=== PATIENT | female | born 1965 ===

== ENCOUNTER 2016-12-21 14:47 | Inpatient (IN) | payer BC, OTHER ==
[2016-12-21] MEDS ORDERED: Morphine 4 mg/ml ISec IVP STA (15:29)
[2016-12-21] MEDS ORDERED: Sodium Chloride 0.9% 500 ML IV STA (15:29)
--- NOTE | 2016-12-21 15:43 | ED PDOC ---
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 Reports taking Percocet for pain, states that she gets the Rx for Percocet from her pain management doctor for chronic back pain, and it improves the abdominal pain. Otherwise: (-) urinary symptoms, (-) diarrhea, (-) constipation , (-) fever, (-) melena, (-) hematochezia. Has no history of prior abdominal conditions including GB disease & PUD, and denies any abdominal surgery. Patient also states she has not taken her blood pressure medication for over a week, states that she takes Hyzaar however was not able to obtain a refill from her pmd. Also is c/o gradual onset of mild headache to her forehead which she attributes to her elevated blood pressure, reports not taking any medication for her headache. Denies any dizziness, chest pain palpitations and shortness of breath. PMD: in [place] Past Medical History - Provider Review Nursing Documentation Reviewed: Yes - Infectious Disease Hx of Infectious Diseases: None - Tetanus Immunization Tetanus Immunization: Unknown - Cardiac Hx Hypertension: Yes - Pulmonary Hx Asthma: Yes - Neurological Hx Neurological Disorder: No - HEENT Hx HEENT Disorder: No - Renal Hx Renal Disorder: No - Endocrine/Metabolic Hx Endocrine Disorders: No - Hematological/Oncological Hx Blood Disorders: No Hx Blood Transfusions: No Hx Blood Transfusion Reaction: No - Integumentary Hx Dermatological Disorder: No - Musculoskeletal/Rheumatological Hx Back Pain: Yes - Gastrointestinal Hx Gastrointestinal Disorders: No - Genitourinary/Gynecological Hx Genitourinary Disorders: No - Psychiatric Hx Psychophysiologic Disorder: No Hx Substance Use: No - Past Surgical History Past Surgical History: No Previous - Surgical History Other/Comment: tonsillectomy - Anesthesia Hx Anesthesia: Yes - Suicidal Assessment Feels Threatened In Home Enviroment: No Family/Social History - Physician Review Nursing Documentation Reviewed: Yes Family/Social History: No Known Family HX Smoking Status: Former Smoker Hx Alcohol Use: No Hx Substance Use: No Hx Substance Use Treatment: No Allergies/Home Meds Allergies/Adverse Reactions: Allergies No Known Allergies Allergy (Verified 12/21/16 15:08) Home Medications: Home Meds Medication Instructions Recorded Confirmed HCTZ/Losartan Potassium [Hyzaar 1 tab PO DAILY 12/21/16 12/21/16 12.5 MG-50 MG] oxyCODONE/Acetaminophen [Percocet 1 tab PO Q6 PRN 12/21/16 12/21/16 5/325 mg Tab] Review of Systems - Review of Systems Constitutional: Normal. absent: Fatigue, Weight Change, Fevers Respiratory: Normal. absent: SOB, Cough, Sputum Cardiovascular: Normal. absent: Chest Pain, Palpitations, Edema Gastrointestinal: Normal, Abdominal Pain (epigastric pain x 1 week), Nausea, Vomiting. absent: Stool Changes, Appetite Changes Genitourinary Female: Normal. absent: Dysuria, Frequency, Hematuria, Vaginal Discharge Musculoskeletal: Normal. absent: Arthralgias, Back Pain, Neck Pain Skin: Normal. absent: Rash, Pruritis, Skin Lesions Neurological: Normal, Headache (started this AM). absent: Dizziness, Focal Weakness Physical Exam - Physical Exam Narrative Physical Exam (Text): 12/21/16 15:37 GENERAL APPEARANCE: Patient is awake, alert, oriented x 3, in moderate distress. SKIN: Warm, dry; (-) cyanosis. EYES: (-) conjunctival pallor, (-) scleral icterus. ENMT: Mucous membranes aguila. NECK: (-) tenderness, (-) stiffness, (-) lymphadenopathy. CHEST AND RESPIRATORY: (-) rales, (-) rhonchi, (-) wheezes; breath sounds equal bilaterally. HEART AND CARDIOVASCULAR: (-) irregularity; (-) murmur, (-) gallop. ABDOMEN AND GI: (-) distention. Bowel sounds active; (+) moderate RUQ and epigastric tenderness, (+) Tobar's, (-) guarding, (-) rebound, (-) palpable masses, (-) CVA tenderness. EXTREMITIES: (-) deformity, (-) edema, (+) distal pulses. NEURO AND PSYCH: Mental status as above; (-) focal findings. Vital Signs Temp Pulse Resp BP Pulse Ox 12/21/16 20:00 68 20 144/94 H 99 12/21/16 16:48 86 18 144/77 99 12/21/16 16:06 89 156/83 H 12/21/16 15:09 98.1 F 95 H 18 94 L Medical Decision Making ED Course and Treatment: 12/21/16 15:36 51 yo F c/o intermittent epigastric pain with N/V, r/o cholecystitis vs dyspepsia. Pt is also c/o elevated BP due to not taking her hyzaar and headache. Plan: -- Labs -- IV fluids -- Urinalysis -- EKG -- CXR -- Morphine / Zofran / Pepcid - all ordered, but pt refused -- Reassess and disposition -- US ABD EKG: SR at 86 bpm, with occasional PVCs, (-) acute ST changes, as read by GAVIN. CXR : NAD, as read by GAVIN 12/21/16 19:00 On re-evaluation, patient returns from US without any incident and reports of improvement of pain. She refused all IV medications ordered. On exam, patient is laying in bed comfortably in no acute distress. Abdomen is soft with no tenderness at this time. Labs reviewed, WBC is wnl, LFTs are noted to be elevated including T bili. US abd results shows evidence of acute cholecystitis. IV zosyn ordered. Case d/w Dr. Welsh, agrees with plan for inpatient care, consults ordered as requested by Dr. Welsh. Bridge orders placed. Patient notified of diagnostic results and diagnosis. She agrees with further plan for inpatient care. - Lab Interpretations Lab Results: 12/21/16 16:00 12/21/16 16:00 Lab Results 12/21/16 18:56: Urine Color Yellow, Urine Appearance Clear, Urine pH 6.0, Ur Specific [place] >= 1.030, Urine Protein 30 H, Urine Glucose (UA) Negative, Urine Ketones Trace H, Urine Blood Negative, Urine Nitrate Negative, Urine Bilirubin Moderate H, Urine Urobilinogen 4.0 H, Ur Leukocyte Esterase Negative, Urine RBC 0 - 2, Urine WBC 0 - 2, Ur Epithelial Cells Many, Amorphous Sediment Few, Urine Bacteria Many, Urine Other Uyeast 12/21/16 16:00: Sodium 138, Potassium 4.3, Chloride 106, Carbon Dioxide 22, Anion Gap 14, BUN 14, Creatinine 0.9, Est GFR ( Amer) > 60, Est GFR (Non- Af Amer) > 60, Random Glucose 144 H, Calcium 9.1, Total Bilirubin 2.3 H, AST 391 H, ALT 363 H, Alkaline Phosphatase 225 H, Troponin I < 0.01, Total Protein 7.9, Albumin 4.1, Globulin 3.8, Albumin/Globulin Ratio 1.1, Lipase 196 12/21/16 16:00: PT 10.7, INR 0.99, APTT 24.2 12/21/16 16:00: WBC 6.5, RBC 4.49, Hgb 12.5, Hct 37.8, MCV 84.2, MCH 27.8, MCHC 33.1, RDW 15.5 H, Plt Count 321, MPV 10.8, Gran % 71.8 H, Lymph % (Auto) 20.7 L , [place] % (Auto) 5.3, Eos % (Auto) 2.0, Baso % (Auto) 0.2, Gran # 4.65, Lymph # 1.3, [place] # 0.3, Eos # 0.1, Baso # 0.01 I have reviewed the lab results: Yes (LFTs are elevated) - RAD Interpretation Narrative RAD Interpretations (Text): 12/21/16 18:35 US abd: FINDINGS: LIVER: Measures approximately 15.2 x 13.3 x 17.1 cm. Echogenic liver may be seen in setting of hepatic parenchymal disease or fatty infiltration. No focal hepatic mass identified. The main portal vein appears patent with normal directional flow. No intrahepatic bile duct dilatation. GALLBLADDER: Gallstones. Gallbladder sludge. Suspect 6 mm gallbladder polyp. Question trace pericholecystic edema. Gallbladder wall thickening measuring approximately 5 mm. Negative sonographic Tobar's sign as assessed by the director voice. COMMON BILE DUCT: Measures 6 mm. PANCREAS: Not well visualized. RIGHT KIDNEY: Measures 10.7 x 6.1 x 5.4 cm. No obstructing calculus or hydronephrosis identified. LEFT KIDNEY: Measures 11.6 x 6.4 x 5.9 cm. No obstructing calculus or hydronephrosis identified. SPLEEN: Measures approximately 10.7 cm. AORTA: Limited views appear unremarkable. IVC: Limited views appear unremarkable. OTHER FINDINGS: None. IMPRESSION: Echogenic liver may be seen in setting of hepatic parenchymal disease or fatty infiltration. Cholelithiasis. Gallbladder sludge. Gallbladder wall thickening. Question trace pericholecystic edema. Negative sonographic Tobar's sign as assessed by the director voice. Correlate clinically for possibility of cholecystitis. 6 mm suspected gallbladder polyp. No consensus exist regarding management of polyps in the size range. Current recommendations indicate continued surveillance with serial follow-up imaging at 3, 6, and 12 months. Radiology Orders: 12/21/16 15:29 ABDOMEN COMPLETE [US] Stat 12/21/16 18:37 CHEST TWO VIEWS (PA/LAT) [RAD] Stat - Medication Orders Current Medication Orders: Clonidine HCl (Catapres) 0.1 mg PO Q6 PRN PRN Reason: Systolic Blood Pressure Sodium Chloride (Sodium Chloride 0.9%) 1,000 mls @ 100 mls/hr IV .Q10H STA Stop: 12/22/16 05:05 Last Admin: 12/21/16 20:53 Dose: 100 mls/hr Piperacillin Sod/Tazobactam Sod (Zosyn 3.375 In Ns 100ml) 100 mls @ 200 mls/hr IVPB Q6 CHLESEA PRN Reason: Protocol Stop: 12/31/16 00:01 Losartan Potassium (Cozaar) 50 mg PO DAILY [facility] Last Admin: 12/21/16 22:16 Dose: 50 mg Morphine Sulfate (Morphine) 4 mg IVP Q4H PRN PRN Reason: Pain, moderate (4-7) Ondansetron HCl (Zofran Inj) 4 mg IVP Q6H PRN PRN Reason: Nausea/Vomiting Discontinued Medications Barium Sulfate (Readi-Cat 2) Confirm Administered Dose 450 ml PO .STK-MED ONE Stop: 12/21/16 20:57 Famotidine (Pepcid) 20 mg IVP STAT STA Stop: 12/21/16 15:30 Last Admin: 12/21/16 16:05 Dose: 20 mg Hydrochlorothiazide (Microzide) 12.5 mg PO STAT STA Stop: 12/21/16 15:33 Last Admin: 12/21/16 16:06 Dose: Not Given Non-Admin Reason: BP Parameters Not Met Sodium Chloride (Sodium Chloride 0.9%) 500 mls @ 1,000 mls/hr IV .Q30M STA Stop: 12/21/16 15:58 Last Admin: 12/21/16 16:06 Dose: 1,000 mls/hr Piperacillin Sod/Tazobactam Sod (Zosyn 3.375 In Ns 100ml) 100 mls @ 200 mls/hr IVPB STAT STA PRN Reason: Protocol Stop: 12/21/16 19:35 Last Admin: 12/21/16 20:41 Dose: 200 mls/hr Losartan Potassium (Cozaar) 50 mg PO STAT STA Stop: 12/21/16 15:35 Last Admin: 12/21/16 16:06 Dose: Not Given Non-Admin Reason: BP Parameters Not Met Morphine Sulfate (Morphine) 4 mg IVP STAT STA Stop: 12/21/16 15:30 Last Admin: 12/21/16 16:52 Dose: Not Given Non-Admin Reason: Patient Refused Morphine Sulfate (Morphine) 2 mg IVP Q4H PRN PRN Reason: Pain, moderate (4-7) Ondansetron HCl (Zofran Inj) 4 mg IVP STAT STA Stop: 12/21/16 15:30 Last Admin: 12/21/16 16:05 Dose: 4 mg - PA / REFUGE WORKER / Resident Statement / has reviewed & agrees with the documentation as recorded. Disposition/Present on Arrival - Present on Arrival Any Indicators Present on Arrival: No History of DVT/PE: No History of Uncontrolled Diabetes: No Urinary Catheter: No History of Decub. Ulcer: No History Surgical Site Infection Following: None - Disposition Have Diagnosis and Disposition been Completed?: Yes Diagnosis: Acute cholecystitis Disposition: HOSPITALIZED Disposition Time: 19:00 Patient Plan: Observation (inpatient obs ) Patient Problems: Current Active Problems Problem Status Onset Acute cholecystitis Acute Condition: STABLE
[2016-12-21 16:07] LABS: ADD MANUAL DIFF? NO
[2016-12-21 16:19] LABS: ALB/GLOB RATIO 1.1 (1.1-1.8); ALKALINE PHOSPHATASE 225 U/L (38-133); ALT/SGPT 363 U/L (7-56); AST/SGOT 391 U/L (15-39); BILIRUBIN,TOTAL 2.3 mg/dL (0.2-1.3); BLOOD UREA NITROGEN 14 mg/dL (7-21); CALCIUM 9.1 mg/dL (8.4-10.5); CARBON DIOXIDE 22 mmol/L (21-33); CHLORIDE 106 mmol/L (98-107); GFR AFRICAN-AMERICAN > 60; GLUCOSE,RANDOM 144 mg/dL (70-110); LIPASE 196 U/L (23-300); POTASSIUM 4.3 mmol/L (3.6-5.0); SODIUM 138 mmol/L (132-148); TOTAL PROTEIN 7.9 g/dL (5.8-8.3)
[2016-12-21 16:20] LABS: BASO # 0.01 K/mm3 (0.0-2.0); BASO % 0.2 % (0.0-3.0); EOS # 0.1 (0.0-0.7); GRAN # 4.65 (1.4-6.5); GRAN % 71.8 % (50.0-68.0); HEMATOCRIT 37.8 % (36.0-48.0); LYMPH # 1.3 (1.2-3.4); LYMPH % 20.7 % (22.0-35.0); MEAN CELL VOLUME 84.2 fL (80.0-105.0); MEAN CORPUSCULAR HEMOGLOBIN 27.8 pg (25.0-35.0); MEAN CORPUSCULAR HGB CONC 33.1 g/dl (31.0-37.0); MEAN PLATELET VOLUME 10.8 fl (7.0-11.0); MONO # 0.3 (0.1-0.6); MONO % 5.3 % (1.0-6.0); PLATELET COUNT 321 10^3/uL (120.0-450.0); RED CELL DISTRIBUTION WIDTH 15.5 % (11.5-14.5); WHITE BLOOD COUNT 6.5 10^3/ul (4.5-11.0)
[2016-12-21 16:26] LABS: INR 0.99 (0.93-1.08); PARTIAL THROMBOPLASTIN TIME 24.2 Seconds (23.7-30.8)
[2016-12-21 16:32] LABS: TROPONIN I < 0.01 ng/mL
--- NOTE | 2016-12-21 17:56 | US ---
HISTORY: epigastric pain, r/o cholecystitis COMPARISON: Gallbladder ultrasound performed 01/17/13 TECHNIQUE: Sonographic evaluation of the abdomen. FINDINGS: LIVER: Measures approximately 15.2 x 13.3 x 17.1 cm. Echogenic liver may be seen in setting of hepatic parenchymal disease or fatty infiltration. No focal hepatic mass identified. The main portal vein appears patent with normal directional flow. No intrahepatic bile duct dilatation. GALLBLADDER: Gallstones. Gallbladder sludge. Suspect 6 mm gallbladder polyp. Question trace pericholecystic edema. Gallbladder wall thickening measuring approximately 5 mm. Negative sonographic Tobar's sign as assessed by the academic affairs vice president. COMMON BILE DUCT: Measures 6 mm. PANCREAS: Not well visualized. RIGHT KIDNEY: Measures 10.7 x 6.1 x 5.4 cm. No obstructing calculus or hydronephrosis identified. LEFT KIDNEY: Measures 11.6 x 6.4 x 5.9 cm. No obstructing calculus or hydronephrosis identified. SPLEEN: Measures approximately 10.7 cm. AORTA: Limited views appear unremarkable. IVC: Limited views appear unremarkable. OTHER FINDINGS: None. IMPRESSION: Echogenic liver may be seen in setting of hepatic parenchymal disease or fatty infiltration. Cholelithiasis. Gallbladder sludge. Gallbladder wall thickening. Question trace pericholecystic edema. Negative sonographic Tobar's sign as assessed by the academic affairs vice president. Correlate clinically for possibility of cholecystitis. 6 mm suspected gallbladder polyp. No consensus exist regarding management of polyps in the size range. Current recommendations indicate continued surveillance with serial follow-up imaging at 3, 6, and 12 months.
[2016-12-21] MEDS ORDERED: Sodium Chloride 0.9% 1,000 ML IV STA (19:06)
[2016-12-21] MEDS ORDERED: Piperacillin/Tazobact 3.375 gm 100 ML IVPB STA (19:06)
[2016-12-21 19:24] LABS: URINE BILIRUBIN MODERATE (NEGATIVE); URINE BLOOD NEGATIVE (NEGATIVE); URINE GLUCOSE (UA) NEGATIVE (NEGATIVE); URINE KETONE TRACE mg/dL (NEGATIVE); URINE LEUKOCYTE ESTERASE NEGATIVE Leu/uL (NEGATIVE); URINE PROTEIN 30 mg/dL (<30 mg/dL)
[2016-12-21 19:39] LABS: URINE APPEARANCE CLEAR (CLEAR); URINE COLOR YELLOW (YELLOW)
[2016-12-21 19:44] LABS: URINE AMORPHOUS SEDIMENT FEW; URINE BACTERIA MANY (NEG); URINE EPITHELIAL CELLS MANY /hpf (0-5); URINE RBC 0 - 2 /hpf (0-2); URINE WBC 0 - 2 /hpf (0-6)
[2016-12-21] MEDS ORDERED: Barium Sulfate Susp 2.1% w/v, 2.0% w/w 450 mL Bottle PO ONE (20:56)
[2016-12-21] MEDS ORDERED: Morphine 2 mg/ml ISec IVP PRN (21:42)
[2016-12-21 22:36] VITALS: BMI 55.7
--- NOTE | 2016-12-21 23:06 | CP.PCM.CON ---
<Giuseppe Lawson - Last Filed: 12/21/16 22:46> History of Present Illness - History of Present Illness History of Present Illness: General Surgery Consult Re: acute cholecystitis HPI: 51F presented to the ER C/O intermittent RUQ and epigastric and back pain. This last week she has had multiple episodes of pain. Today pain started after eating yogurt, and pain increased to 10/10. +nausea and NBNB emesis. Took Percocet with minimal relief. + Headache. Denies F/C, D/C, SOB, chest pain, dysuria. Pt was here in 2012 and had elevated LFTs without elevated T Bili and had a polyp on US at that time. Currently, having mild epigastric pains. PMH:HTN, HLD, Chronic back pain, Hx asthma PSH: tonsillectomy SH: No tobacco, EtOH, or drug use All: NKDA Meds: See MAR Review of Systems - Review of Systems All systems: reviewed and no additional remarkable complaints except (as per HPI ) Past Patient History - Infectious Disease Hx of Infectious Diseases: None - Tetanus Immunizations Tetanus Immunization: Unknown - Past Social History Smoking Status: Former Smoker - CARDIAC Hx Hypertension: Yes - PULMONARY Hx Asthma: Yes - NEUROLOGICAL Hx Neurological Disorder: No - HEENT Hx HEENT Problems: No - RENAL Hx Chronic Kidney Disease: No - ENDOCRINE/METABOLIC Hx Endocrine Disorders: No - HEMATOLOGICAL/ONCOLOGICAL Hx Blood Disorders: No - INTEGUMENTARY Hx Dermatological Problems: No - MUSCULOSKELETAL/RHEUMATOLOGICAL Hx Musculoskeletal Disorders: Yes Hx Back Pain: Yes (chronic) Hx Falls: No Hx Herniated Disk: Yes (lower back) Other/Comment: chronic lower back pain due to herniated discs radiates down left leg, c/o sciatica - GASTROINTESTINAL Hx Gastrointestinal Disorders: Yes (obese) - GENITOURINARY/GYNECOLOGICAL Hx Genitourinary Disorders: No - PSYCHIATRIC Hx Psychophysiologic Disorder: No Hx Substance Use: No - SURGICAL HISTORY Other/Comment: tonsillectomy - ANESTHESIA Hx Anesthesia: Yes Meds Allergies/Adverse Reactions: Allergies Allergy/AdvReac Type Severity Reaction Status Date / Time No Known Allergies Allergy Verified 12/21/16 15:08 - Medications Medications: Current Medications Clonidine HCl (Catapres) 0.1 mg PO Q6 PRN PRN Reason: Systolic Blood Pressure Sodium Chloride (Sodium Chloride 0.9%) 1,000 mls @ 100 mls/hr IV .Q10H STA Stop: 12/22/16 05:05 Last Admin: 12/21/16 20:53 Dose: 100 mls/hr Piperacillin Sod/Tazobactam Sod (Zosyn 3.375 In Ns 100ml) 100 mls @ 200 mls/hr IVPB Q6 CHELSEA PRN Reason: Protocol Stop: 12/31/16 00:01 Losartan Potassium (Cozaar) 50 mg PO DAILY [facility] Last Admin: 12/21/16 22:16 Dose: 50 mg Morphine Sulfate (Morphine) 4 mg IVP Q4H PRN PRN Reason: Pain, moderate (4-7) Ondansetron HCl (Zofran Inj) 4 mg IVP Q6H PRN PRN Reason: Nausea/Vomiting Physical Exam - Constitutional Appears: Non-toxic, No Acute Distress - Head Exam Head Exam: ATRAUMATIC, NORMOCEPHALIC - Eye Exam Eye Exam: EOMI. absent: Scleral icterus - ENT Exam ENT Exam: Mucous Membranes Moist Additional comments: trachea midline - Respiratory Exam Respiratory Exam: NORMAL BREATHING PATTERN. absent: Respiratory Distress - Cardiovascular Exam Cardiovascular Exam: RRR, +S1, +S2 - GI/Abdominal Exam GI & Abdominal Exam: Soft, Tenderness (in epigastrum). absent: Distended, Firm , Guarding, Rigid Additional comments: negative sanchez's sign - Rectal Exam Rectal Exam: Deferred - Extremities Exam Extremities exam: Positive for: normal capillary refill. Negative for: calf tenderness - Back Exam Back exam: absent: CVA tenderness (L), CVA tenderness (R) - Neurological Exam Neurological exam: Alert, Oriented x3 - Psychiatric Exam Psychiatric exam: Normal Affect, Normal Mood - Skin Skin Exam: Dry, Warm Results - Vital Signs Recent Vital Signs: Last Vital Signs Temp 98.1 F 12/21/16 22:22 Pulse 73 12/21/16 22:22 Resp 20 12/21/16 22:22 BP 169/85 H 12/21/16 22:22 Pulse Ox 99 12/21/16 20:00 - Labs Result Diagrams: 12/21/16 16:00 12/21/16 16:00 - Imaging and Cardiology US - abdomen Status: Image reviewed by me, Report reviewed by me Assessment & Plan - Assessment and Plan (Free Text) Assessment: 51F with abdominal pain Plan: NPO IVF Analgesia Zofran F/U CT abd AM Labs F/U with GI eval D/W Dr. Sarahi Lawson PGY3 <Hector Mcclain - Last Filed: 01/22/17 00:11> Results - Vital Signs Recent Vital Signs: Last Vital Signs Temp 98.5 F 12/28/16 08:16 Pulse 83 12/28/16 08:16 Resp 20 12/28/16 08:16 BP 122/72 12/27/16 16:00 Pulse Ox 93 L 12/28/16 08:16 - Labs Result Diagrams: 12/28/16 07:30 12/28/16 07:30 Assessment & Plan - Assessment and Plan (Free Text) Plan: Patient was seen and examined by me. I agree with assessment and plan as per resident's note. - Date & Time Date: 12/21/16 Time: 21:40
--- NOTE | 2016-12-21 23:31 | CARD ---
APPROVED REPORT EKG Measurement Heart [id number] <Conclusion> Sinus rhythm with occasional premature ventricular complexes Low voltage QRS Borderline ECG
--- NOTE | 2016-12-21 23:51 | CON ---
DATE: 12/21/2016 CHIEF COMPLAINT: Abdominal pain times several days. HISTORY OF PRESENT ILLNESS: This is a 51-year-old female who has past medical history of high choles terol, hypertension, morbid obesity with body mass index of 55, history of tonsillectomy, admitted wi th abdominal pain. She states that she has had right upper quadrant abdominal pain in the past and s he has ignored it. She associated it with nausea, but no vomiting, had low-grade fevers, no chills. No diarrhea or constipation. No headaches or blurred vision. No cough or shortness of breath. No dysuria or frequency. PAST MEDICAL HISTORY: Significant for hypertension, high cholesterol, morbid obesity, body mass inde x of 55. PAST SURGICAL HISTORY: Significant for tonsillectomy. ALLERGIES: The patient has no known allergies. MEDICATIONS AT HOME: Include the patient to be on oxycodone and hydrochlorothiazide and losartan, wh ich is Hyzaar. She works in the [employer]. 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 She lives by herself. No travel. She was born in [place]. PHYSICAL EXAMINATION: VITAL SIGNS: Temperature is 98, blood pressure is 150/80, respiratory rate of 18, heart rate of 95. HEENT: Unremarkable. NECK: Supple. LUNGS: Have decreased breath sounds. HEART: Normal S1, S2. ABDOMEN: Right upper quadrant tenderness. No rebound, no guarding, no masses. LABORATORY EXAMINATION: Reveals a white count of 6.5, hemoglobin of 12, platelets of 321. Coagulati on is noted. BUN of 14, creatinine of 0.9, total bilirubin is 2.3. AST is 391 with ALT of 363, polo line phosphatase of 225, lipase is normal. Urinalysis is unremarkable with only 0-2 WBCs, many bacte joe, few yeast. Microbiology is pending. The patient had an ultrasound of the abdomen, which showed consistent with cholelithiasis and gallbladder sludge, gallbladder wall thickening, although negativ e sonographic Tobar sign and suspect gallbladder polyp. ASSESSMENT AND PLAN: This is a 51-year-old female with morbid obesity with body mass index of 55, hy pertension, high cholesterol with tachycardia and right upper quadrant pain with acute cholecystitis. We will start the patient on Zosyn, order a CAT scan of the abdomen and pelvis, blood culture, urin e culture, GI consultation, surgery consultation and we will make further recommendations upon availa bility of initial results and will follow closely with you. We will order a hepatitis profile, hemog lobin A1c HIV. Alexis Rios MD cc: [phone] TT: 12/21/2016 23:50:44 Confirmation # [id number] Dictation # [id number] mn
[2016-12-22] MEDS: Piperacillin/Tazobact 3.375 gm 100 ML IVPB SCH ×4 (00:11→17:59)
[2016-12-22] MEDS: Morphine 4 mg/ml ISec IVP PRN ×2 (00:11→11:20)
[2016-12-22 07:42] LABS: ADD MANUAL DIFF? NO
[2016-12-22 07:47] LABS: BASO # 0.02 K/mm3 (0.0-2.0); BASO % 0.4 % (0.0-3.0); EOS # 0.1 (0.0-0.7); GRAN # 3.52 (1.4-6.5); GRAN % 63.9 % (50.0-68.0); HEMATOCRIT 35.9 % (36.0-48.0); LYMPH # 1.5 (1.2-3.4); MEAN CELL VOLUME 84.3 fL (80.0-105.0); MEAN CORPUSCULAR HEMOGLOBIN 27.5 pg (25.0-35.0); MEAN CORPUSCULAR HGB CONC 32.6 g/dl (31.0-37.0); MEAN PLATELET VOLUME 10.7 fl (7.0-11.0); MONO # 0.4 (0.1-0.6); MONO % 6.7 % (1.0-6.0); PLATELET COUNT 294 10^3/uL (120.0-450.0); RED CELL DISTRIBUTION WIDTH 15.4 % (11.5-14.5); WHITE BLOOD COUNT 5.5 10^3/ul (4.5-11.0)
[2016-12-22 07:57] LABS: ALB/GLOB RATIO 1.1 (1.1-1.8); ALKALINE PHOSPHATASE 273 U/L (38-133); ALT/SGPT 383 U/L (7-56); AST/SGOT 310 U/L (15-39); BILIRUBIN,TOTAL 2.1 mg/dL (0.2-1.3); BLOOD UREA NITROGEN 12 mg/dL (7-21); CALCIUM 8.6 mg/dL (8.4-10.5); CARBON DIOXIDE 22 mmol/L (21-33); CHLORIDE 108 mmol/L (95-110); GFR AFRICAN-AMERICAN > 60; GLUCOSE,RANDOM 128 mg/dL (70-110); POTASSIUM 3.8 mmol/L (3.6-5.0); SODIUM 139 mmol/L (132-148)
[2016-12-22] MEDS ORDERED: Barium Sulfate Susp 2.1% w/v, 2.0% w/w 450 mL Bottle PO ONE (08:30)
--- NOTE | 2016-12-22 08:42 | CP.PCM.PN ---
<Geraldine Chin - Last Filed: 12/22/16 08:43> Subjective - Date & Time of Evaluation Date of Evaluation: 12/22/16 Time of Evaluation: 08:39 - Subjective Subjective: Surgery: Dr. Mcclain Patient doing well. Reports pain that comes and goes in the epigastric region. Denies f/c/n/v. Objective - Vital Signs/Intake and Output Vital Signs (last 24 hours): Temp Pulse Resp BP Pulse Ox 98.4 F 69 18 157/94 H 94 L 12/22/16 08:32 12/22/16 08:32 12/22/16 08:32 12/22/16 08:32 12/22/16 08:32 Intake and Output: 12/22/16 12/22/16 06:59 18:59 Intake Total 900 Balance 900 - Medications Medications: Current Medications Clonidine HCl (Catapres) 0.1 mg PO Q6 PRN PRN Reason: Systolic Blood Pressure Piperacillin Sod/Tazobactam Sod (Zosyn 3.375 In Ns 100ml) 100 mls @ 200 mls/hr IVPB Q6 CHELSEA PRN Reason: Protocol Stop: 12/31/16 00:01 Last Admin: 12/22/16 05:30 Dose: 200 mls/hr Losartan Potassium (Cozaar) 50 mg PO DAILY [facility] Last Admin: 12/21/16 22:16 Dose: 50 mg Morphine Sulfate (Morphine) 4 mg IVP Q4H PRN PRN Reason: Pain, moderate (4-7) Last Admin: 12/22/16 00:11 Dose: 4 mg Ondansetron HCl (Zofran Inj) 4 mg IVP Q6H PRN PRN Reason: Nausea/Vomiting Last Admin: 12/22/16 06:14 Dose: 4 mg - Labs Labs: 12/22/16 07:30 12/22/16 07:30 PT 10.7 Seconds (9.9-11.8) 12/21/16 16:00 INR 0.99 (0.93-1.08) 12/21/16 16:00 APTT 24.2 Seconds (23.7-30.8) 12/21/16 16:00 - Constitutional Appears: Well, Non-toxic, No Acute Distress - Head Exam Head Exam: ATRAUMATIC, NORMOCEPHALIC - Eye Exam Eye Exam: EOMI, Normal appearance - ENT Exam ENT Exam: Mucous Membranes Moist - Respiratory Exam Respiratory Exam: NORMAL BREATHING PATTERN. absent: Respiratory Distress - Cardiovascular Exam Cardiovascular Exam: REGULAR RHYTHM. absent: Tachycardia - GI/Abdominal Exam GI & Abdominal Exam: Soft. absent: Distended, Tenderness - Psychiatric Exam Psychiatric exam: Normal Affect, Normal Mood - Skin Skin Exam: Dry, Warm Assessment and Plan - Assessment and Plan (Free Text) Assessment: 51 y/o female w/ abdominal pain and transaminitis Plan: -needs GI eval -consider MRCP -trend liver enzymes -no surgical plan until after GI evaluation, diet per GI -f/u CT -d[facility] <Hector Mcclain - Last Filed: 01/22/17 00:11> Objective - Vital Signs/Intake and Output Vital Signs (last 24 hours): Temp Pulse Resp BP Pulse Ox 98.5 F 83 20 122/72 93 L 12/28/16 08:16 12/28/16 08:16 12/28/16 08:16 12/27/16 16:00 12/28/16 08:16 - Labs Labs: 12/28/16 07:30 12/28/16 07:30 PT 10.3 Seconds (9.9-11.8) 12/25/16 08:00 INR 0.95 (0.93-1.08) 12/25/16 08:00 APTT 25.4 Seconds (23.7-30.8) 12/25/16 08:00 Assessment and Plan - Assessment and Plan (Free Text) Plan: Patient was seen and examined by me. I agree with assessment and plan as per resident's note.
--- NOTE | 2016-12-22 10:12 | PN ---
DATE: 12/22/2016 The patient is in bed, in no acute distress. Her abdominal pain is somewhat improved. PHYSICAL EXAMINATION: VITAL SIGNS: Temperature is 98, blood pressure is 150/70, respiratory rate 18, heart rate of 69. HEENT: Unremarkable. NECK: Supple. LUNGS: Have decreased breath sounds. HEART: Normal S1, S2. ABDOMEN: Soft, nontender. LABORATORY DATA: Reveals a white count of 5.5, hemoglobin 11. The chemistries reveal a BUN of 12, c reatinine of 1.0. LFTs are elevated. Urinalysis is noted. Microbiology ____ are pending. Review o f the orders reveals the patient's hepatitis profile is pending. Hemoglobin A1c is pending. The pat ient is on Zosyn. CAT scan of the abdomen and pelvis is pending. ASSESSMENT AND PLAN: A 51-year-old female with morbid obesity with a body mass index of 55, high cho lesterol, hypertension, admitted here with right upper quadrant pain and possible acute cholecystitis . Will check on the CAT scan results. Awaiting surgical and GI evaluation and check on the culture results. Will follow closely with you. Alexis Rios MD cc: 350 TT: 12/22/2016 09:24:56 Confirmation # [id number] Dictation # [id number]
--- NOTE | 2016-12-22 10:27 | RAD ---
HISTORY: epigastric pain COMPARISON: 07/04/2014 TECHNIQUE: Chest PA and lateral FINDINGS: LUNGS: No active pulmonary disease. PLEURA: No significant pleural effusion identified. No pneumothorax apparent. CARDIOVASCULAR: Normal. OSSEOUS STRUCTURES: No significant abnormalities. VISUALIZED UPPER ABDOMEN: Normal. OTHER FINDINGS: None. IMPRESSION: No active disease.
[2016-12-22] MEDS ORDERED: Morphine 4 mg/ml ISec ONE (11:17)
--- NOTE | 2016-12-22 11:34 | HP ---
A 51-year-old diabetic female came in with abdominal pain to the Emergency Room. HISTORY OF PRESENT ILLNESS: A 51-year-old obese female from [place] came in here with abdominal jelani n, nausea, came in to the Emergency Room for further evaluation. She denied any fever, any chills. She feels nauseous. She vomited 1 episode and brought in for further evaluation of her abdominal jelani n. The patient usually does not take any medicines except Hyzaar for blood pressure medicine. No ot her complaint and she does have some mild headache and she did not take her blood pressure medicine f or 2 days. She also denied any chest pain, any dizziness, any other complaints, any fever or chills. PAST MEDICAL HISTORY: Hypertension, obesity. ALLERGIES: No known allergies. SOCIAL HISTORY: Former smoker. She quit years ago. No drinking, no drugs. REVIEW OF SYSTEMS: No chest pain, no short of breath. She does complain of sometimes back pain and knee pain, otherwise negative. MEDICATIONS: She takes Hyzaar 50/12.5. PHYSICAL EXAMINATION: GENERAL: The patient in bed, alert, awake, oriented x 3. VITAL SIGNS: Temperature 98.1, heart rate 95, blood pressure 156/83, respirations 18, saturation 99% room air. HEAD AND NECK: Normal. No JVD, no thyromegaly. CHEST: Clear, good air entry. CARDIAC: First sound, second sound normal. ABDOMEN: Obese, tender epigastric area and more on the right side. EXTREMITIES: No edema. NEUROLOGIC: Normal. LABORATORY DATA: White count 6.5, hemoglobin 12.5, hematocrit 37.8, platelets 321. PT, PTT is radha l. Chemistry: Sodium 138, potassium 4.3, chloride 106, bicarb 22, BUN 14, creatinine 0.9, total rashmi irubin 2.3, blood sugar 144, AST 391, ALT 363, alk phos 225, troponin is negative. Total protein, al bumin and globulin normal range and ratio. The patient also had an abdominal ultrasound which shows cholelithiasis, gallbladder sludge and thickened gallbladder, question of trace pericholecystic fluid , negative Tobar signs. There is 6 mm suspected gallbladder polyps and the patient has echogenic li isac. Otherwise, liver and kidneys are normal, spleen normal, aorta normal, common bile duct ____ 6 m m. Electrocardiogram on 12/21, it was reported to be normal sinus rhythm, low voltage QRS, and an occasi onal premature ventricular complexes, QT is 376, QTC 449. IMPRESSION AND PLAN: This is a 51-year-old obese female came in with abdominal pain, found to have a bnormal liver function test indicating intrahepatic ductal obstruction, possible cholecystitis. At t his time, we will admit the patient to medical floor, IV antibiotic, Zosyn. Gastroenterology consult , Dr. Bui, Dr. Mcclain for surgical evaluation. Continue pain medicine, IV fluid, IV Proton ix. The patient ambulating, follow up clinically. Resume her blood pressure medicine, Cozaar 50 mg. The patient also having clonidine p.r.n. for systolic hypertension 170 and above. Eben Welsh MD cc: 223 TT: 12/22/2016 11:33:58 tn
[2016-12-22] MEDS ORDERED: Piperacillin/Tazobact 3.375 gm 100 ML IVPB ONE (11:55)
--- NOTE | 2016-12-22 12:57 | CON ---
DATE: 12/22/2016 Seen and examined at the bedside earlier today. The chart was reviewed. REQUEST FOR CONSULT: Acute cholecystitis. HISTORY OF PRESENT ILLNESS: This is a 51-year-old, morbidly obese female with a past medical history of asthma, chronic back pain, hypertension, came to the Emergency Room with complaints of epigastric and right upper quadrant pain. The patient states that she had it for at least a week and the pain became more intense. Initially, she thought that she was having heartburn, but then she started to h ave the pain radiate to her back. She takes Percocet for her chronic back pain and took the Percocet to alleviate the abdominal pain. It did have minimal relief. She did complain of headache. She di d have some nausea and vomiting, but nonbloody. In the past, the patient did have, back in 2012, com plaints of abdominal discomfort and she had an ultrasound done back in 2012, which a gallbladder poly p was noted. She underwent an MRI of the abdomen and it reported no gallstones or gallbladder polyp within the gallbladder. She underwent an endoscopy and an endoscopic ultrasound which she was found to have gastric erosions, esophagitis and the common bile duct was reported to be normal and no gallb ladder polyp was seen. On this admission, she had an abdominal ultrasound and she was found to have gallstones, gallbladder sludge and suspected 6 mm gallbladder polyp. There was a question of trace o f pericholecystic edema and gallbladder wall thickening, but a negative Tobar's sign. Her common bi le duct measured 6 mm. The patient denies any fever or chills. No complaints of any hematemesis or bleeding per rectum. Occasionally, she may get constipated from her pain medication, but takes over- the-counter laxatives to alleviate this. Never noticed any blood. She is noted to have elevated sanam er enzymes. PAST MEDICAL HISTORY: As stated above, hypertension, chronic back pain, asthma, hyperlipidemia, esop hagitis, morbid obesity, herniated disk. PAST SURGICAL HISTORY: She had a tonsillectomy. SOCIAL HISTORY: Denies smoking, ETOH, or drug use. ALLERGIES: No known drug allergies. MEDICATIONS: Reviewed per AUG. REVIEW OF SYSTEMS: Systems reviewed with positive findings, see HPI. VITAL SIGNS: Temperature is 98.4, blood pressure 157/94, pulse 69, respirations 18, 94 on room air. LABORATORY WORK: WBC is 5.5, H and H is 11.7 and 35.9, platelets are 294. PT is 10.7, INR is 0.99, PTT is 24.2. Sodium is 139, K is 3.8, BUN is 12 and creatinine is 1.0. Her total bilirubin is 2.1. On admission it was 2.3. AST is 310, on admission 391. ALT 383. Alkaline phosphatase is 273. So her liver enzymes are not much improvement. Lipase on admission is 196. She had a chest x-ray done and that showed no active disease, no pulmonary disease, no pleural effusi on or pneumothorax. Her ultrasound of the abdomen, like I said, showed gallstones, gallbladder sludg e, suspected 6 mm gallbladder polyp, question of trace pericholecystic edema, gallbladder wall thicke yonathan measuring approximately 5 mm. Negative sonographic Tobar's sign by advertising assistant. The liver is echogenic, may be in the setting of a hepatic parenchymal disease or fatty liver, no mass identified. No intrahepatic bile duct dilatation and the portal vein appears and normal flow. CBD measur es 6 mm. Pancreas not well visualized. PHYSICAL EXAMINATION: HEENT: Sclerae are anicteric. NECK: Supple. CARDIAC: S1, S2. LUNGS: Sounds are clear. ABDOMEN: With bowel sounds, soft. She does have right upper quadrant tenderness. Not much in the e pigastric. No rebound, guarding, or organomegaly. EXTREMITIES: Positive pedal pulses, no edema. NEUROLOGIC: Awake, alert, and oriented. ASSESSMENT: This is a 51-year-old female with a history of chronic back pain, history of herniated d isk, hypertension, asthma, morbid obesity who came to the Emergency Room with complaint of abdominal pain, question of gallbladder polyp in the past. Had esophagogastroduodenoscopy no gallbladder polyp was seen. The patient is noted to have cholelithiasis and sludge. Again, there is a question about the gallbladder polyp and elevated liver enzymes. PLAN: The patient is going for a CT scan of abdomen and pelvis. She tolerated the oral contrast. W e will request for MRCP without contrast. Discussed with the patient, she will try to go for the MRI . She would prefer open MRI. Offered patient some premedication prior to, she declined. She will t ry to go for this MRI. Currently n.p.o. Continue IV fluids for hydration. She is on normal saline at 100 mL an hour. Will order Protonix 40 daily. The patient has been started on Zosyn as per ID an d monitor her liver enzymes and follow up the hepatitis panel. Request for MRCP, rule out any CBD stones. The patient is also being followed by surgery. Thank you for this consult and for allowing us to participate in your patient's care. We will make caridad maza recommendations based upon patient's clinical course. The patient was seen and case discussed with Dr. Bui. Nicolle MCKEON cc: [id number] TT: 12/22/2016 12:56:24 Confirmation # [id number] Dictation # [id number]
--- NOTE | 2016-12-22 16:49 | CT ---
PROCEDURE: CT Abdomen and Pelvis with contrast HISTORY: gb ds COMPARISON: Ultrasound abdomen from 12/21/2016 TECHNIQUE: CT scan of the abdomen and pelvis was performed without administration of intravenous contrast. Oral contrast was administered. Coronal and sagittal reformatted images were obtained. Radiation dose: Total exam DLP = 1747.17 mGy-cm. This CT exam was performed using one or more of the following dose reduction techniques: Automated exposure control, adjustment of the mA and/or kV according to patient size, and/or use of iterative reconstruction technique. FINDINGS: LOWER THORAX: The lung bases are clear LIVER: The liver is normal in size. No gross lesion or ductal dilatation. GALLBLADDER AND BILE DUCTS: There are small gallstones, mild gallbladder distention and mild wall thickening in the fundus of the gallbladder. No pericholecystic fluid. There is mild dilatation of the common bile duct. PANCREAS: The pancreas is normal in size without ductal dilatation or calcifications. SPLEEN: The spleen is normal in size. No focal lesion. ADRENALS: Both adrenal glands are normal in size without discrete nodule. KIDNEYS AND URETERS: Both kidneys are normal in size without hydronephrosis or nephrolithiasis. VASCULATURE: No aortic aneurysm. BOWEL: Unremarkable. No obstruction. No gross mural thickening. APPENDIX: Normal appendix. PERITONEUM: No free fluid. No free air. LYMPH NODES: No enlarged lymph nodes. BLADDER: Unremarkable. REPRODUCTIVE: The uterus is enlarged and lobular. No adnexal masses. BONES: No acute fracture. Within normal limits for the patient's age. OTHER FINDINGS: None. IMPRESSION: 1. Mild gallbladder distention, cholelithiasis and mild wall-thickening in the fundus of the gallbladder may represent acute calculus cholecystitis in the appropriate clinical setting. Also noted is mild dilatation of the common bile duct. No CT evidence for choledocholithiasis however if there is a clinical concern, an MRCP may be performed to exclude choledocholithiasis. 2. Mildly enlarged lobular uterus. A dedicated pelvic ultrasound on a nonemergent basis is recommended to exclude fibroid uterus.
[2016-12-23] MEDS: Piperacillin/Tazobact 3.375 gm 100 ML IVPB SCH ×4 (01:00→17:20)
[2016-12-23] MEDS: Morphine 4 mg/ml ISec IVP PRN ×3 (03:06→18:19)
[2016-12-23 06:37] LABS: ADD MANUAL DIFF? NO
[2016-12-23 06:48] LABS: BASO # 0.02 K/mm3 (0.0-2.0); BASO % 0.3 % (0.0-3.0); EOS # 0.1 (0.0-0.7); EOS % 1.9 % (1.5-5.0); GRAN # 4.38 (1.4-6.5); HEMATOCRIT 35.9 % (36.0-48.0); LYMPH # 1.6 (1.2-3.4); LYMPH % 25.3 % (22.0-35.0); MEAN CELL VOLUME 85.3 fL (80.0-105.0); MEAN CORPUSCULAR HEMOGLOBIN 27.3 pg (25.0-35.0); MEAN PLATELET VOLUME 10.1 fl (7.0-11.0); MONO # 0.3 (0.1-0.6); MONO % 4.5 % (1.0-6.0); PLATELET COUNT 281 10^3/uL (120.0-450.0); RED CELL DISTRIBUTION WIDTH 15.7 % (11.5-14.5); WHITE BLOOD COUNT 6.4 10^3/ul (4.5-11.0)
[2016-12-23 06:56] LABS: ALB/GLOB RATIO 0.9 (1.1-1.8); ALKALINE PHOSPHATASE 229 U/L (38-133); ALT/SGPT 268 U/L (7-56); AST/SGOT 120 U/L (15-39); BILIRUBIN,TOTAL 1.1 mg/dL (0.2-1.3); BLOOD UREA NITROGEN 9 mg/dL (7-21); CALCIUM 8.2 mg/dL (8.4-10.5); CARBON DIOXIDE 20 mmol/L (21-33); CHLORIDE 109 mmol/L (98-107); GFR AFRICAN-AMERICAN > 60; GLUCOSE,RANDOM 96 mg/dL (70-110); POTASSIUM 3.9 mmol/L (3.6-5.0); SODIUM 138 mmol/L (132-148); TOTAL PROTEIN 6.8 g/dL (5.8-8.3)
--- NOTE | 2016-12-23 07:23 | CP.PCM.PN ---
<Kary Ann - Last Filed: 12/23/16 07:24> Subjective - Date & Time of Evaluation Date of Evaluation: 12/23/16 Time of Evaluation: 05:30 - Subjective Subjective: Pt s/e at bedside this AM. NAEO. Patient denies any nausea, vomiting, and states that pain persists but is much improved since yesterday. Objective - Vital Signs/Intake and Output Vital Signs (last 24 hours): Temp Pulse Resp BP Pulse Ox 97.8 F 67 20 168/86 H 97 12/22/16 16:00 12/22/16 16:00 12/22/16 16:00 12/22/16 16:00 12/22/16 16:00 Intake and Output: 12/23/16 12/23/16 06:59 18:59 Intake Total 1200 Balance 1200 - Medications Medications: Current Medications Clonidine HCl (Catapres) 0.1 mg PO Q6 PRN PRN Reason: Systolic Blood Pressure Piperacillin Sod/Tazobactam Sod (Zosyn 3.375 In Ns 100ml) 100 mls @ 200 mls/hr IVPB Q6 [facility] PRN Reason: Protocol Stop: 12/31/16 00:01 Last Admin: 12/23/16 06:39 Dose: 200 mls/hr Lorazepam (Ativan) 1 mg IVP ONCE ONE PRN Reason: Protocol Stop: 12/23/16 08:01 Losartan Potassium (Cozaar) 50 mg PO DAILY [facility] Last Admin: 12/22/16 09:15 Dose: 50 mg Morphine Sulfate (Morphine) 4 mg IVP Q4H PRN PRN Reason: Pain, moderate (4-7) Last Admin: 12/23/16 06:43 Dose: 4 mg Ondansetron HCl (Zofran Inj) 4 mg IVP Q6H PRN PRN Reason: Nausea/Vomiting Last Admin: 12/23/16 03:06 Dose: 4 mg Pantoprazole Sodium (Protonix Inj) 40 mg IVP DAILY [facility] Last Admin: 12/22/16 10:26 Dose: 40 mg - Labs Labs: 12/23/16 06:36 12/23/16 06:36 PT 10.7 Seconds (9.9-11.8) 12/21/16 16:00 INR 0.99 (0.93-1.08) 12/21/16 16:00 APTT 24.2 Seconds (23.7-30.8) 12/21/16 16:00 - Constitutional Appears: Well, Non-toxic, No Acute Distress - Head Exam Head Exam: ATRAUMATIC, NORMOCEPHALIC - Eye Exam Eye Exam: Normal appearance. absent: Conjunctival injection, Scleral icterus - ENT Exam ENT Exam: Mucous Membranes Moist, Normal Oropharynx - Respiratory Exam Respiratory Exam: NORMAL BREATHING PATTERN. absent: Accessory Muscle Use, Respiratory Distress - Cardiovascular Exam Cardiovascular Exam: RRR - GI/Abdominal Exam GI & Abdominal Exam: Soft, Tenderness (Moderate tenderness to palpation in the RUQ an epigastrium). absent: Distended, Rebound - Extremities Exam Extremities Exam: absent: Calf Tenderness, Pedal Edema, Tenderness - Neurological Exam Neurological Exam: Alert, Awake, Oriented x3 - Psychiatric Exam Psychiatric exam: Normal Affect, Normal Mood - Skin Skin Exam: Dry, Intact, Normal Color, Warm Assessment and Plan - Assessment and Plan (Free Text) Assessment: 51 y/o female w/ abdominal pain and transaminitis Abd US: sludge in the gallbladder, wall thickening, trace pericholecystic edema , negative sanchez's, possible polyp CT A/P with contrast: mild gallbladder distension, cholelithiasis, mild wall gallbladder wall thickening, mild CBD dilation LFT's trending down today, with total bilirubin WNL Clinically improving Plan: -needs GI eval -consider MRCP -trend liver enzymes -no surgical plan until after GI evaluation, diet per GI Will d/w Dr. Sarahi Ann, PGY1 <Hector Mcclain - Last Filed: 01/22/17 00:12> Objective - Vital Signs/Intake and Output Vital Signs (last 24 hours): Temp Pulse Resp BP Pulse Ox 98.5 F 83 20 122/72 93 L 12/28/16 08:16 12/28/16 08:16 12/28/16 08:16 12/27/16 16:00 12/28/16 08:16 - Labs Labs: 12/28/16 07:30 12/28/16 07:30 PT 10.3 Seconds (9.9-11.8) 12/25/16 08:00 INR 0.95 (0.93-1.08) 12/25/16 08:00 APTT 25.4 Seconds (23.7-30.8) 12/25/16 08:00 Assessment and Plan - Assessment and Plan (Free Text) Plan: Patient was seen and examined by me. I agree with assessment and plan as per resident's note.
--- NOTE | 2016-12-23 08:48 | CON ---
DATE: 12/22/2016 This is an addendum to the GI progress report dictated by Nicolle Meza APN. This patient complains of severe pain in the right upper quadrant area radiating through to the back. The CT, sonograms are reviewed. Will request for HIDA scan. We will get MRI to further evaluate. Continue the antibiotics. Follow up of the LFTs. Meryl Bui MD cc: [phone] TT: 12/23/2016 08:47:56 Confirmation # [id number] Dictation # [id number] [id number]
--- NOTE | 2016-12-23 15:59 | CP.PCM.PN ---
Subjective - Date & Time of Evaluation Date of Evaluation: 12/23/16 Time of Evaluation: 15:15 - Subjective Subjective: Patient has very poor veins,needs iv access Objective - Vital Signs/Intake and Output Vital Signs (last 24 hours): Temp Pulse Resp BP Pulse Ox 97.7 F 76 17 149/96 H 96 12/23/16 06:00 12/23/16 09:32 12/23/16 06:00 12/23/16 09:32 12/23/16 06:00 Intake and Output: 12/23/16 12/23/16 06:59 18:59 Intake Total 1200 Balance 1200 - Medications Medications: Current Medications Clonidine HCl (Catapres) 0.1 mg PO Q6 PRN PRN Reason: Systolic Blood Pressure Piperacillin Sod/Tazobactam Sod (Zosyn 3.375 In Ns 100ml) 100 mls @ 200 mls/hr IVPB Q6 [facility] PRN Reason: Protocol Stop: 12/31/16 00:01 Last Admin: 12/23/16 13:11 Dose: 200 mls/hr Losartan Potassium (Cozaar) 50 mg PO DAILY [facility] Last Admin: 12/23/16 09:32 Dose: 50 mg Morphine Sulfate (Morphine) 4 mg IVP Q4H PRN PRN Reason: Pain, moderate (4-7) Last Admin: 12/23/16 06:43 Dose: 4 mg Ondansetron HCl (Zofran Inj) 4 mg IVP Q6H PRN PRN Reason: Nausea/Vomiting Last Admin: 12/23/16 03:06 Dose: 4 mg Pantoprazole Sodium (Protonix Inj) 40 mg IVP DAILY [facility] Last Admin: 12/23/16 09:32 Dose: 40 mg - Labs Labs: 12/23/16 06:36 12/23/16 06:36 PT 10.7 Seconds (9.9-11.8) 12/21/16 16:00 INR 0.99 (0.93-1.08) 12/21/16 16:00 APTT 24.2 Seconds (23.7-30.8) 12/21/16 16:00 - Constitutional Appears: No Acute Distress Assessment and Plan - Assessment and Plan (Free Text) Assessment: Poor venous access Plan: Hep lock inserted in the R wrist region. # 24 angiocath used.
--- NOTE | 2016-12-23 16:59 | MRI ---
PROCEDURE: Magnetic Resonance Cholangiopancreatography HISTORY: Elevated liver function tests. Rule out CBD stone COMPARISON: 01/19/2013. TECHNIQUE: Multiplanar, multisequence MR images of the abdomen were obtained, including heavily T2 weighted MRCP images of the biliary system. Rotating maximum intensity projection images of the biliary system were generated. FINDINGS: MRCP: The common bile duct is of a normal caliber. The common duct measures 5.5 mm in diameter. There is a small filling defect in the distal common duct measuring 2-3 mm in diameter which is suspicious for a nonobstructing stone. The finding can be seen on T2 coronal image 15 series 10 and image 4 series 9 as well as the thin section MRCP images image 25 series 6. LIVER: Unremarkable. GALLBLADDER: 9 mm gallstone. SPLEEN: Unremarkable. PANCREAS: Unremarkable. ADRENALS: Unremarkable. KIDNEYS: Unremarkable. AORTA: No aneurysm. ASCITES: None. OTHER FINDINGS: None. IMPRESSION: Probable 2-3 mm nonobstructing stone in the distal CBD. CBD is normal in caliber. 9 mm gallstone
--- NOTE | 2016-12-23 17:49 | PN ---
DATE: 12/23/2016 The patient is seen earlier this morning in room 366, bed 3. Still has pain on and off. No fevers, no chills. No nausea or vomiting at this point. PHYSICAL EXAMINATION: VITAL SIGNS: Temperature is 97, blood pressure is 140/90, respiratory rate of 18. HEENT: Unremarkable. LABORATORY DATA: Reveals a white count of 6.4, hemoglobin of 11, platelets of 281. BUN of 9, creati nine of 0.9. LFTs are improving. Urinalysis is noted. The patient's HIV is negative. Hepatitis pr ofile is negative. Microbiology reveals the blood cultures. note is reviewed. The patien t's CAT scan of the abdomen and pelvis is noted. Review of orders reveals the patient to be on Zosyn . ASSESSMENT AND PLAN: This is a 51-year-old female, morbidly obese with a BMI of 55, high cholesterol and hypertension, admitted with acute cholecystitis and right upper quadrant pain. Currently on Zos yn. Cultures negative thus far and blood and urine cultures negative. Will continue Zosyn pending [facility] results. We will follow closely with you. Hepatitis profile is negative. Alexis Rios MD cc: 350 TT: 12/23/2016 17:48:38 Confirmation # [id number] Dictation # [id number]
[2016-12-24] MEDS: Piperacillin/Tazobact 3.375 gm 100 ML IVPB SCH ×5 (00:45→23:10)
[2016-12-24] MEDS: Morphine 4 mg/ml ISec IVP PRN ×4 (00:46→23:08)
[2016-12-24 07:21] LABS: ADD MANUAL DIFF? NO
[2016-12-24 07:28] LABS: BASO # 0.01 K/mm3 (0.0-2.0); BASO % 0.2 % (0.0-3.0); EOS # 0.1 (0.0-0.7); EOS % 2.4 % (1.5-5.0); GRAN # 4.16 (1.4-6.5); GRAN % 70.7 % (50.0-68.0); HEMATOCRIT 32.8 % (36.0-48.0); LYMPH # 1.2 (1.2-3.4); LYMPH % 20.7 % (22.0-35.0); MEAN CELL VOLUME 85.4 fL (80.0-105.0); MEAN CORPUSCULAR HEMOGLOBIN 27.6 pg (25.0-35.0); MEAN CORPUSCULAR HGB CONC 32.3 g/dl (31.0-37.0); MEAN PLATELET VOLUME 10.5 fl (7.0-11.0); MONO # 0.4 (0.1-0.6); PLATELET COUNT 254 10^3/uL (120.0-450.0); RED CELL DISTRIBUTION WIDTH 15.6 % (11.5-14.5); WHITE BLOOD COUNT 5.9 10^3/ul (4.5-11.0)
[2016-12-24 07:45] LABS: ALB/GLOB RATIO 0.9 (1.1-1.8); ALKALINE PHOSPHATASE 225 U/L (38-133); ALT/SGPT 191 U/L (7-56); AST/SGOT 80 U/L (15-39); BILIRUBIN,TOTAL 0.6 mg/dL (0.2-1.3); BLOOD UREA NITROGEN 7 mg/dL (7-21); CALCIUM 8.1 mg/dL (8.4-10.5); CARBON DIOXIDE 20 mmol/L (21-33); CHLORIDE 108 mmol/L (98-107); GFR AFRICAN-AMERICAN > 60; GLUCOSE,RANDOM 120 mg/dL (70-110); POTASSIUM 3.5 mmol/L (3.6-5.0); SODIUM 136 mmol/L (132-148); TOTAL PROTEIN 6.4 g/dL (5.8-8.3)
[2016-12-24] MEDS ORDERED: Potassium Chloride 20 mEq ER Tab PO ONE (08:38)
--- NOTE | 2016-12-24 08:43 | CP.PCM.PN ---
<Lee Collier - Last Filed: 12/24/16 08:40> Subjective - Date & Time of Evaluation Date of Evaluation: 12/24/16 Time of Evaluation: 08:40 - Subjective Subjective: General Surgery Progress Note for Dr. Mcclain This 51F was seen and examined this AM at bedside. No acute events reports over night. The patient reports improvement in her pain. Denies any fevers, chills chest pain or sob. Objective - Vital Signs/Intake and Output Vital Signs (last 24 hours): Temp Pulse Resp BP Pulse Ox 97.7 F 76 17 149/96 H 96 12/23/16 06:00 12/23/16 09:32 12/23/16 06:00 12/23/16 09:32 12/23/16 06:00 Intake and Output: 12/24/16 12/24/16 06:59 18:59 Intake Total 0 Output Total 0 Balance 0 - Medications Medications: Current Medications Clonidine HCl (Catapres) 0.1 mg PO Q6 PRN PRN Reason: Systolic Blood Pressure Piperacillin Sod/Tazobactam Sod (Zosyn 3.375 In Ns 100ml) 100 mls @ 200 mls/hr IVPB Q6 [facility] PRN Reason: Protocol Stop: 12/31/16 00:01 Last Admin: 12/24/16 05:26 Dose: 200 mls/hr Losartan Potassium (Cozaar) 50 mg PO DAILY [facility] Last Admin: 12/23/16 09:32 Dose: 50 mg Losartan Potassium (Cozaar) 100 mg PO DAILY [facility] Morphine Sulfate (Morphine) 4 mg IVP Q4H PRN PRN Reason: Pain, moderate (4-7) Last Admin: 12/24/16 05:27 Dose: 4 mg Ondansetron HCl (Zofran Inj) 4 mg IVP Q6H PRN PRN Reason: Nausea/Vomiting Last Admin: 12/23/16 03:06 Dose: 4 mg Pantoprazole Sodium (Protonix Inj) 40 mg IVP DAILY [facility] Last Admin: 12/23/16 09:32 Dose: 40 mg Potassium Chloride (K-Dur 20 Meq Er Tab) 20 meq PO ONCE ONE Stop: 12/24/16 08:39 - Labs Labs: 12/24/16 07:00 12/24/16 07:00 PT 10.7 Seconds (9.9-11.8) 12/21/16 16:00 INR 0.99 (0.93-1.08) 12/21/16 16:00 APTT 24.2 Seconds (23.7-30.8) 12/21/16 16:00 - Constitutional Appears: Well, Non-toxic, No Acute Distress - Head Exam Head Exam: ATRAUMATIC, NORMOCEPHALIC - Eye Exam Eye Exam: Normal appearance. absent: Conjunctival injection, Scleral icterus - ENT Exam ENT Exam: Mucous Membranes Moist, Normal Oropharynx - Respiratory Exam Respiratory Exam: NORMAL BREATHING PATTERN. absent: Accessory Muscle Use, Respiratory Distress - Cardiovascular Exam Cardiovascular Exam: RRR - GI/Abdominal Exam GI & Abdominal Exam: Soft, Tenderness (Moderate tenderness to palpation in the RUQ an epigastrium). absent: Distended, Rebound - Extremities Exam Extremities Exam: absent: Calf Tenderness, Pedal Edema, Tenderness - Neurological Exam Neurological Exam: Alert, Awake, Oriented x3 - Psychiatric Exam Psychiatric exam: Normal Affect, Normal Mood - Skin Skin Exam: Dry, Intact, Normal Color, Warm Assessment and Plan - Assessment and Plan (Free Text) Assessment: This is a 51Fwith a PMH of HTN, HLD, who presented with abdominal pain and transaminitis Abd US: sludge in the gallbladder, wall thickening, trace pericholecystic edema, negative sanchez's, possible polyp, MRCP: 2-3mm non obstruction stone with 9mm stone in GB -Vital signs stable -LFT's continue to trend down today -needs GI eval -no surgical plan until after GI evaluation, diet per GI Will discuss with Dr. Sarahi Collier PGY1 <Hector Mcclain - Last Filed: 01/22/17 00:12> Objective - Vital Signs/Intake and Output Vital Signs (last 24 hours): Temp Pulse Resp BP Pulse Ox 98.5 F 83 20 122/72 93 L 12/28/16 08:16 12/28/16 08:16 12/28/16 08:16 12/27/16 16:00 12/28/16 08:16 - Labs Labs: 12/28/16 07:30 12/28/16 07:30 PT 10.3 Seconds (9.9-11.8) 12/25/16 08:00 INR 0.95 (0.93-1.08) 12/25/16 08:00 APTT 25.4 Seconds (23.7-30.8) 12/25/16 08:00 Assessment and Plan - Assessment and Plan (Free Text) Assessment: Patient was seen and examined by me. I agree with assessment and plan as per resident's note.
--- NOTE | 2016-12-24 13:08 | PN ---
DATE: 12/24/2016 The patient is in bed, in no acute distress, nontoxic. PHYSICAL EXAMINATION: VITAL SIGNS: Temperature is 98, blood pressure is 160/80, respiratory rate of 20, heart rate of 76. HEENT: Unremarkable. NECK: Supple. LUNGS: Have decreased breath sounds. HEART: Normal S1, S2. ABDOMEN: Soft, nontender. LABORATORY EXAMINATION: Reveals a white count of 5.9, hemoglobin of 10. Chemistries reveals the BUN of 7, creatinine of 0.8. LFTs are improving. Urinalysis is noted. Serology is negative for hepati tis and HIV. Microbiology reveals blood cultures and urine cultures are negative. note is reviewed and no surgical plan until GI evaluation. Dr. Mcginnis's note is reviewed. MRCP reading is also noted. Common bile duct is normal, common duct measures 5.5, small filling de fect in distal common bile duct measuring 2-3 mm in diameter which is suspicious for a nonobstructive stone and there is also a 9 mm gallstone. ASSESSMENT AND PLAN: A 51-year-old female with morbid obesity with a body mass index of 55, high cho lesterol, hypertension. Admitted with acute cholecystitis, right upper quadrant pain. Currently on Zosyn. Cultures negative. MRCP results noted. Hepatitis profile is negative. Review of the orders reveals the Zosyn to be active. Waiting for GI input. Alexis Rios MD cc: [id number] TT: 12/24/2016 13:07:25 Confirmation # [id number] Dictation # [id number] en
[2016-12-24] MEDS: Sodium Chloride 0.45% 1,000 ML IV SCH (20:10)
[2016-12-25] MEDS: Piperacillin/Tazobact 3.375 gm 100 ML IVPB SCH ×3 (06:03→17:22)
[2016-12-25 08:04] LABS: ADD MANUAL DIFF? NO
[2016-12-25 08:23] LABS: ALKALINE PHOSPHATASE 268 U/L (38-133); ALT/SGPT 263 U/L (7-56); AST/SGOT 226 U/L (15-39); BILIRUBIN,DIRECT 0.5 mg/dL (0.0-0.4); BILIRUBIN,TOTAL 0.6 mg/dL (0.2-1.3); BLOOD UREA NITROGEN 4 mg/dL (7-21); CALCIUM 8.6 mg/dL (8.4-10.5); CARBON DIOXIDE 23 mmol/L (21-33); CHLORIDE 107 mmol/L (98-107); GFR AFRICAN-AMERICAN > 60; GLUCOSE,RANDOM 115 mg/dL (70-110); POTASSIUM 3.8 mmol/L (3.6-5.0); SODIUM 144 mmol/L (132-148); TOTAL PROTEIN 6.5 g/dL (5.8-8.3)
[2016-12-25 08:26] LABS: INR 0.95 (0.93-1.08); PARTIAL THROMBOPLASTIN TIME 25.4 Seconds (23.7-30.8)
[2016-12-25 08:30] LABS: BASO # 0.02 K/mm3 (0.0-2.0); BASO % 0.5 % (0.0-3.0); EOS # 0.1 (0.0-0.7); EOS % 3.3 % (1.5-5.0); GRAN # 2.35 (1.4-6.5); GRAN % 54.9 % (50.0-68.0); HEMATOCRIT 32.8 % (36.0-48.0); LYMPH # 1.5 (1.2-3.4); LYMPH % 34.3 % (22.0-35.0); MEAN CELL VOLUME 85.6 fL (80.0-105.0); MEAN CORPUSCULAR HEMOGLOBIN 27.9 pg (25.0-35.0); MEAN CORPUSCULAR HGB CONC 32.6 g/dl (31.0-37.0); MEAN PLATELET VOLUME 10.4 fl (7.0-11.0); MONO # 0.3 (0.1-0.6); PLATELET COUNT 302 10^3/uL (120.0-450.0); WHITE BLOOD COUNT 4.3 10^3/ul (4.5-11.0)
--- NOTE | 2016-12-25 09:07 | PN ---
DATE: 12/24/2016 The patient a stable. She is on clear liquids. No vomiting. Still complained of pain, epigastric g oing to her back. No diarrhea. No fever. PHYSICAL EXAMINATION: VITAL SIGNS: On 12/24/2016, temperature 98.8, heart rate 77, blood pressure 168/88, respirations 20, saturation 99%. HEAD AND NECK: Normal. No JVD, no thyromegaly. CHEST: Clear, good air entry. CARDIAC: First sound, second sound normal. ABDOMEN: Soft. There is tenderness epigastric area. EXTREMITIES: No edema. NEUROLOGIC: Normal. LABORATORY STUDIES: On 12/24/2016, sodium 136, potassium 3.5, chloride 108, bicarb 20, BUN 7, creati nine 0.8, blood sugar 120. Liver function test is abnormal, 80 AST, ALT 191, alk phos 229, bilirubin 0.6. IMPRESSION: 1. Acute cholecystitis, common bile duct stones, biliary colic. Continue IV fluid. Continue IV Pro tonix, pain medicine p.r.n. morphine. The patient will go for ERCP. 2. Diabetes. I am going to put the patient on insulin coverage and also we are going to consider a diet change and that recounseled. We will follow up clinically. 3. Hypertension. Increase Cozaar 100 mg, clonidine p.r.n. We will follow up on the blood pressure. 5. Morbid obesity. PLAN: Continue current treatment. Eben Welsh MD cc: 223 TT: 12/25/2016 09:07:04 Confirmation # [id number] Dictation # [id number] en
--- NOTE | 2016-12-25 09:17 | PN ---
DATE: 12/22/2016 The patient is still complaining of pain intermittently. She is going for a CAT scan of the abdomen by Dr. Bui. Otherwise patient is stable. No vomiting and no fever. PHYSICAL EXAMINATION: VITAL SIGNS: Temperature 97.8, heart rate 67, blood pressure is 168/86, respirations 20, saturation 97%. HEAD AND NECK: Normal. No JVD, no thyromegaly. CHEST: Clear, good air entry. CARDIAC: First sound, second sound normal. ABDOMEN: Soft, tender epigastric and right upper quadrant. Bowel sounds intact. EXTREMITIES: No edema. NEUROLOGIC: Normal. LABORATORY DATA: White count 4.5, hemoglobin 11.7, hematocrit 35.9, platelets 294. Chemistry shows sodium 139, potassium 3.8, chloride 108, bicarb 22, BUN 12, creatinine 1, blood sugar is 128, hemoglo bin A1c 7. Liver enzymes: Total bili is 2.1, AST 310, ALT 383, and polo phos 273. IMPRESSION AND PLAN: Gallstones, possible acute cholecystitis, cholestasis on the blood chemistry. The patient has biliar y colic, probably patient has stones in the common bile ducts. Will need further evaluations. Will discuss further with GI. Continue current treatment. Follow up with the consultants: GI, surgery a nd ID consult. The patient currently getting Zosyn IV. Continue Protonix IV. The patient currently on morphine IV also. Hypertension. She is getting clonidine p.r.n. plus Cozaar 50; we may consider increasing to 100 mg. Continue IV fluids. Keep the patient n.p.o. Will follow up. Eben Welsh MD cc: 223 TT: 12/25/2016 09:16:46 Confirmation # [id number] Dictation # [id number] mn
--- NOTE | 2016-12-25 09:26 | PN ---
DATE: 12/23/2016 The patient still complained of intermittent pain that goes to her back. She wants to eat. She is s till on clear liquids. Discussed with the patient, explained the nature of the disease and the proce ss of plan of treatment to the patient. PHYSICAL EXAMINATION: VITAL SIGNS: On 12/23, temperature 97.7, heart rate 76, blood pressure 149/96, respirations 17, satu ration 96%. HEAD AND NECK: Normal. No JVD, no thyromegaly. CHEST: Clear, good air entry. CARDIAC: First sound, second sound normal. ABDOMEN: Soft, tender epigastric and right upper quadrant. EXTREMITIES: No edema. NEUROLOGIC: Normal. LABORATORY STUDIES: On the shows sodium 138, potassium 3.9, chloride 109, bicarb 20, BUN 9, cre atinine 0.9. Liver function test still abnormal. Total bilirubin went down to 1.1, AST 120, ALT 268 and alk phos 229, mild improvement. CT abdomen was done and also MRCP. MRCP shows a small stone in the common bile duct. CT abdomen was unremarkable. The pancreas is normal size without any dilatation and there is mild enlarged uterus. There is gallstones, mild gallbladder distention, mild wall thickening in the fundus of the gallbla dder. No pericholecystic fluid and there is mild dilatation of the common bile duct. IMPRESSION AND PLAN: 1. Biliary colic, acute cholecystitis, common bile duct stone, abnormal liver function tests. We wi ll keep the patient on clear liquid as the gastroenterology. Continue pain meds, morphine. Continue IV fluids, IV Protonix. The patient will need an ERCP. Probably we will do it Sunday or , up to the GI. Will follow up with him. Continue IV antibiotic. 2. Hypertension. Increase Cozaar to 100, clonidine p.r.n. 3. Morbid obesity. The patient will need to follow that as outpatient. Continue current treatment. Follow up clinically. Eben Welsh MD cc: 223 TT: 12/25/2016 09:26:03 Confirmation # [id number] Dictation # [id number] en
--- NOTE | 2016-12-25 09:50 | CP.PCM.PN ---
<Rony Holland - Last Filed: 12/25/16 10:03> Subjective - Date & Time of Evaluation Date of Evaluation: 12/25/16 Time of Evaluation: 06:35 - Subjective Subjective: General Surgery Progress Note for Dr. Mcclain Patient seen and examined at bedside. No acute events overnight. Patient reports her pain is improving. She was made NPO overnight for endoscopy this afternoon. She denies fever, chills, headache, shortness of breath, chest pain, nausea or vomiting. Objective - Vital Signs/Intake and Output Vital Signs (last 24 hours): Temp Pulse Resp BP Pulse Ox 97.7 F 69 19 138/83 95 12/25/16 09:14 12/25/16 09:14 12/25/16 09:14 12/25/16 09:14 12/25/16 09:14 Intake and Output: 12/25/16 12/25/16 06:59 18:59 Intake Total 0 Output Total 0 Balance 0 - Medications Medications: Current Medications Clonidine HCl (Catapres) 0.1 mg PO Q6 PRN PRN Reason: Systolic Blood Pressure Last Admin: 12/24/16 17:12 Dose: 0.1 mg Hydrochlorothiazide (Microzide) 12.5 mg PO DAILY [facility] Piperacillin Sod/Tazobactam Sod (Zosyn 3.375 In Ns 100ml) 100 mls @ 200 mls/hr IVPB Q6 [facility] PRN Reason: Protocol Stop: 12/31/16 00:01 Last Admin: 12/25/16 06:03 Dose: 200 mls/hr Sodium Chloride (Sodium Chloride 0.45%) 1,000 mls @ 40 mls/hr IV .Q24H [facility] Last Admin: 12/24/16 20:10 Dose: 40 mls/hr Insulin Human Regular (Humulin R Low) 0 units SC ACHS [facility] PRN Reason: Protocol Losartan Potassium (Cozaar) 100 mg PO DAILY [facility] Last Admin: 12/24/16 09:53 Dose: 100 mg Morphine Sulfate (Morphine) 4 mg IVP Q4H PRN PRN Reason: Pain, moderate (4-7) Last Admin: 12/24/16 23:08 Dose: 4 mg Ondansetron HCl (Zofran Inj) 4 mg IVP Q6H PRN PRN Reason: Nausea/Vomiting Last Admin: 12/24/16 23:20 Dose: 4 mg Pantoprazole Sodium (Protonix Inj) 40 mg IVP DAILY [facility] Last Admin: 12/24/16 09:53 Dose: 40 mg - Labs Labs: 12/25/16 08:00 12/25/16 08:00 PT 10.3 Seconds (9.9-11.8) 12/25/16 08:00 INR 0.95 (0.93-1.08) 12/25/16 08:00 APTT 25.4 Seconds (23.7-30.8) 12/25/16 08:00 - Constitutional Appears: Well, Non-toxic, No Acute Distress - Head Exam Head Exam: ATRAUMATIC, NORMAL INSPECTION - Eye Exam Eye Exam: EOMI, Normal appearance - ENT Exam ENT Exam: Mucous Membranes Moist - Respiratory Exam Respiratory Exam: NORMAL BREATHING PATTERN. absent: Respiratory Distress - Cardiovascular Exam Cardiovascular Exam: +S1, +S2 - GI/Abdominal Exam GI & Abdominal Exam: Soft, Tenderness (RUQ) - Extremities Exam Extremities Exam: absent: Joint Swelling, Pedal Edema - Neurological Exam Neurological Exam: Alert, Awake, Oriented x3 - Psychiatric Exam Psychiatric exam: Normal Affect, Normal Mood - Skin Skin Exam: Normal Color, Warm Assessment and Plan - Assessment and Plan (Free Text) Assessment: 51 year old female with past medical history of HTN, HLD presents with abdominal pain and transaminitis Plan: -Pending endoscopy results -Abd US showed sludge in the gallbladder, wall thickening, trace pericholecystic edema, negative sanchez's, possible polyp -MRCP showed 2-3mm non obstruction stone with 9mm stone in GB -Continue to monitor LFT -No surgical plan until after GI evaluation -Will d/w attending Dr. Mcclain <Hector Mcclain - Last Filed: 01/22/17 00:13> Objective - Vital Signs/Intake and Output Vital Signs (last 24 hours): Temp Pulse Resp BP Pulse Ox 98.5 F 83 20 122/72 93 L 12/28/16 08:16 12/28/16 08:16 12/28/16 08:16 12/27/16 16:00 12/28/16 08:16 - Labs Labs: 12/28/16 07:30 12/28/16 07:30 PT 10.3 Seconds (9.9-11.8) 12/25/16 08:00 INR 0.95 (0.93-1.08) 12/25/16 08:00 APTT 25.4 Seconds (23.7-30.8) 12/25/16 08:00 Assessment and Plan - Assessment and Plan (Free Text) Plan: Patient was seen and examined by me. I agree with assessment and plan as per resident's note.
[2016-12-25] MEDS: Morphine 4 mg/ml ISec IVP PRN ×2 (10:45→20:18)
[2016-12-25] MEDS: Insulin Reg-LOW-Coverage SC SCH ×3 (12:45→23:27)
--- NOTE | 2016-12-25 14:34 | PN ---
DATE: 12/25/2016 Seen and examined at the bedside earlier today. No acute overnight events reported. The patient is supposed to be n.p.o. after clear liquid breakfast for ERCP today. The patient was given a bowl of f anderson. VITAL SIGNS: Temperature is 97.9, blood pressure 138/83, pulse 69, respirations 19, 95% on room air. LABORATORIES: WBC 4.3, H and H is 10.7 and 32.8, platelets is 302. PT 10.3, INR is 0.95, PTT 25.4. Sodium 144, K 3.8, BUN is 4, creatinine is 0.8. Total bilirubin is 0.6, direct bili 0.5, AST 226, A LT is 263 and alk phos is 268. PHYSICAL EXAMINATION: HEENT: Sclera is anicteric. NECK: Supple. CARDIAC: S1, S2. LUNG SOUNDS: With decreased breath sounds at the bases, but no rales or wheeze. ABDOMEN: With bowel sounds, softly obese with some mild tenderness in epigastric area. No rebound, guarding, or organomegaly. ASSESSMENT: A 51-year-old, morbidly obese patient, came with abdominal pain, has acute cholecystitis , common bile duct stones, diabetes, hypertension. PLAN: Was for patient to have ERCP done today, but patient was given a bowl of farina, which she ate . The procedure is canceled. We will reschedule for tomorrow, n.p.o. after midnight. Resume clear liquid diet. Spoke to the nursing staff. She does have elevated liver enzymes, likely secondary to gallstones. Continue PPI. She is getting IV antibiotics. She is on morphine for pain, Zofran p.r.n . and IV fluids for hydration. The patient was seen and case discussed with Dr. Bui. Nicolle MCKEON cc: [phone] TT: 12/25/2016 14:33:25 Confirmation # [id number] Dictation # [id number] en
--- NOTE | 2016-12-25 15:50 | NM ---
PROCEDURE: Nuclear Medicine Hepatobiliary Scan HISTORY: stones COMPARISON: None available. TECHNIQUE: 6.2 mCi of technetium 99m Mebrofenin was administered intravenously. Planar images of the abdomen were obtained at 5 min intervals to 60 mins. Delayed images were also obtained. FINDINGS: LIVER: Timely and homogenous uptake. COMMON BILE DUCT: identified at 15 mins. GALLBLADDER: identified at 60 mins. SMALL BOWEL: Identified at 30 mins. IMPRESSION: Normal Hepatobiliary Scan. The cystic duct is patent.
--- NOTE | 2016-12-25 17:06 | PN ---
DATE: 12/25/2016 The patient is in bed, in no acute distress, was seen early this morning, had still some pain. PHYSICAL EXAMINATION: VITAL SIGNS: Temperature is 98, blood pressure is 130/80, respiratory rate of 18, heart rate of 65. HEENT: Unremarkable. NECK: Supple. LUNGS: Have decreased breath sounds. HEART: Normal S1, S2. ABDOMEN: There is mild tenderness. No rebound or guarding. LABORATORY EXAMINATION: Reveals the patient's white count is 4.3. Chemistries are noted. LFTs have increased. Urinalysis is reviewed. HIV and hepatitis profile is negative. Microbiology reveals bl ood and urine cultures are negative. Review of orders revealed the patient to be on Zosyn. The patient had a HIDA scan today, which shows normal hepatobiliary scan. The cystic duct is patent. Miss Nicolle Meza' note is reviewed. ___ __ note is also reviewed. ASSESSMENT AND PLAN: A 51-year-old female with morbid obesity, body mass index of 55, high cholester ol, hypertension. Admitted with acute cholecystitis and currently on Zosyn. Awaiting for GI and ron gical evaluation. Tolerating the Zosyn. Negative HIDA scan. Alexis Rios MD cc: 350 TT: 12/25/2016 17:05:28 Confirmation # [id number] Dictation # [id number] en
[2016-12-26] MEDS: Piperacillin/Tazobact 3.375 gm 100 ML IVPB SCH ×4 (00:10→18:48)
--- NOTE | 2016-12-26 01:08 | PN ---
DATE: 12/24/2016 SUBJECTIVE: This patient was seen and evaluated earlier. This is a delayed dictation. The patient was feeling much better. He is much better, but still complains of some discomfort, the tenderness i n the right upper quadrant area and epigastric. PHYSICAL EXAMINATION: VITAL SIGNS: Stable, afebrile. HEENT: Atraumatic, anicteric. NECK: Supple. HEART: S1, S2 heard. LUNGS: Bilateral air entry present. ABDOMEN: Soft. There is some mild tenderness present in the epigastric and right upper quadrant are a. No rebound or guarding. LABORATORY DATA: Reviewed. LFTs showing downward trend. IMPRESSION: The MRCP revealed a small stone in the distal common bile duct area. LFTs are still jaclyn wing increased level; though, it shows a downward trend. The patient is scheduled for an ERCP in a.m . Thank you very much for allowing us to participate in the care of the patient. Meryl Bui MD cc: [phone] TT: 12/26/2016 01:07:24 Confirmation # [id number] Dictation # [id number] mn
[2016-12-26] MEDS: Morphine 4 mg/ml ISec IVP PRN ×2 (01:59→18:58)
--- NOTE | 2016-12-26 06:56 | PN ---
DATE: 12/25/2016 ADDENDUM This is an addendum to the GI progress report dictated by MARTELL Peterson. The patient was seen and evaluated earlier. The patient's procedure was canceled as the patient did a full liquid diet. The patient is rescheduled for an ERCP in the a.m. Meryl Bui MD cc: [phone] TT: 12/26/2016 06:55:37 Confirmation # [id number] Dictation # [id number] tn
[2016-12-26] MEDS: Insulin Reg-LOW-Coverage SC SCH ×4 (08:41→22:48)
--- NOTE | 2016-12-26 08:42 | CP.PCM.PN ---
<Rony Holland - Last Filed: 12/26/16 08:17> Subjective - Date & Time of Evaluation Date of Evaluation: 12/26/16 Time of Evaluation: 07:00 - Subjective Subjective: General Surgery Progress Note for Dr. Mcclain Patient seen and examined at bedside. No acute events overnight. Patient's pain is managed well with morphine. Patient did not get ERCP done yesterday because patient ate something on her own in the afternoon. Patient was once again place on NPO after midnight. She reports to have abdominal pain after eating. Denies having fever, chills, headache, shortness of breath, chest pain, nausea or vomiting. Objective - Vital Signs/Intake and Output Vital Signs (last 24 hours): Temp Pulse Resp BP Pulse Ox 97.8 F 76 20 169/93 H 98 12/25/16 16:00 12/25/16 16:00 12/25/16 16:00 12/25/16 16:00 12/25/16 16:00 Intake and Output: 12/26/16 12/26/16 06:59 18:59 Intake Total 1200 0 Balance 1200 0 - Medications Medications: Current Medications Clonidine HCl (Catapres) 0.1 mg PO Q6 PRN PRN Reason: Systolic Blood Pressure Last Admin: 12/24/16 17:12 Dose: 0.1 mg Hydrochlorothiazide (Microzide) 12.5 mg PO DAILY [facility] Last Admin: 12/25/16 10:32 Dose: 12.5 mg Piperacillin Sod/Tazobactam Sod (Zosyn 3.375 In Ns 100ml) 100 mls @ 200 mls/hr IVPB Q6 [facility] PRN Reason: Protocol Stop: 12/31/16 00:01 Last Admin: 12/26/16 06:02 Dose: 200 mls/hr Sodium Chloride (Sodium Chloride 0.45%) 1,000 mls @ 40 mls/hr IV .Q24H [facility] Last Admin: 12/24/16 20:10 Dose: 40 mls/hr Insulin Human Regular (Humulin R Low) 0 units SC ACHS [facility] PRN Reason: Protocol Last Admin: 12/25/16 23:27 Dose: Not Given Losartan Potassium (Cozaar) 100 mg PO DAILY [facility] Last Admin: 12/25/16 10:32 Dose: 100 mg Morphine Sulfate (Morphine) 4 mg IVP Q4H PRN PRN Reason: Pain, moderate (4-7) Last Admin: 12/26/16 01:59 Dose: 4 mg Ondansetron HCl (Zofran Inj) 4 mg IVP Q6H PRN PRN Reason: Nausea/Vomiting Last Admin: 12/24/16 23:20 Dose: 4 mg Pantoprazole Sodium (Protonix Inj) 40 mg IVP DAILY [facility] Last Admin: 12/25/16 10:32 Dose: 40 mg - Labs Labs: 12/25/16 08:00 12/25/16 08:00 PT 10.3 Seconds (9.9-11.8) 12/25/16 08:00 INR 0.95 (0.93-1.08) 12/25/16 08:00 APTT 25.4 Seconds (23.7-30.8) 12/25/16 08:00 - Constitutional Appears: Non-toxic, No Acute Distress - Head Exam Head Exam: ATRAUMATIC, NORMAL INSPECTION - Respiratory Exam Respiratory Exam: absent: Respiratory Distress - Cardiovascular Exam Cardiovascular Exam: +S1, +S2 - GI/Abdominal Exam GI & Abdominal Exam: Soft, Tenderness - Neurological Exam Neurological Exam: Alert, Awake, Oriented x3 - Psychiatric Exam Psychiatric exam: Normal Affect, Normal Mood - Skin Skin Exam: Normal Color, Warm Assessment and Plan - Assessment and Plan (Free Text) Assessment: 51 year old female with past medical history of HTN, HLD presents with abdominal pain and transaminitis Plan: -ERCP today -Abd US showed sludge in the gallbladder, wall thickening, trace pericholecystic edema, negative sanchez's, possible polyp -MRCP showed 2-3mm non obstruction stone with 9mm stone in GB -Continue to monitor LFT -Medical management per primary team -No surgical plan until after GI evaluation -Will d/w attending Dr. Mcclain <Hector Mcclain - Last Filed: 01/22/17 00:14> Objective - Vital Signs/Intake and Output Vital Signs (last 24 hours): Temp Pulse Resp BP Pulse Ox 98.5 F 83 20 122/72 93 L 12/28/16 08:16 12/28/16 08:16 12/28/16 08:16 12/27/16 16:00 12/28/16 08:16 - Labs Labs: 12/28/16 07:30 12/28/16 07:30 PT 10.3 Seconds (9.9-11.8) 12/25/16 08:00 INR 0.95 (0.93-1.08) 12/25/16 08:00 APTT 25.4 Seconds (23.7-30.8) 12/25/16 08:00 Assessment and Plan - Assessment and Plan (Free Text) Plan: Patient was seen and examined by me. I agree with assessment and plan as per resident's note.
[2016-12-26] MEDS ORDERED: Iohexol 240 (50 ml) ONE ×2 (09:08→14:19)
[2016-12-26] MEDS ORDERED: Indomethacin 50 MG Suppository PR ONE (13:41)
[2016-12-26] MEDS ORDERED: Succinylcholine 200 mg/10 ml Inj IV ONE (14:24)
[2016-12-26] MEDS ORDERED: Midazolam 2 MG/2 ML VIAL ONE (14:24)
[2016-12-26] MEDS ORDERED: Propofol 10 mg/ml Inj (20 ML) ONE (14:24)
[2016-12-26] MEDS ORDERED: Sodium Chloride 0.9% 1,000 ML IV SCH (16:45)
--- NOTE | 2016-12-26 22:32 | CP.PCM.PN ---
Subjective - Date & Time of Evaluation Date of Evaluation: 12/26/16 Time of Evaluation: 22:31 - Subjective Subjective: 51 year old female with past medical history of HTN, HLD presents with abdominal pain and transaminitis Plan: -ERCP today -Abd US showed sludge in the gallbladder, wall thickening, trace pericholecystic edema, negative sanchez's, possible polyp -MRCP showed 2-3mm non obstruction stone with 9mm stone in GB Objective - Vital Signs/Intake and Output Vital Signs (last 24 hours): Temp Pulse Resp BP Pulse Ox 98 F 73 14 180/90 H 95 12/26/16 17:43 12/26/16 17:43 12/26/16 17:43 12/26/16 17:43 12/26/16 17:43 Intake and Output: 12/26/16 12/27/16 18:59 06:59 Intake Total 0 560 Balance 0 560 - Medications Medications: Current Medications Clonidine HCl (Catapres) 0.1 mg PO Q6 PRN PRN Reason: Systolic Blood Pressure Last Admin: 12/24/16 17:12 Dose: 0.1 mg Hydrochlorothiazide (Microzide) 12.5 mg PO DAILY [facility] Last Admin: 12/26/16 09:47 Dose: 12.5 mg Piperacillin Sod/Tazobactam Sod (Zosyn 3.375 In Ns 100ml) 100 mls @ 200 mls/hr IVPB Q6 [facility] PRN Reason: Protocol Stop: 12/31/16 00:01 Last Admin: 12/26/16 18:48 Dose: 200 mls/hr Sodium Chloride (Sodium Chloride 0.45%) 1,000 mls @ 40 mls/hr IV .Q24H [facility] Last Admin: 12/24/16 20:10 Dose: 40 mls/hr Sodium Chloride (Sodium Chloride 0.9%) 1,000 mls @ 100 mls/hr IV .Q10H [facility] Insulin Human Regular (Humulin R Low) 0 units SC ACHS [facility] PRN Reason: Protocol Last Admin: 12/26/16 18:32 Dose: Not Given Losartan Potassium (Cozaar) 100 mg PO DAILY [facility] Last Admin: 12/26/16 09:48 Dose: 100 mg Morphine Sulfate (Morphine) 4 mg IVP Q4H PRN PRN Reason: Pain, moderate (4-7) Last Admin: 12/26/16 18:58 Dose: 4 mg Ondansetron HCl (Zofran Inj) 4 mg IVP Q6H PRN PRN Reason: Nausea/Vomiting Last Admin: 12/26/16 17:03 Dose: 4 mg Pantoprazole Sodium (Protonix Inj) 40 mg IVP DAILY [facility] Last Admin: 12/26/16 09:47 Dose: 40 mg - Labs Labs: 12/25/16 08:00 12/25/16 08:00 PT 10.3 Seconds (9.9-11.8) 12/25/16 08:00 INR 0.95 (0.93-1.08) 12/25/16 08:00 APTT 25.4 Seconds (23.7-30.8) 12/25/16 08:00 - Constitutional Appears: Well, No Acute Distress - Head Exam Head Exam: ATRAUMATIC, NORMAL INSPECTION, NORMOCEPHALIC - Eye Exam Eye Exam: EOMI, Normal appearance, PERRL Pupil Exam: NORMAL ACCOMODATION, PERRL - ENT Exam ENT Exam: Mucous Membranes Moist, Normal Exam - Neck Exam Neck Exam: Full ROM, Normal Inspection. absent: Lymphadenopathy - Respiratory Exam Respiratory Exam: Clear to Ausculation Bilateral, NORMAL BREATHING PATTERN - Cardiovascular Exam Cardiovascular Exam: REGULAR RHYTHM, +S1, +S2. absent: Murmur - GI/Abdominal Exam GI & Abdominal Exam: Guarding, Tenderness - Extremities Exam Extremities Exam: Full ROM, Normal Capillary Refill, Normal Inspection. absent : Joint Swelling, Pedal Edema Assessment and Plan (1) Obesity Status: Acute (2) Acute cholecystitis Status: Acute (3) Nasal congestion with rhinorrhea Status: Acute (4) Sciatica Status: Acute - Assessment and Plan (Free Text) Plan: seen by Gi, ERCP today, surgical follow up , anti biotic, SCD lower ext.
[2016-12-26] MEDS: Sodium Chloride 0.45% 1,000 ML IV SCH (23:30)
--- NOTE | 2016-12-26 23:48 | CP.PCM.PN ---
Subjective - Date & Time of Evaluation Date of Evaluation: 12/26/16 Time of Evaluation: 07:00 - Subjective Subjective: DOING BETTER Objective - Vital Signs/Intake and Output Vital Signs (last 24 hours): Temp Pulse Resp BP Pulse Ox 98 F 73 14 170/90 H 95 12/26/16 17:43 12/26/16 17:43 12/26/16 17:43 12/26/16 22:55 12/26/16 17:43 Intake and Output: 12/26/16 12/27/16 18:59 06:59 Intake Total 0 560 Balance 0 560 - Medications Medications: Current Medications Clonidine HCl (Catapres) 0.1 mg PO Q6 PRN PRN Reason: Systolic Blood Pressure Last Admin: 12/26/16 22:55 Dose: 0.1 mg Hydrochlorothiazide (Microzide) 12.5 mg PO DAILY [facility] Last Admin: 12/26/16 09:47 Dose: 12.5 mg Piperacillin Sod/Tazobactam Sod (Zosyn 3.375 In Ns 100ml) 100 mls @ 200 mls/hr IVPB Q6 [facility] PRN Reason: Protocol Stop: 12/31/16 00:01 Last Admin: 12/26/16 18:48 Dose: 200 mls/hr Sodium Chloride (Sodium Chloride 0.45%) 1,000 mls @ 100 mls/hr IV .Q10H [facility] Insulin Human Regular (Humulin R Low) 0 units SC ACHS [facility] PRN Reason: Protocol Last Admin: 12/26/16 22:48 Dose: Not Given Losartan Potassium (Cozaar) 100 mg PO DAILY [facility] Last Admin: 12/26/16 09:48 Dose: 100 mg Morphine Sulfate (Morphine) 4 mg IVP Q4H PRN PRN Reason: Pain, moderate (4-7) Last Admin: 12/26/16 18:58 Dose: 4 mg Ondansetron HCl (Zofran Inj) 4 mg IVP Q6H PRN PRN Reason: Nausea/Vomiting Last Admin: 12/26/16 17:03 Dose: 4 mg Pantoprazole Sodium (Protonix Inj) 40 mg IVP DAILY [facility] Last Admin: 12/26/16 09:47 Dose: 40 mg - Labs Labs: 12/25/16 08:00 12/25/16 08:00 PT 10.3 Seconds (9.9-11.8) 12/25/16 08:00 INR 0.95 (0.93-1.08) 12/25/16 08:00 APTT 25.4 Seconds (23.7-30.8) 12/25/16 08:00 - Constitutional Appears: Well - Head Exam Head Exam: ATRAUMATIC, NORMAL INSPECTION, NORMOCEPHALIC - Eye Exam Eye Exam: EOMI, Normal appearance, PERRL Pupil Exam: NORMAL ACCOMODATION, PERRL - ENT Exam ENT Exam: Mucous Membranes Moist, Normal Exam - Neck Exam Neck Exam: Full ROM, Normal Inspection. absent: Lymphadenopathy - Respiratory Exam Respiratory Exam: Clear to Ausculation Bilateral, NORMAL BREATHING PATTERN - Cardiovascular Exam Cardiovascular Exam: REGULAR RHYTHM, +S1, +S2. absent: Murmur - GI/Abdominal Exam GI & Abdominal Exam: Soft, Normal Bowel Sounds. absent: Tenderness - Rectal Exam Rectal Exam: NORMAL INSPECTION - Exam Exam: Circumcision, NORMAL INSPECTION External exam: NORMAL EXTERNAL EXAM Speculum exam: NORMAL SPECULUM EXAM Bimanual exam: NORMAL BIMANUAL EXAM - Extremities Exam Extremities Exam: Full ROM, Normal Capillary Refill, Normal Inspection. absent : Joint Swelling, Pedal Edema - Back Exam Back Exam: NORMAL INSPECTION - Neurological Exam Neurological Exam: Alert, Awake, CN II-XII Intact, Normal Gait, Oriented x3 - Psychiatric Exam Psychiatric exam: Normal Affect, Normal Mood - Skin Skin Exam: Dry, Intact, Normal Color, Warm Assessment and Plan (1) Acute cholecystitis Status: Acute - Assessment and Plan (Free Text) Assessment: ACUTE CHOLY Plan: PRESENT ABX
[2016-12-27] MEDS: Sodium Chloride 0.45% 1,000 ML IV SCH ×2 (01:05→20:47)
[2016-12-27] MEDS: Piperacillin/Tazobact 3.375 gm 100 ML IVPB SCH ×2 (01:05→06:19)
[2016-12-27 08:21] LABS: ADD MANUAL DIFF? NO
[2016-12-27 08:23] LABS: BASO # 0.02 K/mm3 (0.0-2.0); BASO % 0.4 % (0.0-3.0); EOS # 0.1 (0.0-0.7); EOS % 2.1 % (1.5-5.0); GRAN # 3.35 (1.4-6.5); GRAN % 64.1 % (50.0-68.0); LYMPH # 1.4 (1.2-3.4); LYMPH % 27.3 % (22.0-35.0); MEAN CELL VOLUME 85.5 fL (80.0-105.0); MEAN CORPUSCULAR HEMOGLOBIN 27.3 pg (25.0-35.0); MEAN CORPUSCULAR HGB CONC 31.9 g/dl (31.0-37.0); MEAN PLATELET VOLUME 10.6 fl (7.0-11.0); MONO # 0.3 (0.1-0.6); MONO % 6.1 % (1.0-6.0); PLATELET COUNT 328 10^3/uL (120.0-450.0); RED CELL DISTRIBUTION WIDTH 16.3 % (11.5-14.5); WHITE BLOOD COUNT 5.2 10^3/ul (4.5-11.0)
[2016-12-27 08:47] LABS: ALKALINE PHOSPHATASE 311 U/L (38-133); ALT/SGPT 229 U/L (7-56); AMYLASE 99 U/L (35-125); AST/SGOT 111 U/L (15-39); BILIRUBIN,TOTAL 0.8 mg/dL (0.2-1.3); BLOOD UREA NITROGEN 11 mg/dL (7-21); CARBON DIOXIDE 19 mmol/L (21-33); CHLORIDE 106 mmol/L (98-107); GFR AFRICAN-AMERICAN > 60; GLUCOSE,RANDOM 112 mg/dL (70-110); LIPASE 139 U/L (23-300); POTASSIUM 3.8 mmol/L (3.6-5.0); SODIUM 138 mmol/L (132-148); TOTAL PROTEIN 7.3 g/dL (5.8-8.3)
[2016-12-27] MEDS: Insulin Reg-LOW-Coverage SC SCH ×4 (09:10→21:08)
[2016-12-27] MEDS ORDERED: Iohexol 240 (50 ml) ONE (09:12)
[2016-12-27] MEDS ORDERED: Bupivacaine 0.5% Inj(30mL) ONE (09:12)
[2016-12-27] MEDS ORDERED: Propofol 10 mg/ml Inj (20 ML) ONE (09:13)
[2016-12-27] MEDS ORDERED: Midazolam 2 MG/2 ML VIAL ONE (09:14)
[2016-12-27] MEDS ORDERED: Succinylcholine 200 mg/10 ml Inj IV ONE (09:14)
[2016-12-27] MEDS ORDERED: Bupivacaine 0.5% Inj(30mL) IJ ONE (09:34)
[2016-12-27] MEDS ORDERED: ePHEDrine 50 mg/ml Inj ONE (09:38)
[2016-12-27] MEDS ORDERED: Neostigmine Methylsulfate 3mg/3ml Syringe IV ONE (10:37)
--- NOTE | 2016-12-27 11:01 | PCM.SURG1 ---
Surgeon's Initial Post Op Note - Surgeon's Notes Surgeon: Dr. Mcclain Line Operator: Dr. Chin Type of Anesthesia: General Endo, Local Pre-Operative Diagnosis: acute cholecystitis Operative Findings: see op report Post-Operative Diagnosis: same Operation Performed: laparoscopic cholecystectomy, lysis of adhesions Specimen/Specimens Removed: gallbladder Estimated Blood Loss: EBL {In ML}: 20 Post-Op Condition: Good Date of Surgery/Procedure: 12/27/16 Time of Surgery/Procedure: 11:00
[2016-12-27] MEDS ORDERED: HYDROmorphone 0.5 mg/0.5 ml ISec ONE ×2 (11:19→11:48)
[2016-12-27] MEDS ORDERED: HYDROmorphone 0.5 mg/0.5 ml ISec IVP PRN (11:22)
[2016-12-27] MEDS ORDERED: Lactated Ringer's 1,000 ML IV SCH (11:22)
[2016-12-27] MEDS ORDERED: Metoprolol 1 mg/ml Inj IVP ONE ×2 (11:31→11:35)
--- NOTE | 2016-12-27 12:01 | CP.PCM.PN ---
Subjective - Date & Time of Evaluation Date of Evaluation: 12/27/16 Time of Evaluation: 08:20 - Subjective Subjective: S&E earlier today. Chart reviewed. S/P ERCP yesterday ahd sphincterotomy with CBD stone removal. NPO for OR this am. NO acute overnight events or complaints. No fever or chills or bleeding. Objective - Vital Signs/Intake and Output Vital Signs (last 24 hours): Temp Pulse Resp BP Pulse Ox 98.5 F 68 18 186/88 H 100 12/27/16 11:42 12/27/16 11:42 12/27/16 11:42 12/27/16 11:42 12/27/16 11:42 Intake and Output: 12/27/16 12/27/16 06:59 18:59 Intake Total 560 0 Balance 560 0 - Medications Medications: Current Medications Clonidine HCl (Catapres) 0.1 mg PO Q6 PRN PRN Reason: Systolic Blood Pressure Last Admin: 12/26/16 22:55 Dose: 0.1 mg Hydrochlorothiazide (Microzide) 12.5 mg PO DAILY [facility] Last Admin: 12/26/16 09:47 Dose: 12.5 mg Hydromorphone HCl (Dilaudid) 0.5 mg IVP Q15M PRN PRN Reason: Pain, moderate (4-7) Stop: 12/27/16 13:22 Last Admin: 12/27/16 11:20 Dose: 0.5 mg Piperacillin Sod/Tazobactam Sod (Zosyn 3.375 In Ns 100ml) 100 mls @ 200 mls/hr IVPB Q6 [facility] PRN Reason: Protocol Stop: 12/31/16 00:01 Last Admin: 12/27/16 06:19 Dose: 200 mls/hr Sodium Chloride (Sodium Chloride 0.45%) 1,000 mls @ 100 mls/hr IV .Q10H [facility] Last Admin: 12/27/16 01:05 Dose: 100 mls/hr Lactated Ringer's (Lactated Ringer's) 1,000 mls @ 75 mls/hr IV .[id number] [facility] Stop: 12/27/16 13:23 Insulin Human Regular (Humulin R Low) 0 units SC ACHS [facility] PRN Reason: Protocol Last Admin: 12/27/16 09:10 Dose: Not Given Losartan Potassium (Cozaar) 100 mg PO DAILY [facility] Last Admin: 12/26/16 09:48 Dose: 100 mg Meperidine HCl (Demerol) 25 mg IVP Q10M PRN PRN Reason: shivering Stop: 12/27/16 12:23 Metoclopramide HCl (Reglan) 10 mg IV ONCE PRN PRN Reason: Nausea/Vomiting Morphine Sulfate (Morphine) 4 mg IVP Q4H PRN PRN Reason: Pain, severe (8-10) Ondansetron HCl (Zofran Inj) 4 mg IVP Q6H PRN PRN Reason: Nausea/Vomiting Last Admin: 12/26/16 17:03 Dose: 4 mg Pantoprazole Sodium (Protonix Inj) 40 mg IVP DAILY [facility] Last Admin: 12/26/16 09:47 Dose: 40 mg Tramadol HCl (Ultram) 50 mg PO Q6 PRN PRN Reason: Pain, moderate (4-7) - Labs Labs: 12/27/16 08:00 12/27/16 08:00 PT 10.3 Seconds (9.9-11.8) 12/25/16 08:00 INR 0.95 (0.93-1.08) 12/25/16 08:00 APTT 25.4 Seconds (23.7-30.8) 12/25/16 08:00 - Constitutional Appears: No Acute Distress - Head Exam Head Exam: NORMAL INSPECTION - Eye Exam Eye Exam: Normal appearance. absent: Scleral icterus - ENT Exam ENT Exam: Mucous Membranes Moist - Neck Exam Neck Exam: Normal Inspection - Respiratory Exam Respiratory Exam: Clear to Ausculation Bilateral, NORMAL BREATHING PATTERN. absent: Respiratory Distress - Cardiovascular Exam Cardiovascular Exam: +S1, +S2 - GI/Abdominal Exam GI & Abdominal Exam: Soft, Normal Bowel Sounds. absent: Guarding, Tenderness, Organomegaly, Rebound - Extremities Exam Extremities Exam: absent: Calf Tenderness, Pedal Edema - Neurological Exam Neurological Exam: Alert, Awake, Oriented x3 Assessment and Plan - Assessment and Plan (Free Text) Assessment: ASSESSMENT: Abdominal Pain secondary to acute cholecystitis s/p ERCP for CBD stone removal Elevated LFT, improving Morbid Obese DM HTN PLAN: IV antitbiotics NPO or OR today IVF trend LFT PPI paing mgt pt OOB Seen and case discussed with Dr. Bui.
--- NOTE | 2016-12-27 14:36 | CP.PCM.PN ---
Subjective - Date & Time of Evaluation Date of Evaluation: 12/27/16 Time of Evaluation: 13:00 - Subjective Subjective: 51 year old female with past medical history of HTN, HLD presents with abdominal pain and transaminitis Plan: -ERCP yesterday -Abd US showed sludge in the gallbladder, wall thickening, trace pericholecystic edema, negative sanchez's, possible polyp -MRCP showed 2-3mm non obstruction stone with 9mm stone in G s/p [id number] year old female with past medical history of HTN, HLD presents with abdominal pain and transaminitis Plan: -ERCP yesterday -Abd US showed sludge in the gallbladder, wall thickening, trace pericholecystic edema, negative sanchez's, possible polyp -MRCP showed 2-3mm non obstruction stone with 9mm stone in Gomy S/P cholecyctectomy, abdominal pain Objective - Vital Signs/Intake and Output Vital Signs (last 24 hours): Temp Pulse Resp BP Pulse Ox 98.5 F 66 17 180/89 H 100 12/27/16 11:57 12/27/16 11:57 12/27/16 11:57 12/27/16 11:57 12/27/16 11:57 Intake and Output: 12/27/16 12/27/16 06:59 18:59 Intake Total 560 0 Balance 560 0 - Medications Medications: Current Medications Clonidine HCl (Catapres) 0.1 mg PO Q6 PRN PRN Reason: Systolic Blood Pressure Last Admin: 12/26/16 22:55 Dose: 0.1 mg Hydrochlorothiazide (Microzide) 12.5 mg PO DAILY [facility] Last Admin: 12/26/16 09:47 Dose: 12.5 mg Piperacillin Sod/Tazobactam Sod (Zosyn 3.375 In Ns 100ml) 100 mls @ 200 mls/hr IVPB Q6 [facility] PRN Reason: Protocol Stop: 12/31/16 00:01 Last Admin: 12/27/16 06:19 Dose: 200 mls/hr Sodium Chloride (Sodium Chloride 0.45%) 1,000 mls @ 100 mls/hr IV .Q10H [facility] Last Admin: 12/27/16 01:05 Dose: 100 mls/hr Insulin Human Regular (Humulin R Low) 0 units SC ACHS [facility] PRN Reason: Protocol Last Admin: 12/27/16 09:10 Dose: Not Given Losartan Potassium (Cozaar) 100 mg PO DAILY [facility] Last Admin: 12/26/16 09:48 Dose: 100 mg Metoclopramide HCl (Reglan) 10 mg IV ONCE PRN PRN Reason: Nausea/Vomiting Morphine Sulfate (Morphine) 4 mg IVP Q4H PRN PRN Reason: Pain, severe (8-10) Ondansetron HCl (Zofran Inj) 4 mg IVP Q6H PRN PRN Reason: Nausea/Vomiting Last Admin: 12/26/16 17:03 Dose: 4 mg Pantoprazole Sodium (Protonix Inj) 40 mg IVP DAILY [facility] Last Admin: 12/26/16 09:47 Dose: 40 mg Tramadol HCl (Ultram) 50 mg PO Q6 PRN PRN Reason: Pain, moderate (4-7) Last Admin: 12/27/16 13:02 Dose: 50 mg - Labs Labs: 12/27/16 08:00 12/27/16 08:00 PT 10.3 Seconds (9.9-11.8) 12/25/16 08:00 INR 0.95 (0.93-1.08) 12/25/16 08:00 APTT 25.4 Seconds (23.7-30.8) 12/25/16 08:00 - Constitutional Appears: Well - Head Exam Head Exam: ATRAUMATIC, NORMAL INSPECTION, NORMOCEPHALIC - Eye Exam Eye Exam: EOMI, Normal appearance, PERRL Pupil Exam: NORMAL ACCOMODATION, PERRL - ENT Exam ENT Exam: Mucous Membranes Moist, Normal Exam - Neck Exam Neck Exam: Full ROM, Normal Inspection. absent: Lymphadenopathy - Respiratory Exam Respiratory Exam: Clear to Ausculation Bilateral, NORMAL BREATHING PATTERN - Cardiovascular Exam Cardiovascular Exam: REGULAR RHYTHM, +S1, +S2. absent: Murmur - GI/Abdominal Exam GI & Abdominal Exam: Guarding, Tenderness, Hypoactive Bowel Sounds - Extremities Exam Extremities Exam: Full ROM, Normal Capillary Refill, Normal Inspection. absent : Joint Swelling, Pedal Edema - Skin Skin Exam: Dry, Intact, Normal Color, Warm Assessment and Plan (1) Obesity Status: Acute (2) Acute cholecystitis Assessment & Plan: s/p cholecyctectomy Status: Acute (3) Nasal congestion with rhinorrhea Status: Acute (4) Sciatica Status: Acute (5) Diabetes Assessment & Plan: weight loss, diet controle Status: Acute
[2016-12-27] MEDS: Morphine 4 mg/ml ISec IVP PRN ×2 (14:57→19:46)
[2016-12-27 16:48] VITALS: BP 122/72; RESP 20; O2SAT 93
--- NOTE | 2016-12-27 21:11 | CP.PCM.PN ---
Subjective - Date & Time of Evaluation Date of Evaluation: 12/27/16 Time of Evaluation: 07:00 - Subjective Subjective: DOING BETTER LESS PAIN Objective - Vital Signs/Intake and Output Vital Signs (last 24 hours): Temp Pulse Resp BP Pulse Ox 97.3 F L 93 H 20 122/72 93 L 12/27/16 16:00 12/27/16 16:00 12/27/16 16:00 12/27/16 16:00 12/27/16 16:00 Intake and Output: 12/27/16 12/28/16 18:59 06:59 Intake Total 0 Balance 0 - Medications Medications: Current Medications Clonidine HCl (Catapres) 0.1 mg PO Q6 PRN PRN Reason: Systolic Blood Pressure Last Admin: 12/26/16 22:55 Dose: 0.1 mg Hydrochlorothiazide (Microzide) 12.5 mg PO DAILY [facility] Last Admin: 12/27/16 15:00 Dose: 12.5 mg Piperacillin Sod/Tazobactam Sod (Zosyn 3.375 In Ns 100ml) 100 mls @ 200 mls/hr IVPB Q6 [facility] PRN Reason: Protocol Stop: 12/31/16 00:01 Last Admin: 12/27/16 06:19 Dose: 200 mls/hr Insulin Human Regular (Humulin R Low) 0 units SC ACHS [facility] PRN Reason: Protocol Last Admin: 12/27/16 21:08 Dose: Not Given Losartan Potassium (Cozaar) 100 mg PO DAILY [facility] Last Admin: 12/27/16 15:00 Dose: 100 mg Metoclopramide HCl (Reglan) 10 mg IV ONCE PRN PRN Reason: Nausea/Vomiting Morphine Sulfate (Morphine) 4 mg IVP Q4H PRN PRN Reason: Pain, severe (8-10) Last Admin: 12/27/16 19:46 Dose: 4 mg Ondansetron HCl (Zofran Inj) 4 mg IVP Q6H PRN PRN Reason: Nausea/Vomiting Last Admin: 12/27/16 19:47 Dose: 4 mg Pantoprazole Sodium (Protonix Inj) 40 mg IVP DAILY [facility] Last Admin: 12/27/16 14:58 Dose: 40 mg Tramadol HCl (Ultram) 50 mg PO Q6 PRN PRN Reason: Pain, moderate (4-7) Last Admin: 12/27/16 13:02 Dose: 50 mg - Labs Labs: 12/27/16 08:00 12/27/16 08:00 PT 10.3 Seconds (9.9-11.8) 12/25/16 08:00 INR 0.95 (0.93-1.08) 12/25/16 08:00 APTT 25.4 Seconds (23.7-30.8) 12/25/16 08:00 - Constitutional Appears: Well - Head Exam Head Exam: ATRAUMATIC, NORMAL INSPECTION, NORMOCEPHALIC - Eye Exam Eye Exam: EOMI, Normal appearance, PERRL Pupil Exam: NORMAL ACCOMODATION, PERRL - ENT Exam ENT Exam: Mucous Membranes Moist, Normal Exam - Neck Exam Neck Exam: Full ROM, Normal Inspection. absent: Lymphadenopathy - Respiratory Exam Respiratory Exam: Clear to Ausculation Bilateral, NORMAL BREATHING PATTERN - Cardiovascular Exam Cardiovascular Exam: REGULAR RHYTHM, +S1, +S2. absent: Murmur - GI/Abdominal Exam GI & Abdominal Exam: Soft, Normal Bowel Sounds. absent: Tenderness - Rectal Exam Rectal Exam: NORMAL INSPECTION - Exam Exam: Circumcision, NORMAL INSPECTION External exam: NORMAL EXTERNAL EXAM Speculum exam: NORMAL SPECULUM EXAM Bimanual exam: NORMAL BIMANUAL EXAM - Extremities Exam Extremities Exam: Full ROM, Normal Capillary Refill, Normal Inspection. absent : Joint Swelling, Pedal Edema - Back Exam Back Exam: NORMAL INSPECTION - Neurological Exam Neurological Exam: Alert, Awake, CN II-XII Intact, Normal Gait, Oriented x3 - Psychiatric Exam Psychiatric exam: Normal Affect, Normal Mood - Skin Skin Exam: Dry, Intact, Normal Color, Warm Assessment and Plan (1) Acute cholecystitis Status: Acute - Assessment and Plan (Free Text) Assessment: ACUTE CHOLY Plan: ZOSYN OR TODAY
[2016-12-28 07:34] LABS: ADD MANUAL DIFF? NO
[2016-12-28 07:38] LABS: BASO # 0.03 K/mm3 (0.0-2.0); BASO % 0.5 % (0.0-3.0); EOS # 0.1 (0.0-0.7); EOS % 1.6 % (1.5-5.0); GRAN # 4.27 (1.4-6.5); GRAN % 68.5 % (50.0-68.0); HEMATOCRIT 32.9 % (36.0-48.0); LYMPH # 1.5 (1.2-3.4); LYMPH % 23.6 % (22.0-35.0); MEAN CELL VOLUME 85.9 fL (80.0-105.0); MEAN CORPUSCULAR HEMOGLOBIN 27.4 pg (25.0-35.0); MEAN CORPUSCULAR HGB CONC 31.9 g/dl (31.0-37.0); MEAN PLATELET VOLUME 10.1 fl (7.0-11.0); MONO # 0.4 (0.1-0.6); MONO % 5.8 % (1.0-6.0); PLATELET COUNT 301 10^3/uL (120.0-450.0); RED CELL DISTRIBUTION WIDTH 16.3 % (11.5-14.5); WHITE BLOOD COUNT 6.2 10^3/ul (4.5-11.0)
[2016-12-28 07:51] LABS: ALB/GLOB RATIO 1.1 (1.1-1.8); ALKALINE PHOSPHATASE 248 U/L (38-133); ALT/SGPT 181 U/L (7-56); AST/SGOT 93 U/L (15-39); BILIRUBIN,TOTAL 0.5 mg/dL (0.2-1.3); BLOOD UREA NITROGEN 10 mg/dL (7-21); CALCIUM 8.8 mg/dL (8.4-10.5); CARBON DIOXIDE 26 mmol/L (21-33); CHLORIDE 103 mmol/L (95-110); GFR AFRICAN-AMERICAN > 60; GLUCOSE,RANDOM 127 mg/dL (70-110); LIPASE 66 U/L (23-300); POTASSIUM 3.9 mmol/L (3.6-5.0); SODIUM 137 mmol/L (132-148); TOTAL PROTEIN 6.7 g/dL (5.8-8.3)
--- NOTE | 2016-12-28 08:02 | CP.PCM.PN ---
<Jayy ChinJazmine - Last Filed: 12/28/16 07:58> Subjective - Date & Time of Evaluation Date of Evaluation: 12/28/16 Time of Evaluation: 07:58 - Subjective Subjective: Surgery: Dr. Mcclain Patient doing well. She states pain in mild. She took pain medication yesterday just after the surgery but has not required any since. She is tolerating diet. Denies n/v/f/c. Objective - Vital Signs/Intake and Output Vital Signs (last 24 hours): Temp Pulse Resp BP Pulse Ox 97.3 F L 93 H 20 122/72 93 L 12/27/16 16:00 12/27/16 16:00 12/27/16 16:00 12/27/16 16:00 12/27/16 16:00 Intake and Output: 12/28/16 12/28/16 06:59 18:59 Intake Total 960 Balance 960 - Medications Medications: Current Medications Clonidine HCl (Catapres) 0.1 mg PO Q6 PRN PRN Reason: Systolic Blood Pressure Last Admin: 12/26/16 22:55 Dose: 0.1 mg Hydrochlorothiazide (Microzide) 12.5 mg PO DAILY [facility] Last Admin: 12/27/16 15:00 Dose: 12.5 mg Piperacillin Sod/Tazobactam Sod (Zosyn 3.375 In Ns 100ml) 100 mls @ 200 mls/hr IVPB Q6 [facility] PRN Reason: Protocol Stop: 12/31/16 00:01 Last Admin: 12/27/16 06:19 Dose: 200 mls/hr Insulin Human Regular (Humulin R Low) 0 units SC ACHS [facility] PRN Reason: Protocol Last Admin: 12/27/16 21:08 Dose: Not Given Losartan Potassium (Cozaar) 100 mg PO DAILY [facility] Last Admin: 12/27/16 15:00 Dose: 100 mg Metoclopramide HCl (Reglan) 10 mg IV ONCE PRN PRN Reason: Nausea/Vomiting Morphine Sulfate (Morphine) 4 mg IVP Q4H PRN PRN Reason: Pain, severe (8-10) Last Admin: 12/27/16 19:46 Dose: 4 mg Ondansetron HCl (Zofran Inj) 4 mg IVP Q6H PRN PRN Reason: Nausea/Vomiting Last Admin: 12/27/16 19:47 Dose: 4 mg Pantoprazole Sodium (Protonix Inj) 40 mg IVP DAILY [facility] Last Admin: 12/27/16 14:58 Dose: 40 mg Tramadol HCl (Ultram) 50 mg PO Q6 PRN PRN Reason: Pain, moderate (4-7) Last Admin: 12/27/16 13:02 Dose: 50 mg - Labs Labs: 12/28/16 07:30 12/28/16 07:30 PT 10.3 Seconds (9.9-11.8) 12/25/16 08:00 INR 0.95 (0.93-1.08) 12/25/16 08:00 APTT 25.4 Seconds (23.7-30.8) 12/25/16 08:00 - Constitutional Appears: Non-toxic, No Acute Distress - Head Exam Head Exam: ATRAUMATIC, NORMOCEPHALIC - Eye Exam Eye Exam: EOMI, Normal appearance - ENT Exam ENT Exam: Mucous Membranes Moist - Respiratory Exam Respiratory Exam: NORMAL BREATHING PATTERN. absent: Respiratory Distress - Cardiovascular Exam Cardiovascular Exam: REGULAR RHYTHM. absent: Tachycardia - GI/Abdominal Exam Additional comments: soft nontender. 2x midline laparoscopic incisions, edges well approximated and dermabond dressing on top Assessment and Plan - Assessment and Plan (Free Text) Assessment: 51 y/o female s/p lap geetha POD1 Plan: -cleared for d/c from surgical standpoint -f/u with Dr. Mcclain in 1-2 weeks -call office for appt -cont low fat diet -can shower, do not bathe or swim until cleared by surgeon -further recs per Dr. Mcclain AKite PGY1 <Hector Mcclain - Last Filed: 01/22/17 00:15> Objective - Vital Signs/Intake and Output Vital Signs (last 24 hours): Temp Pulse Resp BP Pulse Ox 98.5 F 83 20 122/72 93 L 12/28/16 08:16 12/28/16 08:16 12/28/16 08:16 12/27/16 16:00 12/28/16 08:16 - Labs Labs: 12/28/16 07:30 12/28/16 07:30 PT 10.3 Seconds (9.9-11.8) 12/25/16 08:00 INR 0.95 (0.93-1.08) 12/25/16 08:00 APTT 25.4 Seconds (23.7-30.8) 12/25/16 08:00 Assessment and Plan - Assessment and Plan (Free Text) Plan: Patient was seen and examined by me. I agree with assessment and plan as per resident's note.
[2016-12-28 08:16] VITALS: PULSE 83; TEMP 98.5
[2016-12-28] MEDS: Morphine 4 mg/ml ISec IVP PRN (08:37)
[2016-12-28] MEDS: Insulin Reg-LOW-Coverage SC SCH ×2 (08:52→12:47)
--- NOTE | 2016-12-28 14:52 | CP.PCM.PN ---
Subjective - Date & Time of Evaluation Date of Evaluation: 12/28/16 Time of Evaluation: 08:00 - Subjective Subjective: DOING WELL Objective - Vital Signs/Intake and Output Vital Signs (last 24 hours): Temp Pulse Resp BP Pulse Ox 98.5 F 83 20 122/72 93 L 12/28/16 08:16 12/28/16 08:16 12/28/16 08:16 12/27/16 16:00 12/28/16 08:16 Intake and Output: 12/28/16 12/28/16 06:59 18:59 Intake Total 960 480 Balance 960 480 - Medications Medications: Current Medications Clonidine HCl (Catapres) 0.1 mg PO Q6 PRN PRN Reason: Systolic Blood Pressure Last Admin: 12/26/16 22:55 Dose: 0.1 mg Hydrochlorothiazide (Microzide) 12.5 mg PO DAILY [facility] Last Admin: 12/28/16 10:32 Dose: 12.5 mg Insulin Human Regular (Humulin R Low) 0 units SC ACHS [facility] PRN Reason: Protocol Last Admin: 12/28/16 12:47 Dose: Not Given Losartan Potassium (Cozaar) 100 mg PO DAILY [facility] Last Admin: 12/28/16 10:33 Dose: 100 mg Metoclopramide HCl (Reglan) 10 mg IV ONCE PRN PRN Reason: Nausea/Vomiting Morphine Sulfate (Morphine) 4 mg IVP Q4H PRN PRN Reason: Pain, severe (8-10) Last Admin: 12/28/16 08:37 Dose: 4 mg Ondansetron HCl (Zofran Inj) 4 mg IVP Q6H PRN PRN Reason: Nausea/Vomiting Last Admin: 12/27/16 19:47 Dose: 4 mg Pantoprazole Sodium (Protonix Inj) 40 mg IVP DAILY [facility] Last Admin: 12/28/16 10:33 Dose: 40 mg Tramadol HCl (Ultram) 50 mg PO Q6 PRN PRN Reason: Pain, moderate (4-7) Last Admin: 12/27/16 13:02 Dose: 50 mg - Labs Labs: 12/28/16 07:30 12/28/16 07:30 PT 10.3 Seconds (9.9-11.8) 12/25/16 08:00 INR 0.95 (0.93-1.08) 12/25/16 08:00 APTT 25.4 Seconds (23.7-30.8) 12/25/16 08:00 - Constitutional Appears: Well - Head Exam Head Exam: ATRAUMATIC, NORMAL INSPECTION, NORMOCEPHALIC - Eye Exam Eye Exam: EOMI, Normal appearance, PERRL Pupil Exam: NORMAL ACCOMODATION, PERRL - ENT Exam ENT Exam: Mucous Membranes Moist, Normal Exam - Neck Exam Neck Exam: Full ROM, Normal Inspection. absent: Lymphadenopathy - Respiratory Exam Respiratory Exam: Clear to Ausculation Bilateral, NORMAL BREATHING PATTERN - Cardiovascular Exam Cardiovascular Exam: REGULAR RHYTHM, +S1, +S2. absent: Murmur - GI/Abdominal Exam GI & Abdominal Exam: Soft, Normal Bowel Sounds. absent: Tenderness - Rectal Exam Rectal Exam: NORMAL INSPECTION - Exam Exam: Circumcision, NORMAL INSPECTION External exam: NORMAL EXTERNAL EXAM Speculum exam: NORMAL SPECULUM EXAM Bimanual exam: NORMAL BIMANUAL EXAM - Extremities Exam Extremities Exam: Full ROM, Normal Capillary Refill, Normal Inspection. absent : Joint Swelling, Pedal Edema - Back Exam Back Exam: NORMAL INSPECTION - Neurological Exam Neurological Exam: Alert, Awake, CN II-XII Intact, Normal Gait, Oriented x3 - Psychiatric Exam Psychiatric exam: Normal Affect, Normal Mood - Skin Skin Exam: Dry, Intact, Normal Color, Warm Assessment and Plan (1) Acute cholecystitis Status: Acute - Assessment and Plan (Free Text) Plan: DC ABX PATH NOTED D/W WITH PMD AND STAFF
--- NOTE | 2016-12-29 18:03 | RAD ---
PROCEDURE: ERCP HISTORY: ? CBD OBST COMPARISON: None TECHNIQUE: Standard protocol for this study/examination. FINDINGS: Total fluoroscopic time (continuous mode) utilized during the procedure: 3 minutes 34 seconds fluoro time. IMPRESSION: Submitted images from the current procedure: 5.0.
--- NOTE | 2017-01-17 11:46 | OP ---
PROCEDURE DATE: 12/27/2016 PREOPERATIVE DIAGNOSIS: Acute cholecystitis with cholelithiasis. POSTOPERATIVE DIAGNOSES: Acute cholecystitis with cholelithiasis and dense intraabdominal adhesions. PROCEDURES: 1. Laparoscopic cholecystectomy. 2. Lysis of dense intraabdominal adhesions. SURGEON: Dr. Hector Mcclain MD RISK MANAGEMENT DIRECTOR: Dr. Chin. TYPE OF ANESTHESIA: General endotracheal anesthesia. SPECIMEN: Gallbladder. ESTIMATED BLOOD LOSS: Minimal. INDICATIONS: The patient is a 51-year-old morbidly obese female who was admitted with pancreatitis and was treated first conservatively. Subsequently, the patient had ERCP with sphincterotomy for common bile duct stone removal. Now, the patient was brought in for laparoscopic cholecystectomy. DESCRIPTION OF PROCEDURE: The patient was brought to the operating room, placed in the operating table in a supine position. The patient was connected to the EKG, blood pressure, and pulse oximetry monitor. The patient then underwent general endotracheal anesthesia and was prepped and draped in usual sterile fashion. Per standard time-out, procedure took place where everybody in the room agreed as to the patient's identity, diagnosis, and procedure to be performed. Using 2 towel clips, the anterior abdominal wall was elevated and inserted through small incision superior to the umbilicus. Once pneumoperitoneum was obtained, 12 mm trocar was inserted in through that incision and carefully evaluation of abdominal cavity revealed the presence of dense intraabdominal adhesions of amentum touch to the anterior abdominal wall throughout the right upper quadrant. There was also some adhesions of omentum down into right lower quadrant. The second 5 mm trocar was then inserted in the midline slightly laterally in order to avoid entering through the adhesions. Once this was done, a tedious dissection took place in order to separate the omentum from the falciform ligament, followed it down towards the liver edge and carefully dissected off the adhesions of omentum to the liver itself. Once this was done, finally arrived at the point where portion of the gallbladder was visualized and also had dense adhesions of omentum to that structure due to the acute cholecystitis. This was again tediously taken down. All the lysis of adhesions took about an hour and 15 minutes in order to expose the gallbladder from the adhesions. Once this was done, I then proceeded with drainage of the extremely distended gallbladder and proceeded with careful dissection down towards the infundibulum. Once this was done, careful dissection around the area allowed me to expose the cystic duct itself. Visualized the pericystic duct lymph nodes and also the cystic artery directly behind it. The cystic duct was now clipped proximally and distally and transected. The cystic artery was also clipped and transected and the gallbladder was carefully taken off its liver bed using electrocautery. Once the gallbladder was completely taken down off the liver and the liver bed appeared to have adequate hemostasis and then proceed with retrieving the gallbladder through the 10 mm port with Endo Catch bag and removed it from the abdominal cavity. Right upper quadrant was now copiously irrigated, all the bleeding points cauterized, the entry site of the ports were evaluated, there was noted not to have any bleeding and at this point, pneumoperitoneum was released, trocars removed and the wound closed using 0 Vicryl for the fascia, 3-0 Vicryl for subcutaneous tissue and 4-0 Monocryl for skin. Hector Mcclain MD
--- NOTE | 2017-03-07 23:00 | DS ---
HISTORY OF PRESENT ILLNESS: The patient was admitted with abdominal pain, found to have acute cholecystitis, she is morbid obese, uncontrolled diabetes and hypertension. The patient had CT of abdomen and MRCP, which showed small stone in common bile duct. The patient was seen by GI consult, Dr. Bui and Dr. Cutler, surgical counselor. She was given IV fluids, IV antibiotics, her sugar controlled, blood pressure controlled and she underwent surgery and ERCP. The patient did well and was discharged home. On discharge, her hospital course was stable, no complications. PHYSICAL EXAMINATION: VITAL SIGNS: Temperature 98.5, heart rate 86, respirations 20, saturation 99% in room air. HEAD AND NECK: Normal. No JVD. No thyromegaly. CHEST EXAM: Very good air entry. CARDIAC: First and second sounds normal. ABDOMEN: Obese, tender at the surgical site. EXTREMITIES: No edema. NEUROLOGIC EXAM: Normal. LABORATORY DATA: White count 6.2, hemoglobin 10.5, hematocrit 32.9, platelets 301. Chemistry, sodium 137, potassium 3.9, chloride 103, bicarb 26, BUN 20, creatinine 0.9. Liver function test is normal. Blood sugar 127, AST is 93, ALT 181, alkaline phosphatase 48. The patient was advised to follow up with her primary doctor, repeat liver function test as outpatient and maintain her sugar control. The patient advised also to follow up with me within next 4 to 5 days to repeat her labs. DISCHARGE DIAGNOSES: 1. Acute abdomen. 2. Acute cholecystitis. 3. Cholelithiasis. 4. Hypertension. 5. Uncontrolled diabetes. 6. Morbid obesity. 7. Possible obstructive sleep apnea. PLAN: Discharge after surgery and follow up in office in a week. Eben Welsh MD
== END 2016-12-28 17:32 | disposition home or self-care (01) | DRG 418 ==
LOC: ED 14:47 → ERH 19:00 → 3RNO 21:35
PROVIDERS: ADMIT Internal Medicine; ATTEND Internal Medicine
PROC: 0FC98ZZ Extirpation of Matter from Common Bile Duct, Via Natural or Artificial Opening Endoscopic (ICD-10-PCS; 2016-12-26 15:00)
PROC: 0DJ08ZZ Inspection of Upper Intestinal Tract, Via Natural or Artificial Opening Endoscopic (ICD-10-PCS; 2016-12-26 15:00)
PROC: 0FT44ZZ Resection of Gallbladder, Percutaneous Endoscopic Approach (ICD-10-PCS; principal; 2016-12-27 09:00)
DX: K80.62 Calculus of gallbladder and bile duct with acute cholecystitis without obstruction (principal); Z68.43 Body mass index [BMI] 50.0-59.9, adult; I10 Essential (primary) hypertension; K44.9 Diaphragmatic hernia without obstruction or gangrene; J45.909 Unspecified asthma, uncomplicated; E78.5 Hyperlipidemia, unspecified; E78.00 Pure hypercholesterolemia, unspecified; M54.40 Lumbago with sciatica, unspecified side; G89.29 Other chronic pain; E11.9 Type 2 diabetes mellitus without complications; R09.81 Nasal congestion; K20.9 Esophagitis, unspecified; K59.00 Constipation, unspecified; E66.01 Morbid (severe) obesity due to excess calories; Z87.891 Personal history of nicotine dependence

== ENCOUNTER 2017-01-15 12:17 | Emergency (ER) | payer OTHER ==
[2017-01-15 12:33] VITALS: BMI 49.8
[2017-01-15 12:40] VITALS: TEMP 98.3
[2017-01-15 13:03] VITALS: BP 159/95; PULSE 113; RESP 20; O2SAT 94
[2017-01-15] MEDS ORDERED: Albuterol-Ipratrop 3 mg / 0.5 (3 ml) UD IH STA ×2 (13:08→13:09)
--- NOTE | 2017-01-15 15:01 | ED PDOC ---
Arrival/HPI - General Chief Complaint: Shortness Of Breath Time Seen by Provider: 01/15/17 12:54 Historian: Patient - History of Present Illness Narrative History of Present Illness (Text): 01/15/17 14:57 A 51 year old female, whose past medical history includes childhood asthma, presents to the emergency department complaining of shortness of breath for the past few days. Patient states his symptom is worse with exertion. Patient denies nay fever, chills, nausea, vomiting, diarrhea, abdominal pain, chest pain , cough or any other complaints. Patient reports he has a cholecystectomy 2 weeks ago. Time/Duration: Other (few days) Symptom Course: Unchanged Quality: Other Context: Home Past Medical History - Provider Review Nursing Documentation Reviewed: Yes - Infectious Disease Hx of Infectious Diseases: None - Tetanus Immunization Tetanus Immunization: Unknown - Cardiac Hx Hypertension: Yes - Pulmonary Hx Asthma: Yes - Neurological Hx Neurological Disorder: No - HEENT Hx HEENT Disorder: No - Renal Hx Renal Disorder: No - Endocrine/Metabolic Hx Endocrine Disorders: No - Hematological/Oncological Hx Blood Transfusions: No Hx Blood Transfusion Reaction: No - Integumentary Hx Dermatological Disorder: No - Musculoskeletal/Rheumatological Hx Back Pain: Yes - Gastrointestinal Hx Gall Bladder Disease: Yes (s/p cholecystectomy) - Genitourinary/Gynecological Hx Genitourinary Disorders: No - Psychiatric Hx Psychophysiologic Disorder: No Hx Substance Use: No - Past Surgical History Past Surgical History: No Previous - Surgical History Other/Comment: tonsillectomy - Anesthesia Hx Anesthesia: Yes Hx Anesthesia Reactions: No Hx Malignant Hyperthermia: No - Suicidal Assessment Feels Threatened In Home Enviroment: No Family/Social History - Physician Review Nursing Documentation Reviewed: Yes Family/Social History: No Known Family HX Smoking Status: Never Smoked Hx Alcohol Use: No Hx Substance Use: No Hx Substance Use Treatment: No Allergies/Home Meds Allergies/Adverse Reactions: Allergies No Known Allergies Allergy (Verified 12/21/16 15:08) Home Medications: Home Meds Medication Instructions Recorded Confirmed HCTZ/Losartan Potassium [Hyzaar 1 tab PO DAILY 12/21/16 01/15/17 12.5 mg-50 mg] oxyCODONE/Acetaminophen [Percocet 1 tab PO Q6 PRN 12/21/16 01/15/17 5/325 mg Tab] Review of Systems - Physician Review All systems were reviewed & negative as marked: Yes - Review of Systems Constitutional: absent: Fevers, Night Sweats Respiratory: SOB. absent: Cough Cardiovascular: absent: Chest Pain Gastrointestinal: absent: Abdominal Pain, Diarrhea, Nausea, Vomiting Physical Exam Vital Signs Reviewed: Yes Vital Signs Temp Pulse Resp BP Pulse Ox 01/15/17 13:02 113 H 20 159/95 H 94 L 01/15/17 12:37 98.3 F 117 H 18 116/89 96 Temperature: Afebrile Blood Pressure: Normal Pulse: Tachycardic Respiratory Rate: Normal Appearance: Positive for: Well-Appearing, Non-Toxic, Comfortable Pain Distress: None Mental Status: Positive for: Alert and Oriented X 3 - Systems Exam Head: Present: Atraumatic, Normocephalic Pupils: Present: PERRL Extroacular Muscles: Present: EOMI Conjunctiva: Present: Normal Mouth: Present: Moist Mucous Membranes Neck: Present: Normal Range of Motion Respiratory/Chest: Present: Clear to Auscultation, Good Air Exchange. No: Respiratory Distress, Accessory Muscle Use Cardiovascular: Present: Regular Rate and Rhythm, Normal S1, S2. No: Murmurs Abdomen: Present: Normal Bowel Sounds. No: Tenderness, Distention, Peritoneal Signs Back: Present: Normal Inspection Upper Extremity: Present: Normal Inspection. No: Cyanosis, Edema Lower Extremity: Present: Normal Inspection. No: Edema Neurological: Present: GCS=15, CN II-XII Intact, Speech Normal Skin: Present: Warm, Dry, Normal Color. No: Rashes Psychiatric: Present: Alert, Oriented x 3, Normal Insight, Normal Concentration Medical Decision Making ED Course and Treatment: 01/15/17 14:57 Impression: A 51 year old female with shortness of breath on exertion. Plan: -- CT chest angio -- EKG -- Labs -- Urinalysis -- Duoneb and Solumedrol -- Reassess and disposition Progress Notes: EKG shows sinus tachycardia at 116 BPM with normal axis, normal intervals. Interpreted by me. Shortly after patient was examined she walked out of the emergency department. - Lab Interpretations I have reviewed the lab results: Yes - Medication Orders Current Medication Orders: Discontinued Medications Albuterol/Ipratropium (Duoneb 3 Mg/0.5 Mg (3 Ml) Ud) 3 ml IH STAT STA Stop: 01/15/17 13:09 Albuterol/Ipratropium (Duoneb 3 Mg/0.5 Mg (3 Ml) Ud) 3 ml IH STAT STA Stop: 01/15/17 13:10 Methylprednisolone (Solu-Medrol) 125 mg IVP STAT STA Stop: 01/15/17 13:09 - Scribe Statement The provider has reviewed the documentation as recorded by the Ezioiberendira Canales Provider Scribe Attestation: All medical record entries made by the Scribe were at my direction and personally dictated by me. I have reviewed the chart and agree that the record accurately reflects my personal performance of the history, physical exam, medical decision making, and the department course for this patient. I have also personally directed, reviewed, and agree with the discharge instructions and disposition. Disposition/Present on Arrival - Present on Arrival Any Indicators Present on Arrival: No History of DVT/PE: No History of Uncontrolled Diabetes: No Urinary Catheter: No History of Decub. Ulcer: No History Surgical Site Infection Following: None - Disposition Have Diagnosis and Disposition been Completed?: Yes Diagnosis: Obesity, Shortness of breath Disposition: ELOPEMENT - ER ONLY Disposition Time: 13:30 Condition: UNKNOWN
--- NOTE | 2017-01-15 20:49 | CARD ---
APPROVED REPORT EKG Measurement Heart [id number] <Conclusion> Sinus tachycardia Low voltage QRS Septal infarct, age undetermined Abnormal ECG
== END 2017-01-15 13:19 | disposition left against medical advice (07) ==
LOC: ED 12:17
DX: R06.02 Shortness of breath (principal); E66.9 Obesity, unspecified; I10 Essential (primary) hypertension

== ENCOUNTER 2017-01-16 15:00 | Inpatient (IN) | payer OTHER ==
[2017-01-16] MEDS ORDERED: Ipratropium 0.02% Inhal Soln (0.5 mg/2.5 ml) UD IH STA (16:06)
[2017-01-16] MEDS ORDERED: Levalbuterol 1.25 MG/3 ML Inhal Soln UD IH STA (16:06)
--- NOTE | 2017-01-16 16:08 | ED PDOC ---
Arrival/HPI - General Chief Complaint: Shortness Of Breath Time Seen by Provider: 01/16/17 15:02 Historian: Patient - History of Present Illness Narrative History of Present Illness (Text): 01/16/17 16:02 Terrie Mederos is a 51 year old female, whose past medical history includes asthma, hypertension, and cholecystectomy (3 weeks ago), presents to the Emergency department complaining of shortness of breath. She states that she has been having this for a week and it becomes worse when walking. Patient reports that when she uses her breathing machine she has a mild cough. Patient denies chest pain, headache, fever, chills, back pain, nausea, vomiting, diarrhea, abdominal pain, lower extremity pain/swelling, dizziness or other complaints. Time/Duration: 1 week Symptom Onset: Sudden Symptom Course: Unchanged Activities at Onset: Light Modifying Factors (Text): shortness of breath is worse when walking Context: Walking Associated Symptoms (Text): mild cough when using breathing machine Past Medical History - Provider Review Nursing Documentation Reviewed: Yes - Infectious Disease Hx of Infectious Diseases: None - Tetanus Immunization Tetanus Immunization: Unknown - Cardiac Hx Hypertension: Yes - Pulmonary Hx Asthma: Yes - Neurological Hx Neurological Disorder: No - HEENT Hx HEENT Disorder: No - Renal Hx Renal Disorder: No - Endocrine/Metabolic Hx Endocrine Disorders: No - Hematological/Oncological Hx Blood Transfusions: No Hx Blood Transfusion Reaction: No - Integumentary Hx Dermatological Disorder: No - Musculoskeletal/Rheumatological Hx Back Pain: Yes - Gastrointestinal Hx Gall Bladder Disease: Yes (s/p cholecystectomy) - Genitourinary/Gynecological Hx Genitourinary Disorders: No - Psychiatric Hx Psychophysiologic Disorder: No Hx Substance Use: No - Past Surgical History Past Surgical History: No Previous - Surgical History Other/Comment: tonsillectomy - Anesthesia Hx Anesthesia: Yes Hx Anesthesia Reactions: No Hx Malignant Hyperthermia: No - Suicidal Assessment Feels Threatened In Home Enviroment: No Family/Social History - Physician Review Nursing Documentation Reviewed: Yes Family/Social History: Unknown Family HX Smoking Status: Never Smoked Hx Alcohol Use: No Hx Substance Use: No Hx Substance Use Treatment: No Allergies/Home Meds Allergies/Adverse Reactions: Allergies No Known Allergies Allergy (Verified 12/21/16 15:08) Home Medications: Home Meds Medication Instructions Recorded Confirmed HCTZ/Losartan Potassium [Hyzaar 1 tab PO DAILY 12/21/16 01/15/17 12.5 mg-50 mg] oxyCODONE/Acetaminophen [Percocet 1 tab PO Q6 PRN 12/21/16 01/15/17 5/325 mg Tab] Review of Systems - Review of Systems Constitutional: absent: Fevers Eyes: Normal ENT: Normal Respiratory: SOB, Cough (mild cough with breathing machine) Cardiovascular: [place]. absent: Chest Pain Gastrointestinal: absent: Abdominal Pain, Diarrhea, Nausea, Vomiting Musculoskeletal: Normal Skin: Normal Neurological: Normal. absent: Headache Endocrine: Normal Hemo/Lymphatic: Normal Psychiatric: Normal Physical Exam Vital Signs Reviewed: Yes Vital Signs Temp Pulse Resp BP Pulse Ox 01/16/17 21:06 118 H 24 132/86 99 01/16/17 18:58 100 H 20 137/82 100 01/16/17 17:20 104 H 18 131/79 99 01/16/17 16:20 19 100 01/16/17 16:03 98.2 F 113 H 18 133/87 99 Temperature: Afebrile Blood Pressure: Normal Pulse: Tachycardic Respiratory Rate: Tachypneic Appearance: Positive for: Non-Toxic Pain Distress: None Mental Status: Positive for: Alert and Oriented X 3 - Systems Exam Head: Present: Atraumatic, Normocephalic Pupils: Present: PERRL Conjunctiva: Present: Normal Mouth: Present: Moist Mucous Membranes Pharnyx: Present: Normal. No: ERYTHEMA, EXUDATE Neck: Present: Normal Range of Motion Respiratory/Chest: Present: Tachypneic. No: Accessory Muscle Use Cardiovascular: Present: Normal S1, S2, Tachycardic. No: Murmurs Abdomen: Present: Normal Bowel Sounds. No: Tenderness, Distention, Peritoneal Signs Upper Extremity: Present: Normal Inspection. No: Cyanosis, Edema Lower Extremity: Present: Normal Inspection. No: Edema Neurological: Present: GCS=15, CN II-XII Intact, Speech Normal Skin: Present: Warm, Dry, Normal Color. No: Rashes Psychiatric: Present: Alert, Oriented x 3, Normal Insight, Normal Concentration Medical Decision Making ED Course and Treatment: 01/16/17 16:02 Impression: 51 year old female with shortness of breath. Differential Diagnosis included but are not limited to: pulmonary embolism vs. asthma/COPD vs. Pneumonia vs. CHF Plan: -- CAT scan of chest -- Chest X-ray -- Labs -- Urinalysis -- Pepcid, Atrovent, Solumedrol, and Xopenex -- Reassess and disposition Progress Notes: EKG: Ordered, reviewed, and independently interpreted the EKG. Rate : 113 BPM Rhythm : Sinus tachycardia Interpretation : Left [place] Deviation with PVCs. No ST/T changes compared to previous EKG. Comparison : 01/15/2017 01/16/17 17:30 Chest x-ray: Creator : CHARLES WHITING MD COMPARISON: 01/15/2017. FINDINGS: LUNGS: The lungs are well inflated and clear. PLEURA: No significant pleural effusion identified, no pneumothorax apparent. CARDIOVASCULAR: Normal. OSSEOUS STRUCTURES: No significant abnormalities. VISUALIZED UPPER ABDOMEN: Normal. OTHER FINDINGS: None. IMPRESSION: No acute findings. 01/16/17 17:[address]: Creator : Wili Thompson MD FINDINGS: PULMONARY ARTERIES: Although there is no saddle embolus, there substantial embolic disease in the right main pulmonary artery affecting right middle and right lower lobe pulmonary arteries as well as segmental branches. Embolic disease identified in the left lower lobe and lingular branches. The degree of embolism is underestimated because of poor bolus technique as evidenced qualitatively and by low Hounsfield unit values in the main pulmonary artery AORTA: No acute findings. No thoracic aortic aneurysm. LUNGS: Unremarkable. No nodule, mass or pulmonary consolidation. PLEURAL SPACES: Unremarkable. No effusion or pneuomothorax. HEART: Unremarkable. No cardiomegaly. No significant pericardial effusion. LYMPH NODES: No lymphadenopathy. BONES, CHEST WALL: Unremarkable. No fracture or destructive lesion OTHER FINDINGS: Small hiatal hernia. IMPRESSION: Extensive pulmonary embolism primarily affecting both lower lobes right greater than left. Communication of results: Study completed at 17:12. For results provided to Dr. Davila at 17:43. Final results available in the electronic medical record 17:47 January 14, 2017. 01/16/17 18:[address] Morse for admission to her service. Case discussed with Dr. Mcclain, who requested discussion with Dr. Odonnell to obtain stat echo -cardiogram for possible TPA. 01/16/17 18:30 Dr. Odonnell trying to arrange state echo. 01/16/17 20:00 Case had been discussed with Dr. Quintin Hoyt, who recommended higher dose of heparin bolus and infusion and earlier PTT. Case discussed with Dr. Lauren for ICU evaluation. 01/16/17 21:07 Emergent Echo was done showing no RV strain, so no indication for TPA. She was seen and evaluated by Dr. Lauren, who said that since echo shows no RV strain with patient hemodynamically stable - may be admitted to tele. - Critical Care Critical Care Minutes: 45 minutes - Lab Interpretations Lab Results: 01/16/17 16:00 01/16/17 16:00 Lab Results 01/16/17 16:30: Urine Color Yellow, Urine Appearance Sl cloudy, Urine pH 6.0, Ur Specific [place] 1.025, Urine Protein 30 H, Urine Glucose (UA) 250 H, Urine Ketones Negative, Urine Blood Negative, Urine Nitrate Negative, Urine Bilirubin Negative, Urine Urobilinogen 0.2, Ur Leukocyte Esterase Negative, Urine RBC 0 - 2, Urine WBC 0 - 2, Ur Epithelial Cells Many, Urine Bacteria Few 01/16/17 16:00: Sodium 139, Potassium 3.6, Chloride 103, Carbon Dioxide 21, Anion Gap 19, BUN 17, Creatinine 0.8, Est GFR ( Amer) > 60, Est GFR (Non- Af Amer) > 60, Random Glucose 231 H, Calcium 9.4, Total Bilirubin 0.5, AST 24, ALT 28, Alkaline Phosphatase 146 H, Lactate Dehydrogenase 507, Total Creatine Kinase 159, Troponin I 0.08 D, NT-Pro-B Natriuret Pep 1630 H, Total Protein 8.0 , Albumin 4.3, Globulin 3.7, Albumin/Globulin Ratio 1.1 01/16/17 16:00: PT 11.4, INR 1.06, APTT 27.2 01/16/17 16:00: WBC 7.7 D, RBC 4.71, Hgb 13.1, Hct 39.5, MCV 83.9, MCH 27.8, MCHC 33.2, RDW 15.1 H, Plt Count 242, MPV 10.9, Gran % 74.0 H, Lymph % (Auto) 20.7 L, [place] % (Auto) 4.0, Eos % (Auto) 1.0 L, Baso % (Auto) 0.3, Gran # 5.71, Lymph # 1.6, [place] # 0.3, Eos # 0.1, Baso # 0.02 I have reviewed the lab results: Yes - RAD Interpretation Radiology Orders: 01/16/17 16:05 ANGIO CHEST PE PROTOCOL [CT] Stat CHEST PORTABLE [RAD] Stat Claims Adjuster: Radiologist - EKG Interpretation Interpreted by ED Physician: Yes Type: 12 lead EKG - Medication Orders Current Medication Orders: Heparin Sodium/Dextrose (Heparin 25,000 Units/250ml In D5w) 25,000 units in 250 mls @ 20.086 mls/hr IV .[id number] PRN; Protocol; 14.82 UNITS/KG/HR PRN Reason: ADJUST RATE PER PROTOCOL Last Admin: 01/16/17 18:47 Dose: 14.82 units/kg/hr, 20.086 mls/hr Discontinued Medications Famotidine (Pepcid) 20 mg IVP STAT STA Stop: 01/16/17 16:07 Last Admin: 01/16/17 16:47 Dose: 20 mg Heparin Sodium (Porcine) (Heparin) 7,100 units 80 units/kg (26681 units) IV ONCE ONE PRN Reason: Protocol Stop: 01/16/17 18:31 Last Admin: 01/16/17 18:32 Dose: 7,100 units Heparin Sodium (Porcine) (Heparin) 2,900 units IV STAT STA Stop: 01/16/17 18:48 Last Admin: 01/16/17 18:57 Dose: 2,900 units Heparin Sodium/Dextrose (Heparin 25,000 Units/250ml In D5w) 25,000 units in 250 mls @ 16.02 mls/hr IV .[id number] PRN; Protocol; 11.82 UNITS/KG/HR PRN Reason: ADJUST RATE PER PROTOCOL Last Admin: 01/16/17 18:37 Dose: 16.02 mls/hr Iodixanol (Visipaque) Confirm Administered Dose 150 ml IV .STK-MED ONE Stop: 01/16/17 16:28 Iohexol (Omnipaque 350 150 Ml) Confirm Administered Dose 150 ml .ROUTE .STK-MED ONE Stop: 01/16/17 16:24 Ipratropium [place] (Atrovent) 0.5 mg IH STAT STA Stop: 01/16/17 16:07 Last Admin: 01/16/17 16:48 Dose: 0.5 mg Levalbuterol HCl (Xopenex) 1.25 mg IH STAT STA Stop: 01/16/17 16:07 Last Admin: 01/16/17 16:47 Dose: 1.25 mg Methylprednisolone (Solu-Medrol) 125 mg IVP STAT STA Stop: 01/16/17 16:07 Last Admin: 01/16/17 16:46 Dose: 125 mg - PA / WEAVER APPRENTICE / Resident Statement MD/DO has reviewed & agrees with the documentation as recorded. MD/DO has examined the patient and agrees with the treatment plan. - Scribe Statement The provider has reviewed the documentation as recorded by the Scribe 01/16/2017 Sarah Linder Provider Scribe Attestation: All medical record entries made by the Scribe were at my direction and personally dictated by me. I have reviewed the chart and agree that the record accurately reflects my personal performance of the history, physical exam, medical decision making, and the department course for this patient. I have also personally directed, reviewed, and agree with the discharge instructions and disposition. Disposition/Present on Arrival - Present on Arrival Any Indicators Present on Arrival: No History of DVT/PE: No History of Uncontrolled Diabetes: No Urinary Catheter: No History of Decub. Ulcer: No History Surgical Site Infection Following: None - Disposition Have Diagnosis and Disposition been Completed?: Yes Diagnosis: Pulmonary embolism Disposition: HOSPITALIZED Disposition Time: 18:05 Patient Plan: Admission, Telemetry Condition: FAIR
[2017-01-16] MEDS ORDERED: Iodixanol 320 mg/ml 150 ml Bottle IV ONE (16:27)
[2017-01-16 16:40] LABS: BASO # 0.02 K/mm3 (0.0-2.0); BASO % 0.3 % (0.0-3.0); EOS # 0.1 (0.0-0.7); GRAN # 5.71 (1.4-6.5); HEMOGLOBIN 13.1 gm/dL (12.0-16.0); LYMPH # 1.6 (1.2-3.4); LYMPH % 20.7 % (22.0-35.0); MEAN CELL VOLUME 83.9 fL (80.0-105.0); MEAN CORPUSCULAR HEMOGLOBIN 27.8 pg (25.0-35.0); MEAN CORPUSCULAR HGB CONC 33.2 g/dl (31.0-37.0); MEAN PLATELET VOLUME 10.9 fl (7.0-11.0); MONO # 0.3 (0.1-0.6); PLATELET COUNT 242 10^3/uL (120.0-450.0); RBC 4.71 10^6/uL (3.5-6.1); RED CELL DISTRIBUTION WIDTH 15.1 % (11.5-14.5); WHITE BLOOD COUNT 7.7 10^3/ul (4.5-11.0)
[2017-01-16 16:47] LABS: ALB/GLOB RATIO 1.1 (1.1-1.8); ALBUMIN 4.3 g/dL (3.0-4.8); ALT/SGPT 28 U/L (7-56); AST/SGOT 24 U/L (15-39); BLOOD UREA NITROGEN 17 mg/dL (7-21); CALCIUM 9.4 mg/dL (8.4-10.5); GFR AFRICAN-AMERICAN > 60; GFR NON-AFRICAN AMERICAN > 60
[2017-01-16 16:49] LABS: INR 1.06 (0.93-1.08); PARTIAL THROMBOPLASTIN TIME 27.2 Seconds (23.7-30.8); PROTHROMBIN TIME 11.4 Seconds (9.9-11.8)
[2017-01-16 16:56] LABS: URINE BILIRUBIN NEGATIVE (NEGATIVE); URINE BLOOD NEGATIVE (NEGATIVE); URINE GLUCOSE (UA) 250 mg/dL (NEGATIVE); URINE LEUKOCYTE ESTERASE NEGATIVE Leu/uL (NEGATIVE); URINE NITRATE NEGATIVE (NEGATIVE); URINE PROTEIN 30 mg/dL (<30 mg/dL); URINE UROBILINOGEN 0.2 E.U./dL (<1 E.U./dL)
[2017-01-16 17:00] LABS: B-TYPE NATRIURETIC PEPTIDE 1630 pg/mL (0-450); TROPONIN I 0.08 ng/mL
[2017-01-16 17:05] LABS: URINE COLOR YELLOW (YELLOW)
[2017-01-16 17:06] LABS: URINE APPEARANCE SL CLOUDY (CLEAR)
[2017-01-16 17:22] LABS: URINE EPITHELIAL CELLS MANY /hpf (0-5); URINE RBC 0 - 2 /hpf (0-2); URINE WBC 0 - 2 /hpf (0-6)
[2017-01-16 17:23] LABS: URINE BACTERIA FEW (NEG)
--- NOTE | 2017-01-16 17:25 | RAD ---
HISTORY: Shortness of breath COMPARISON: 01/15/2017. FINDINGS: LUNGS: The lungs are well inflated and clear. PLEURA: No significant pleural effusion identified, no pneumothorax apparent. CARDIOVASCULAR: Normal. OSSEOUS STRUCTURES: No significant abnormalities. VISUALIZED UPPER ABDOMEN: Normal. OTHER FINDINGS: None. IMPRESSION: No acute findings.
[2017-01-16] MEDS ORDERED: Heparin 25,000units in D5W 25,000 UNITS/250 ML BAG IV PRN ×3 (17:44→18:28)
--- NOTE | 2017-01-16 17:51 | CT ---
PROCEDURE: CT Chest with contrast (Pulmonary Angiogram) HISTORY: sob, post - op - r/o PE COMPARISON: None available. TECHNIQUE: Axial computed tomography images were obtained of the chest in the pulmonary arterial phase of enhancement. Coronal and sagittal reformatted images were created and reviewed. Intravenous contrast dose: 150 cc Visipaque 320. Mean Hounsfield unit values in the main pulmonary artery: 127 Radiation dose: Total exam DLP = 2160.54 mGy-cm. This CT exam was performed using one or more of the following dose reduction techniques: Automated exposure control, adjustment of the mA and/or kV according to patient size, and/or use of iterative reconstruction technique. FINDINGS: PULMONARY ARTERIES: Although there is no saddle embolus, there substantial embolic disease in the right main pulmonary artery affecting right middle and right lower lobe pulmonary arteries as well as segmental branches. Embolic disease identified in the left lower lobe and lingular branches. The degree of embolism is underestimated because of poor bolus technique as evidenced qualitatively and by low Hounsfield unit values in the main pulmonary artery AORTA: No acute findings. No thoracic aortic aneurysm. LUNGS: Unremarkable. No nodule, mass or pulmonary consolidation. PLEURAL SPACES: Unremarkable. No effusion or pneuomothorax. HEART: Unremarkable. No cardiomegaly. No significant pericardial effusion. LYMPH NODES: No lymphadenopathy. BONES, CHEST WALL: Unremarkable. No fracture or destructive lesion OTHER FINDINGS: Small hiatal hernia. IMPRESSION: Extensive pulmonary embolism primarily affecting both lower lobes right greater than left. Communication of results: Study completed at 17:12. For results provided to Dr. Manzo at 17:43. Final results available in the electronic medical record 17:47 January 14, 2017.
[2017-01-16 17:56] VITALS: BMI 52.9
[2017-01-16] MEDS: Heparin 25,000units in D5W 25,000 UNITS/250 ML BAG IV PRN (18:47)
--- NOTE | 2017-01-16 18:52 | CARD ---
APPROVED REPORT EKG Measurement Heart [id number] <Conclusion> Sinus tachycardia with frequent premature ventricular complexes Left axis deviation Low voltage QRS Septal infarct, age undetermined Abnormal ECG
--- NOTE | 2017-01-16 20:31 | CARD ---
APPROVED REPORT EXAM: Two-dimensional and M-mode echocardiogram with Doppler and color Doppler. INDICATION Pulmonary Embolism 2D DIMENSIONS Left Atrium (2D)3.6 (1.6-4.0cm)IVSd1.2 (0.7-1.1cm) LVDd3.9 (3.9-5.9cm)PWd1.5 (0.7-1.1cm) LVDs2.9 (2.5-4.0cm)FS (%) 25.1 % LVEF (%)50.2 (>50%) M-Mode DIMENSIONS Aortic Root2.70 (2.2-3.7cm)Aortic Cusp Exc.1.80 (1.5-2.0cm) Aortic Valve AoV Peak Ngkzxqmp819.0cm/Emmie Peak GR.14mmHg Mitral Valve MV E Fbygnnni75.1cm/sMV A Speeeptr43.8cm/sE/A ratio0.7 TDI E/Lateral E'0.0E/Medial E'0.0 Tricuspid Valve TR Peak [id number]/sRAP [id number] Peak Gr.18mmHg [id number] LEFT VENTRICLE The left ventricle is normal size. There is borderline concentric left ventricular hypertrophy. The left ventricular function is normal. The left ventricular ejection fraction is within the normal range. There is normal LV segmental wall motion. Transmitral Doppler flow pattern is Grade I-abnormal relaxation pattern. RIGHT VENTRICLE The right ventricle is normal size. There is normal right ventricular wall thickness. Systolic function is moderately reduced. TRICUSPID VALVE There is no pulmonary hypertension. GREAT VESSELS The aortic root displays mild to moderate sclerocalcific changes of the aortic root. <Conclusion> The right ventricle is normal size and wall thickness with moderately reduced Systolic function There is no pulmonary hypertension. There is borderline concentric left ventricular hypertrophy. The left ventricular function is normal. The left ventricular ejection fraction is within the normal range. There is normal LV segmental wall motion. Transmitral Doppler flow pattern is Grade I-abnormal relaxation pattern.
--- NOTE | 2017-01-16 22:24 | CP.PCM.HP ---
<LINETTE NICE - Last Filed: 01/16/17 22:27> History of Present Illness - History of Present Illness History of Present Illness: Pt is a 51 yo F with a PMHx of asthma, HTN, and hepatitis B presents with a cc of SOB. Pt states she has had mild SOB after her cholecystectomy about 3 weeks ago, which has progressively worsened over the last week. Pt denied prolonged bed rest post-operatively and attempted to ambulate as much as she could. However, she stated she was unable to ambulate for long periods without becoming nauseous and short of breath. Resting seemed to relieve her symptoms, but not completely. Pt states that her rescue inhaler did not alleviate her symptoms. Pt also c/o of right LE pain without swelling or erythema that started last week, but is unable to differentiate between her h/o lumbar radiculopathy and new onset pain. Pt denied v/f, chills, CP, cough, hemoptysis, abdominal pain, changes in bowel movements, polyuria, or dysuria. PMHx: asthma, HTN, hepatitis B, lumbar radiculopathy Surg: Laparoscopic Cholecystectomy (12/29/16) FHx: DC (before 50), CAD, DM SH: Denied tobacco, EtOH, or illicit drug use All: NKDA Medications: Percocet PO Q6H PRN, HCTZ/Losartan 12.5/50 PO daily Present on Admission - Present on Admission Any Indicators Present on Admission: Yes Review of Systems - Review of Systems All systems: reviewed and no additional remarkable complaints except Review of Systems: 12 point review of systems negative aside from those stated in HPI. Past Patient History - Infectious Disease Hx of Infectious Diseases: None - Tetanus Immunizations Tetanus Immunization: Unknown - Past Social History Smoking Status: Never Smoked - CARDIAC Hx Hypertension: Yes - PULMONARY Hx Asthma: Yes - NEUROLOGICAL Hx Neurological Disorder: No - HEENT Hx HEENT Problems: No - RENAL Hx Chronic Kidney Disease: No - ENDOCRINE/METABOLIC Hx Endocrine Disorders: No - HEMATOLOGICAL/ONCOLOGICAL Hx Blood Transfusions: No Hx Blood Transfusion Reaction: No - INTEGUMENTARY Hx Dermatological Problems: No - MUSCULOSKELETAL/RHEUMATOLOGICAL Hx Back Pain: Yes - GASTROINTESTINAL Hx Gall Bladder Disease: Yes (s/p cholecystectomy) - GENITOURINARY/GYNECOLOGICAL Hx Genitourinary Disorders: No - PSYCHIATRIC Hx Psychophysiologic Disorder: No Hx Substance Use: No - SURGICAL HISTORY Other/Comment: tonsillectomy - ANESTHESIA Hx Anesthesia: Yes Hx Anesthesia Reactions: No Hx Malignant Hyperthermia: No Meds Allergies/Adverse Reactions: Allergies Allergy/AdvReac Type Severity Reaction Status Date / Time No Known Allergies Allergy Verified 12/21/16 15:08 Physical Exam - Head Exam Head Exam: ATRAUMATIC, NORMOCEPHALIC - Eye Exam Eye Exam: EOMI, PERRL. absent: Conjunctival injection - ENT Exam ENT Exam: Mucous Membranes Moist, Normal Exam - Neck Exam Neck exam: Positive for: Full Rom. Negative for: Lymphadenopathy, Tenderness, Thyromegaly - Respiratory Exam Respiratory Exam: Accessory Muscle Use, Clear to Auscultation Bilateral. absent : Rales, Rhonchi, Wheezes - Cardiovascular Exam Cardiovascular Exam: RRR, +S1, +S2. absent: Diastolic murmur, Gallop, Rubs, Systolic Murmur - GI/Abdominal Exam GI & Abdominal Exam: Normal Bowel Sounds, Soft. absent: Distended, Guarding, Organomegaly, Rebound, Tenderness Additional comments: Incision sites consistent with laparoscopic cholecystectomy - Neurological Exam Neurological exam: Alert, CN II-XII Intact, Oriented x3, Reflexes Normal - Psychiatric Exam Psychiatric exam: Normal Affect - Skin Skin Exam: Dry, Intact, Normal Color, Warm Results - Vital Signs Recent Vital Signs: Last Vital Signs Temp 98.2 F 01/16/17 16:03 Pulse 118 H 01/16/17 21:06 Resp 24 01/16/17 21:06 BP 132/86 01/16/17 21:06 Pulse Ox 99 01/16/17 21:06 - Labs Result Diagrams: 01/16/17 16:00 01/16/17 16:00 Assessment & Plan - Assessment and Plan (Free Text) Assessment: 51 yo F with PMHx of asthma, HTN, and hepatitis B, who presented with a cc of SOB, will be admitted for treatment and evaluation for bilateral pulmonary emboli. <Ced Lauren Q - Last Filed: 01/16/17 22:38> Results - Vital Signs Recent Vital Signs: Last Vital Signs Temp 98.2 F 01/16/17 16:03 Pulse 118 H 01/16/17 21:06 Resp 24 01/16/17 21:06 BP 132/86 01/16/17 21:06 Pulse Ox 99 01/16/17 21:06 - Labs Result Diagrams: 01/16/17 16:00 01/16/17 16:00 Attending/Attestation - Attestation I have personally seen and examined this patient.: Yes I have fully participated in the care of the patient.: Yes I have reviewed all pertinent clinical information: Yes Notes (Text): 01/16/17 22:33 I agree with the above mentioned note by the resident physician with the addition of the followin51 y/o obese female with a PMHx of Asthma, Hep B, Lumbar radiculopathy who underwent a lap geetha approximately 3 weeks prior presents to the ED with the complaint of ongoing shortness of breath. Patient was worked up and found to have bilateral lower lobe pulmonary emboli so an ICU evaluation was requested. On my initial examination, the patient was sitting up in bed comfortably with an oxygen saturation of 97% without using a nasal cannula and did not appear to be in any acute respiratory distress. Furthermore her SBP has remained 130mmHg and above since arriving to the ED. She underwent a 2decho earlier which did not show signs of significant Right heart strain pattern and showed a mild reduction in LVEF of 50%. At this time the patient does not require IV tPA or aggressive ICU level care warranting an admission to the ICU. She does require an inpatient admission for evaluation of her oxygen requirements with ambulation and obviously for treatment of her PE, which has already been started in the ED with a heparin IV drip. In the event that her clinical condition changes or deteriorates overnight, I will be available for re-evaluation as needed. Case discussed at length with Dr. Davila in the ED Thank you for this consult
[2017-01-17] MEDS ORDERED: Oxycodone/Acetaminophen 10/325 mg Tab PO STA (02:34)
[2017-01-17] MEDS: Heparin 25,000units in D5W 25,000 UNITS/250 ML BAG IV PRN (09:11)
--- NOTE | 2017-01-17 19:28 | CP.PCM.HP ---
History of Present Illness - History of Present Illness History of Present Illness: A 51 yr old female with PMHX asthma mild intermittent [attributes to work] came with c\o feeling SOB,unable to walk, started 2 weeks ,progressively getting worsening,unable to sleep came to ER ,ct CHEST SHOWED B\L PE. as per she has had cholecystectomy, stayed in hospital for week, was on SCD, did not use it properly went home,then onwards never felt right , felt like chest pain,did start using inhaler though she never used in last 4 yrs. denies fhx of lupus, sudden ,cancer\ clots. Present on Admission - Present on Admission Any Indicators Present on Admission: No Review of Systems - Constitutional Constitutional: Fatigue, Snoring. absent: Chills, Fever, Weight Loss - EENT Eyes: absent: Other Visual Disturbances Nose/Mouth/Throat: absent: Nasal Congestion, Dysphagia, Hoarsness, Sore Throat - Cardiovascular Cardiovascular: Chest Pain, Dyspnea on Exertion, Rapid Heart Rate. absent: Diaphoresis, Edema, Leg Edema - Respiratory Respiratory: absent: Cough, Hemoptysis, Wheezing, Chest Congestion, Excessive Mucous Production - Gastrointestinal Gastrointestinal: absent: Abdominal Pain, Dyspepsia, Hematochezia - Genitourinary Genitourinary: absent: Freq UTI - Musculoskeletal Musculoskeletal: absent: Abnormal Gait, Arthralgias, Limited Range of Motion - Neurological Neurological: absent: Abnormal Gait, Frequent Falls, Syncope - Psychiatric Psychiatric: absent: Behavioral Changes, Change in Appetite, Hallucinations - Hematologic/Lymphatic Hematologic: absent: Easy Bleeding, Lymphadenopathy Past Patient History - Infectious Disease Hx of Infectious Diseases: None - Tetanus Immunizations Tetanus Immunization: Unknown - Past Social History Smoking Status: Never Smoked - CARDIAC Hx Hypertension: Yes - PULMONARY Hx Asthma: Yes - NEUROLOGICAL Hx Neurological Disorder: No - HEENT Hx HEENT Problems: No - RENAL Hx Chronic Kidney Disease: No - ENDOCRINE/METABOLIC Hx Endocrine Disorders: No - HEMATOLOGICAL/ONCOLOGICAL Hx Hepatitis B: Yes - INTEGUMENTARY Hx Dermatological Problems: No - MUSCULOSKELETAL/RHEUMATOLOGICAL Hx Back Pain: Yes Hx Falls: No Hx Herniated Disk: Yes - GASTROINTESTINAL Hx Gall Bladder Disease: Yes (s/p cholecystectomy) - GENITOURINARY/GYNECOLOGICAL Hx Genitourinary Disorders: No - PSYCHIATRIC Hx Substance Use: No - SURGICAL HISTORY Hx Cholecystectomy: Yes (12/26/16) - ANESTHESIA Hx Anesthesia: Yes Hx Anesthesia Reactions: No Hx Malignant Hyperthermia: No Meds Allergies/Adverse Reactions: Allergies Allergy/AdvReac Type Severity Reaction Status Date / Time No Known Allergies Allergy Verified 12/21/16 15:08 Physical Exam - Constitutional Appears: No Acute Distress Additional comments: obese - Head Exam Head Exam: ATRAUMATIC, NORMAL INSPECTION, NORMOCEPHALIC - Eye Exam Eye Exam: EOMI, PERRL - ENT Exam ENT Exam: Mucous Membranes Moist, Normal Exam - Neck Exam Neck exam: Positive for: Tenderness. Negative for: Lymphadenopathy - Respiratory Exam Respiratory Exam: Clear to Auscultation Bilateral, NORMAL BREATHING PATTERN. absent: Wheezes - Cardiovascular Exam Cardiovascular Exam: REGULAR RHYTHM, +S1, +S2. absent: JVD, Systolic Murmur - GI/Abdominal Exam GI & Abdominal Exam: Normal Bowel Sounds, Soft. absent: Tenderness - Extremities Exam Extremities exam: Positive for: full ROM, normal inspection, pedal pulses present. Negative for: pedal edema, tenderness - Back Exam Back exam: NORMAL INSPECTION. absent: paraspinal tenderness - Neurological Exam Neurological exam: Alert, CN II-XII Intact, Normal Gait, Oriented x3 - Skin Skin Exam: Dry, Intact, Normal Color Results - Vital Signs Recent Vital Signs: Last Vital Signs Temp 98 F 01/17/17 17:44 Pulse 106 H 01/17/17 18:00 Resp 20 01/17/17 17:44 BP 124/70 01/17/17 17:44 Pulse Ox 96 01/17/17 06:00 - Labs Result Diagrams: 01/16/17 16:00 01/16/17 16:00 Labs: Laboratory Results - last 24 hr 01/17/17 01/17/17 01/17/17 01:00 08:30 09:37 ESR APTT 100.0 H* 53.5 H D-Dimer, Quantitative 5.29 H 01/17/17 01/17/17 11:30 15:00 ESR 8 APTT 43.2 H D-Dimer, Quantitative - EKG Data EKG Interpreted by: Other EKG shows normal: Sinus rhythm Rate: Normal - Imaging and Cardiology Chest x-ray Status: Report reviewed by me CT scan - chest Status: Report reviewed by me Assessment & Plan (1) Pulmonary embolism Status: Acute Comment: likley provoked. due to age- to get thrombophilia work up, needs colonoscopy\mammo as out pt. heparin drip. to ad coumadin 5 mg today. ECHO- mild RVSF reduced. d\w in detail. pulmnology on board (2) Diabetes Status: Acute Comment: BS above 200. denies hx of DM. hba1c. accuchecks. (3) Essential (primary) hypertension Status: Acute Comment: reactive \esential. to be monitored. hold BP meds due to PE Decision To Admit - Pt Status Changed To: Hospital Disposition Of: Inpatient Admission - Admit Certification Admit to Inpatient:: After my assessment, the patient will require hospitalization for at least two midnights. This is because of the severity of symptoms shown, intensity of services needed, and/or the medical risk in this patient being treated as an outpatient. - . Bed Request Type: Telemetry Admitting Physician: Richa Morse
[2017-01-17] MEDS ORDERED: Oxycodone/Acetaminophen 5/325 mg Tab PO STA (19:36)
[2017-01-17] MEDS: Oxycodone/Acetaminophen 10/325 mg Tab PO PRN (20:13)
[2017-01-17] MEDS: Budesonide 0.5 mg/2 ml Inhal Susp UD IH SCH (20:59)
[2017-01-17] MEDS: Arformoterol 15 mcg/2 ml Inh Sol IH SCH (20:59)
--- NOTE | 2017-01-17 22:36 | CON ---
DATE: 01/17/2017 SUBJECTIVE: The patient is a 51-year-old woman with a past history of asthma, hypertension, hepatitis B. She recently had a gall bladder taken out. In the last couple of days, she had progressive shortness of breath. She used her asthma inhaler. She had worsened symptoms and came to emergency room for shortness of breath. Having been seen in the ER, she was found to have multiple pulmonary emboli. She had a Doppler ultrasound in the right lower extremity last week and the etiology was never proven, I have to do that. A repeat venous Doppler is necessary. PAST MEDICAL HISTORY: Includes asthma, hypertension, hepatitis B and a lumbar radiculopathy. SURGICAL HISTORY: Includes a cholecystectomy at the end of November. SOCIAL HISTORY: The patient is a nonsmoker, has no alcohol use, no use of illicit drugs. No occupational exposure. No travel history. ALLERGIES: No known allergies. HOME MEDICATIONS: Percocet and hydrochlorothiazide with losartan. REVIEW OF SYSTEMS: Nothing other than that obtained above. The patient is overweight. Please note that the patient gives no history of long car or plane travel and no long bed confinement even though she recently had a cholecystectomy. There is no clear evidence in her history of familial hypocoagulopathy. Review of systems has been *------* from the chart, there were no additional findings other than that described above. She has had asthma where she uses an inhaler. She leaves it at home and uses it when necessary. She has lower back pain and recently cholecystectomy as described above. There are no known allergies. PHYSICAL EXAMINATION: GENERAL: She is resting comfortably, in no acute respiratory distress. VITAL SIGNS: Today, show temperature of 97.4, pulse of 102, blood pressure of 131/84, respiratory rate of 18, O2 saturation of 96. HEENT: Head, normocephalic, atraumatic. PERRLA. EOMs full. Conjunctiva pink. NECK: Supple, no JVD, no lymphadenopathy, no tenderness. CHEST: Some scattered wheezes throughout both lung warren. No rales or rhonchi are appreciated. CARDIOVASCULAR: Regular rhythm. No murmur, gallop or rub. ABDOMEN: Protuberant, obese. No organomegaly. EXTREMITIES: Revealed no clubbing, cyanosis or edema. She had pain in the right lower leg several days ago. Further evaluations with venous Dopplers are in order. NEUROLOGIC: No focal findings. SKIN: Dry without excoriation or rash. Lymphadenopathy is not present. LABORATORY STUDIES: On admission, white count 7700, hemoglobin 13.1, hematocrit 39.5, platelets 242,000. Sodium 139, potassium 3.6, chloride 103, BUN 17, creatinine 0.8, blood sugar *------*. IMPRESSION: 1. This is a 51-year-old obese woman, who developed shortness of breath 2 weeks after surgery. Etiology of pulmonary emboli is not clear. Please note that although the Helical CT of the chest was positive, there were also evidence of multiple bullous disease consistent with emphysema. 2. Asthma and probable emphysema. Due to the patient's status and anxiety, I would not want any anticholinergic at this time. We will start with just Brovana and budesonide and see if her symptoms resolve. PLAN: Continue treatment with heparin therapy, Brovana and budesonide. Consider anticholinergics once the PFT is done. The patient will require a D-dimer and a new venous Doppler to make sure that additional problems are not discovered. We will follow closely with you and decide on the need for further intervention based on these findings. Anurag Conrad MD
[2017-01-18 00:26] LABS: INR 1.03 (0.93-1.08); PARTIAL THROMBOPLASTIN TIME 59.3 Seconds (23.7-30.8); PROTHROMBIN TIME 11.1 Seconds (9.9-11.8)
[2017-01-18] MEDS: Heparin 25,000units in D5W 25,000 UNITS/250 ML BAG IV PRN ×2 (00:44→14:35)
--- NOTE | 2017-01-18 01:17 | CON ---
CARDIOLOGY CONSULTATION DATE: 01/17/2017 HISTORY: The patient is a 51-year-old woman who is status post cholecystectomy recently who presented with dyspnea. She was found to have bilateral pulmonary embolism on CT scan. The patient underwent emergency echocardiogram, which revealed an LV with an ejection fraction of 50%. In addition, there is reduced RV systolic function without significant pulmonary hypertension. PAST MEDICAL HISTORY: Includes hypertension, no diabetes mellitus. No previous cardiac history. SOCIAL HISTORY: The patient stopped smoking 15 years ago. REVIEW OF SYSTEMS: A 14-point review of systems was reviewed in detail. Other than the dyspnea, no other cardiac symptomatology is noted. PHYSICAL EXAMINATION: VITAL SIGNS: Blood pressure is 138/92, heart rate is 100, sinus tachycardia, the patient is afebrile. NECK: Negative JVD. LUNGS: Without rales. HEART: Revealed S1 and S2. EXTREMITIES: Without edema. LABORATORY DATA: Glucose today is 231. Hemoglobin is 13. PTT is 53. IMPRESSION: 1. Acute pulmonary embolism. 2. Bilateral thrombus seen on CT scan. 3. Obesity. 4. Hypertension. 5. Recent cholecystectomy. Given these findings, IV heparin has been ordered, will need to be therapeutic. There is no evidence for DVTs noted on Doppler of the lower extremities. I have discussed with the patient about her future needs of long-term anticoagulation as well as healthy lifestyle with weight loss. Quintin Odonnell MD
[2017-01-18] MEDS: Oxycodone/Acetaminophen 10/325 mg Tab PO PRN ×2 (04:16→17:47)
[2017-01-18 06:08] LABS: ARTERIAL BLOOD GAS HCO3 20.4 mmol/L (21-28); ARTERIAL BLOOD GAS HEMOGLOBIN 12.6 g/dL (11.7-17.4); ARTERIAL BLOOD GAS O2 CAPACITY 17.2 mL/dl (16-24); ARTERIAL BLOOD GAS O2 CONTENT 16.8 ML/dl (15-23); ARTERIAL BLOOD GAS O2 SAT 97.8 % (95-98); ARTERIAL BLOOD GAS PCO2 30 mm/Hg (35-45); ARTERIAL BLOOD GAS PH 7.44 (7.35-7.45); ARTERIAL BLOOD GAS TCO2 21.3 mmol.L (22-28)
[2017-01-18] MEDS: Arformoterol 15 mcg/2 ml Inh Sol IH SCH ×2 (07:28→19:51)
[2017-01-18] MEDS: Budesonide 0.5 mg/2 ml Inhal Susp UD IH SCH ×2 (07:29→19:51)
[2017-01-18 09:04] LABS: INR 1.06 (0.93-1.08); PROTHROMBIN TIME 11.4 Seconds (9.9-11.8)
--- NOTE | 2017-01-18 13:09 | PN ---
PULMONARY PROGRESS NOTE DATE: 01/18/2017 SUBJECTIVE: The patient was seen and examined at bedside. She is using nasal cannula and she is mildly short of breath. She is not coughing. She is receiving inhalation therapy with Brovana and budesonide, and she is on Coumadin. PHYSICAL EXAMINATION VITAL SIGNS: Temperature 97.4,pulse 81, respirations 20, pulse oximetry is 94, on nasal cannula. HEAD, EYES, EARS, NOSE, AND THROAT: Within normal limits. NECK: Supple with no jugular vein distention. CHEST: Symmetrical. HEART: S1 and S2. No S3. Regular. LUNGS: Markedly diminished breath sounds at both lung bases with some dullness at both lung bases for percussion. GASTROINTESTINAL: Soft and nontender. No organomegaly. EXTREMITIES: Within normal limits SKIN: Dry; intact LABORATORY DATA: Arterial blood gas pH of 7.44, pCO2 of 30 and pO2 of 77 on nasal cannula, which is improved. DIAGNOSES: 1. Bronchial asthma. 2. Emphysema. 3. Pulmonary emboli. PLAN: Continue with current medications Brovana, Budesonide. Continue with Heparin and monitor closely. Continue with O2. Follow up CXR and blood work as indicated. Will continue to follow patient closely. Malik Chatman MD [facility]
--- NOTE | 2017-01-18 13:10 | PN ---
DATE: 01/18/2017 SUBJECTIVE: The patient was seen and examined at bedside. She is wearing nasal cannula. She is still short of breath. Her oxygen saturation on room air is 94. PHYSICAL EXAMINATION VITAL SIGNS: Temperature is 97.5, pulse 84, respirations 20, and blood pressure 126/80. HEAD, EYES, EARS, NOSE, AND THROAT: Within normal limits. NECK: Supple with no jugular vein distention. CHEST: Symmetrical. HEART: S1 and S2. No S3. Regular. LUNGS: Markedly diminished breath sounds at both lung bases with some dullness at both lung bases for percussion. GASTROINTESTINAL: Soft and nontender. No organomegaly. EXTREMITIES: Within normal limits LABORATORY DATA: Today's arterial blood gas PH of 7.44, pCO2 of 30, and pO2 of 77. She is receiving Brovana and budesonide by inhalation as well of supplemental oxygen. ASSESSMENT: 1. Chronic obstructive pulmonary disease exacerbation. 2. Bronchial asthma. 3. Pulmonary emboli. 4. Hypoxia. PLAN: Will continue with current medication treatment plan. Follow up testing as indicated. Will follow patient closely. Malik Chatman MD [facility]
--- NOTE | 2017-01-18 13:59 | PN ---
CARDIOLOGY FOLLOWUP NOTE DATE: 01/18/2017 SUBJECTIVE: The patient's breathing is stable. PHYSICAL EXAMINATION: VITAL SIGNS: Blood pressure is 126/80 and the heart rate is in the 80s. NECK: Negative JVD. LUNGS: Without rales. HEART: Reveals S1 and S2. EXTREMITIES: Without edema. LABORATORY DATA: The glucose is 145. Her INR is 1.06 with the PTT of 65. IMPRESSION: 1. Acute pulmonary embolism. 2. Obesity. 3. Improved dyspnea symptoms. 4. History of cholecystectomy. 5. Hypertension. PLAN: Given these findings, the patient will need long-term anticoagulation. May need to be more aggressive in terms of Coumadin in order to get the patient therapeutic levels. Quintin Odonnell MD
--- NOTE | 2017-01-18 20:51 | CP.PCM.PN ---
Subjective - Date & Time of Evaluation Date of Evaluation: 01/18/17 Time of Evaluation: 09:00 - Subjective Subjective: hx of back,sees pain management. on heparin drip,Coumadin started last night [id number]. BS above 200 Objective - Vital Signs/Intake and Output Vital Signs (last 24 hours): Temp Pulse Resp BP Pulse Ox 98.2 F 86 19 140/97 H 98 01/18/17 17:21 01/18/17 18:00 01/18/17 17:21 01/18/17 17:21 01/18/17 17:21 Intake and Output: 01/18/17 01/19/17 18:59 06:59 Intake Total 250 Balance 250 - Medications Medications: Current Medications Arformoterol Tartrate (Brovana) 15 mcg [id number] Last Admin: 01/18/17 19:51 Dose: 15 mcg Budesonide (Pulmicort Respules) 0.5 mg [facility] Last Admin: 01/18/17 19:51 Dose: 0.5 mg Docusate Sodium (Colace) 100 mg PO TID [facility] Last Admin: 01/18/17 17:44 Dose: 100 mg Hydrochlorothiazide (Microzide) 12.5 mg PO DAILY [facility] Last Admin: 01/18/17 13:52 Dose: 12.5 mg Heparin Sodium/Dextrose (Heparin 25,000 Units/250ml In D5w) 25,000 units in 250 mls @ 20.086 mls/hr IV .[id number] PRN; Protocol; 14.82 UNITS/KG/HR PRN Reason: ADJUST RATE PER PROTOCOL Last Admin: 01/18/17 14:35 Dose: 13.82 units/kg/hr, 18.731 mls/hr Losartan Potassium (Cozaar) 50 mg PO DAILY [facility] Last Admin: 01/18/17 13:53 Dose: 50 mg Oxycodone/Acetaminophen (Percocet 10/325 Mg Tab) 1 tab PO Q8 PRN PRN Reason: Pain, moderate (4-7) Last Admin: 01/18/17 17:47 Dose: 1 tab Warfarin Sodium (Coumadin) 7.5 mg PO 1800 [facility] PRN Reason: Protocol Last Admin: 01/18/17 17:44 Dose: 7.5 mg - Labs Labs: PT 11.4 Seconds (9.9-11.8) 01/18/17 06:38 INR 1.06 (0.93-1.08) 01/18/17 06:38 APTT 65.1 Seconds (23.7-30.8) H 01/18/17 06:38 - Additional Findings Additional findings: Constitutional Appears: No Acute Distress Additional comments: obese - Head Exam Head Exam: ATRAUMATIC, NORMAL INSPECTION, NORMOCEPHALIC - Eye Exam Eye Exam: EOMI, PERRL - ENT Exam ENT Exam: Mucous Membranes Moist, Normal Exam - Neck Exam Neck exam: Positive for: Tenderness. Negative for: Lymphadenopathy - Respiratory Exam Respiratory Exam: Clear to Auscultation Bilateral, NORMAL BREATHING PATTERN. absent: Wheezes - Cardiovascular Exam Cardiovascular Exam: REGULAR RHYTHM, +S1, +S2. absent: JVD, Systolic Murmur - GI/Abdominal Exam GI & Abdominal Exam: Normal Bowel Sounds, Soft. absent: Tenderness - Extremities Exam Extremities exam: Positive for: full ROM, normal inspection, pedal pulses present. Negative for: pedal edema, tenderness - Back Exam Back exam: NORMAL INSPECTION. absent: paraspinal tenderness - Neurological Exam Neurological exam: Alert, CN II-XII Intact, Normal Gait, Oriented x3 - Skin Skin Exam: moist , Intact, Normal Color Assessment and Plan (1) Pulmonary embolism Status: Acute (2) Diabetes Status: Acute (3) Essential (primary) hypertension Status: Acute (4) Type 2 diabetes mellitus without complications Status: Acute - Assessment and Plan (Free Text) Plan: continue heparin\coumadin resume percocet colace newonset DM- diabetic education start on meds diet
[2017-01-19] MEDS: Heparin 25,000units in D5W 25,000 UNITS/250 ML BAG IV PRN ×2 (04:13→16:07)
[2017-01-19 06:56] LABS: INR 1.03 (0.93-1.08); PARTIAL THROMBOPLASTIN TIME 63.7 Seconds (23.7-30.8); PROTHROMBIN TIME 11.1 Seconds (9.9-11.8)
[2017-01-19] MEDS: Arformoterol 15 mcg/2 ml Inh Sol IH SCH ×2 (07:39→19:36)
[2017-01-19] MEDS: Budesonide 0.5 mg/2 ml Inhal Susp UD IH SCH ×2 (07:39→19:36)
--- NOTE | 2017-01-19 09:43 | PN ---
CARDIOLOGY FOLLOWUP DATE OF FOLLOWUP: 01/19/2017 SUBJECTIVE: The patient is comfortable, no shortness of breath, and no chest pain. PHYSICAL EXAMINATION VITAL SIGNS: Blood pressure is 122/72 and the heart rate is in the 80 s. The patient is afebrile. NECK: Negative JVD. LUNGS: Without rales HEART: Reveals S1 and S2.. EXTREMITIES: Without edema. LABORATORY DATA: PTT is 63 and INR is still 1.03, Chemistries; glucose is 145. IMPRESSION: 1. Acute pulmonary embolism. 2. Obesity. 3. History of cholecystectomy. 4. Hypertension. PLAN: Given these findings, the patient is hemodynamically stable. No arrhythmia is noted. We will DC telemetry today as per the patient's request and no arrhythmia for the past 72 hours. Quintin Odonnell MD
[2017-01-19] MEDS: Tiotropium 18 mcg Cap For Inhalation IH SCH (11:42)
--- NOTE | 2017-01-19 16:06 | PN ---
DATE: 01/19/2017 PULMONARY PROGRESS NOTE SUBJECTIVE: The patient has markedly improved since my last visit [address] Chatman had visited the patient yesterday. The patient is doing quite well. There is no shortness of breath. No cough expectoration. She is resting in bed right now, but is anxious to get going. PHYSICAL EXAMINATION: On physical exam, GENERAL: She is resting comfortably. Comfortable, no acute distress. VITAL SIGNS: As stated above, her vital signs are stable with an O2 sat of 96.2%, pulse of 82, blood pressure 122/72, respiratory rate is 18 on nasal cannula 2 L per minute. NECK: Supple. No JVD. No lymphadenopathy. CARDIOPULMONARY: Regular rhythm. S1, S2 without murmur, gallop, or rub. CHEST: Is essentially clear to percussion and auscultation. The wheezes that were there before have resolved. ABDOMEN: Soft, obese, protuberant. No mass, guarding, or organomegaly. EXTREMITIES: There are no clubbing, cyanosis, or edema. There is no Homans sign. NEUROLOGIC EXAM: No focal findings. SKIN: Dry. No rash or excoriation. LYMPHADENOPATHY: There is no lymphadenopathy present in the supraclavicular notch or in the cervical, inguinal, or axillary area. LABORATORY DATA: No new studies are available as of yet. We are still waiting some of the test ordered on admission. The patient has not been seen by hematology. No other etiology for the patient's PE has been identified. This needs to be evaluated further either prior to discharge or shortly thereafter. IMPRESSION: 1. Morbid obesity. 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 3. Bronchial asthma. 4. Pulmonary embolism. PLAN: The patient requires a PFT in addition of anticholinergic medication. We will do this at this time and not await the PFTs since the CAT scan is so distinctive for this problem. The patient is on Coumadin and this level must be obtained. If cost is not an issue, then suggest changing to one of the newer long-term anticoagulants. For followup regarding etiology of the pulmonary emboli such as hypercoagulable state evaluation, we would like to see the patient for her COPD upon discharge. Please feel free to contact me if I can be of further help. Anurag Conrad MD
--- NOTE | 2017-01-20 00:08 | CP.PCM.PN ---
Subjective - Date & Time of Evaluation Date of Evaluation: 01/19/17 Time of Evaluation: 11:00 - Subjective Subjective: on drip.protein c and S are high. Objective - Vital Signs/Intake and Output Vital Signs (last 24 hours): Temp Pulse Resp BP Pulse Ox 98.3 F 91 H 20 130/71 98 01/19/17 16:00 01/19/17 16:00 01/19/17 16:00 01/19/17 16:00 01/19/17 16:00 Intake and Output: 01/19/17 01/20/17 18:59 06:59 Intake Total 250 840 Balance 250 840 - Medications Medications: Current Medications Arformoterol Tartrate (Brovana) 15 mcg IH [id number] [facility] Last Admin: 01/19/17 19:36 Dose: 15 mcg Budesonide (Pulmicort Respules) 0.5 mg IH BIDRESP [facility] Last Admin: 01/19/17 19:36 Dose: 0.5 mg Docusate Sodium (Colace) 100 mg PO TID [facility] Last Admin: 01/19/17 17:44 Dose: 100 mg Hydrochlorothiazide (Microzide) 12.5 mg PO DAILY [facility] Last Admin: 01/19/17 09:25 Dose: 12.5 mg Heparin Sodium/Dextrose (Heparin 25,000 Units/250ml In D5w) 25,000 units in 250 mls @ 20.086 mls/hr IV .[id number] PRN; Protocol; 14.82 UNITS/KG/HR PRN Reason: ADJUST RATE PER PROTOCOL Last Admin: 01/19/17 16:07 Dose: 13.82 units/kg/hr, 18.731 mls/hr Losartan Potassium (Cozaar) 50 mg PO DAILY [facility] Last Admin: 01/19/17 09:25 Dose: 50 mg Metformin HCl (Glucophage Xr) 500 mg PO DAILY [facility] Last Admin: 01/19/17 09:27 Dose: 500 mg Oxycodone/Acetaminophen (Percocet 10/325 Mg Tab) 1 tab PO Q8 PRN PRN Reason: Pain, moderate (4-7) Last Admin: 01/18/17 17:47 Dose: 1 tab Sitagliptin Phosphate (Januvia) 50 mg PO DAILY [facility] Last Admin: 01/19/17 09:25 Dose: 50 mg Tiotropium [place] (Spiriva) 18 mcg IH DAILY [facility] Last Admin: 01/19/17 11:42 Dose: 18 mcg Warfarin Sodium (Coumadin) 7.5 mg PO 1800 [facility] PRN Reason: Protocol Last Admin: 01/19/17 17:43 Dose: 7.5 mg - Labs Labs: PT 11.1 Seconds (9.9-11.8) 01/19/17 06:00 INR 1.03 (0.93-1.08) 01/19/17 06:00 APTT 63.7 Seconds (23.7-30.8) H 01/19/17 06:00 Assessment and Plan (1) Pulmonary embolism Status: Acute (2) Diabetes Status: Acute (3) Essential (primary) hypertension Status: Acute (4) Type 2 diabetes mellitus without complications Status: Acute
[2017-01-20] MEDS: Heparin 25,000units in D5W 25,000 UNITS/250 ML BAG IV PRN ×2 (06:31→21:09)
[2017-01-20 07:40] LABS: INR 1.09 (0.93-1.08); PROTHROMBIN TIME 11.8 Seconds (9.9-11.8)
[2017-01-20 07:42] LABS: PARTIAL THROMBOPLASTIN TIME 74.9 Seconds (23.7-30.8)
[2017-01-20] MEDS: Budesonide 0.5 mg/2 ml Inhal Susp UD IH SCH ×2 (07:58→20:05)
[2017-01-20] MEDS: Arformoterol 15 mcg/2 ml Inh Sol IH SCH ×2 (07:58→20:05)
[2017-01-20] MEDS: Tiotropium 18 mcg Cap For Inhalation IH SCH (10:23)
--- NOTE | 2017-01-20 11:31 | PN ---
DATE: 01/20/2017 PULMONARY PROGRESS NOTE SUBJECTIVE: The patient was seen and examined at bedside. She states, she feels good. She has no shortness of breath and she is not wheezing. She was told not to ambulate in the meantime. She is receiving Brovana and budesonide by inhalations as well as Spiriva handheld inhaler. She is on heparin drip and she is started on Coumadin. PHYSICAL EXAMINATION GENERAL: She is awake, alert, in no acute distress. VITAL SIGNS: Temperature 98.3, pulse 90, respirations 20, pulse oximetry was not measured this morning. HEAD, EARS, NOSE, AND THROAT: Within normal limits. NECK: Supple with no jugular vein distention. CHEST: Symmetrical. HEART: S1, S2. No S3. Regular. LUNGS: Clear to auscultation, few end-expiratory wheezes anteriorly. GI: Abdomen soft, obese. No organomegaly. EXTREMITIES: No pedal edema. SKIN: Clear with no skin rashes and no cyanosis. NEUROLOGIC: No memory loss LABORATORY DATA: I reviewed today's laboratory data. Her PT is 11.8, INR is 1.09, and PTT is 74.9, which is therapeutic. ASSESSMENT: Pulmonary emboli, clinically improving; however, INR is subtherapeutic. The patient will continue Coumadin, which should increase the dosage, should followup regarding etiology of pulmonary emboli such as hypercoagulable state. The patient is being treated for chronic obstructive pulmonary disease and that component is improving. Malik Chatman MD MTDD
[2017-01-20] MEDS: Oxycodone/Acetaminophen 10/325 mg Tab PO PRN (23:02)
--- NOTE | 2017-01-21 00:15 | CP.PCM.PN ---
Subjective - Date & Time of Evaluation Date of Evaluation: 01/20/17 Time of Evaluation: 09:00 - Subjective Subjective: PT\INR- getting coumadin 7.5 mg.able to breath better,still dysnea on exertion. Objective - Vital Signs/Intake and Output Vital Signs (last 24 hours): Temp Pulse Resp BP Pulse Ox 98.9 F 90 22 122/60 94 L 01/20/17 18:00 01/20/17 18:00 01/20/17 18:00 01/20/17 18:00 01/20/17 18:00 Intake and Output: 01/20/17 01/21/17 18:59 06:59 Intake Total 480 610 Output Total 400 Balance 480 210 - Medications Medications: Current Medications Arformoterol Tartrate (Brovana) 15 mcg IH [id number] [facility] Last Admin: 01/20/17 20:05 Dose: 15 mcg Budesonide (Pulmicort Respules) 0.5 mg IH BIDRESP [facility] Last Admin: 01/20/17 20:05 Dose: 0.5 mg Docusate Sodium (Colace) 100 mg PO TID [facility] Last Admin: 01/20/17 17:46 Dose: 100 mg Hydrochlorothiazide (Microzide) 12.5 mg PO DAILY [facility] Last Admin: 01/20/17 10:23 Dose: 12.5 mg Heparin Sodium/Dextrose (Heparin 25,000 Units/250ml In D5w) 25,000 units in 250 mls @ 20.086 mls/hr IV .[id number] PRN; Protocol; 14.82 UNITS/KG/HR PRN Reason: ADJUST RATE PER PROTOCOL Last Admin: 01/20/17 21:09 Dose: 13.82 units/kg/hr, 18.731 mls/hr Losartan Potassium (Cozaar) 50 mg PO DAILY [facility] Last Admin: 01/20/17 10:22 Dose: 50 mg Metformin HCl (Glucophage Xr) 500 mg PO DAILY [facility] Last Admin: 01/20/17 10:23 Dose: 500 mg Oxycodone/Acetaminophen (Percocet 10/325 Mg Tab) 1 tab PO Q8 PRN PRN Reason: Pain, moderate (4-7) Last Admin: 01/20/17 23:02 Dose: 1 tab Sitagliptin Phosphate (Januvia) 50 mg PO DAILY [facility] Last Admin: 01/20/17 10:22 Dose: 50 mg Tiotropium [place] (Spiriva) 18 mcg IH DAILY [facility] Last Admin: 01/20/17 10:23 Dose: 18 mcg Warfarin Sodium (Coumadin) 7.5 mg PO 1800 [facility] PRN Reason: Protocol Last Admin: 01/20/17 17:46 Dose: 7.5 mg - Labs Labs: PT 11.8 Seconds (9.9-11.8) 01/20/17 06:30 INR 1.09 (0.93-1.08) H 01/20/17 06:30 APTT 74.9 Seconds (23.7-30.8) H* 01/20/17 06:30 Assessment and Plan (1) Pulmonary embolism Status: Acute (2) Diabetes Status: Acute (3) Essential (primary) hypertension Status: Acute (4) Type 2 diabetes mellitus without complications Status: Acute
--- NOTE | 2017-01-21 02:59 | CP.PCM.CON ---
History of Present Illness - History of Present Illness History of Present Illness: 51 year old female with a history of HTN, recent cholecystectomy, admitted with pulmonary embolism. The patient reports to upper abdominal pain and chest pain 1-2 days post surgery. She notes this pain was associated with progressive chest pain. Due to continued pain and shortness of breath she came to the hospital and underwent a CT angio of the chest which revealed B/L pulmonary emboli. An ultrasound of the lower extremities was negative for DVT. She is currently on a heparin drip and coumadin and reports to feeling better. Past medical history: HTN Past surgical history: Cholecystectomy Family history: Father had ND in his 50s Social history: Denies tobacco, alcohol, and illicit drug use. Allergies: NKA Review of systems: All remaining review of systems including HEENT, cardiovascular, respiratory, gastrointestinal, genitourinary, musculoskeletal, dermatologic, neurologic, and psychiatric are negative unless mentioned in the HPI. Past Patient History - Infectious Disease Hx of Infectious Diseases: None - Tetanus Immunizations Tetanus Immunization: Unknown - Past Social History Smoking Status: Never Smoked - CARDIAC Hx Hypertension: Yes - PULMONARY Hx Asthma: Yes - NEUROLOGICAL Hx Neurological Disorder: No - HEENT Hx HEENT Problems: No - RENAL Hx Chronic Kidney Disease: No - ENDOCRINE/METABOLIC Hx Endocrine Disorders: No - HEMATOLOGICAL/ONCOLOGICAL Hx Hepatitis B: Yes - INTEGUMENTARY Hx Dermatological Problems: No - MUSCULOSKELETAL/RHEUMATOLOGICAL Hx Back Pain: Yes Hx Falls: No Hx Herniated Disk: Yes - GASTROINTESTINAL Hx Gall Bladder Disease: Yes (s/p cholecystectomy) - GENITOURINARY/GYNECOLOGICAL Hx Genitourinary Disorders: No - PSYCHIATRIC Hx Substance Use: No - SURGICAL HISTORY Hx Cholecystectomy: Yes (12/26/16) - ANESTHESIA Hx Anesthesia: Yes Hx Anesthesia Reactions: No Hx Malignant Hyperthermia: No Meds Allergies/Adverse Reactions: Allergies Allergy/AdvReac Type Severity Reaction Status Date / Time No Known Allergies Allergy Verified 12/21/16 15:08 - Medications Medications: Current Medications Arformoterol Tartrate (Brovana) 15 mcg IH [id number] [facility] Last Admin: 01/20/17 20:05 Dose: 15 mcg Budesonide (Pulmicort Respules) 0.5 mg IH BIDRESP [facility] Last Admin: 01/20/17 20:05 Dose: 0.5 mg Docusate Sodium (Colace) 100 mg PO TID [facility] Last Admin: 01/20/17 17:46 Dose: 100 mg Hydrochlorothiazide (Microzide) 12.5 mg PO DAILY [facility] Last Admin: 01/20/17 10:23 Dose: 12.5 mg Heparin Sodium/Dextrose (Heparin 25,000 Units/250ml In D5w) 25,000 units in 250 mls @ 20.086 mls/hr IV .[id number] PRN; Protocol; 14.82 UNITS/KG/HR PRN Reason: ADJUST RATE PER PROTOCOL Last Admin: 01/20/17 21:09 Dose: 13.82 units/kg/hr, 18.731 mls/hr Losartan Potassium (Cozaar) 50 mg PO DAILY [facility] Last Admin: 01/20/17 10:22 Dose: 50 mg Metformin HCl (Glucophage Xr) 500 mg PO DAILY [facility] Last Admin: 01/20/17 10:23 Dose: 500 mg Oxycodone/Acetaminophen (Percocet 10/325 Mg Tab) 1 tab PO Q8 PRN PRN Reason: Pain, moderate (4-7) Last Admin: 01/20/17 23:02 Dose: 1 tab Sitagliptin Phosphate (Januvia) 50 mg PO DAILY [facility] Last Admin: 01/20/17 10:22 Dose: 50 mg Tiotropium [place] (Spiriva) 18 mcg IH DAILY [facility] Last Admin: 01/20/17 10:23 Dose: 18 mcg Warfarin Sodium (Coumadin) 7.5 mg PO 1800 [facility] PRN Reason: Protocol Last Admin: 01/20/17 17:46 Dose: 7.5 mg Physical Exam - Head Exam Head Exam: ATRAUMATIC - Eye Exam Eye Exam: Normal appearance - ENT Exam ENT Exam: Mucous Membranes Dry - Respiratory Exam Respiratory Exam: NORMAL BREATHING PATTERN - Cardiovascular Exam Cardiovascular Exam: +S1, +S2 - GI/Abdominal Exam GI & Abdominal Exam: Normal Bowel Sounds - Extremities Exam Extremities exam: Positive for: normal inspection - Neurological Exam Neurological exam: Oriented x3 - Psychiatric Exam Psychiatric exam: Normal Affect, Normal Mood - Skin Skin Exam: Warm Results - Vital Signs Recent Vital Signs: Last Vital Signs Temp 98.9 F 01/20/17 18:00 Pulse 90 01/20/17 18:00 Resp 22 01/20/17 18:00 BP 122/60 01/20/17 18:00 Pulse Ox 94 L 01/20/17 18:00 - Labs Result Diagrams: 01/16/17 16:00 01/16/17 16:00 Labs: Laboratory Results - last 24 hr 01/17/17 01/20/17 11:30 06:30 PT 11.8 INR 1.09 H APTT 74.9 H* Lupus Anticoagulant see note [place] PTT Screen 51 H dRVVT Mixing Study 22 dRVVT Mix Interpret Not indicated Hexagonal Phase Confirm Negative Assessment & Plan (1) Pulmonary embolism Assessment and Plan: suspect provoked from recent surgery LE dopplers negative for DVT on heparin drip and started on coumadin; goal INR 2-3 inherited thrombophilia work up sent discussed different anticoagulants, side effect profile and required monitoring. Pt may consider outpatient Pradaxa but wants to think about it as an outpatient ; ok for coumadin for now. Status: Acute (2) Coagulopathy Assessment and Plan: secondary to outpatient anticoagulation Thank you for this interesting consult. Status: Acute
[2017-01-21 07:12] LABS: INR 1.26 (0.93-1.08); PROTHROMBIN TIME 13.6 Seconds (9.9-11.8)
[2017-01-21] MEDS: Arformoterol 15 mcg/2 ml Inh Sol IH SCH ×2 (07:38→20:10)
[2017-01-21] MEDS: Budesonide 0.5 mg/2 ml Inhal Susp UD IH SCH ×2 (07:38→20:10)
[2017-01-21] MEDS: Tiotropium 18 mcg Cap For Inhalation IH SCH (09:57)
[2017-01-21] MEDS: Heparin 25,000units in D5W 25,000 UNITS/250 ML BAG IV PRN (10:41)
--- NOTE | 2017-01-21 10:55 | PN ---
PULMONARY PROGRESS NOTE DATE: 01/21/2017 SUBJECTIVE: The patient was seen and examined at bedside. She is receiving intravenous heparin as well as warfarin orally. She is receiving inhalation therapy with Brovana, budesonide, and she is also on Spiriva. PHYSICAL EXAMINATION: VITAL SIGNS: Temperature is 98, pulse is 90, respirations are 22, and pulse oximetry is 94% on room air. HEAD, EYES, EARS, NOSE, AND THROAT: Within normal limits. NECK: Supple with no jugular vein distention. CARDIOVASCULAR: S1 and S2. No S3. Regular. PULMONARY: Few expiratory wheezes bilaterally. GASTROINTESTINAL: Soft and nontender. Obese. No organomegaly. EXTREMITIES: No pedal edema. NEUROLOGIC: No focal deficits. SKIN: Clear with no skin rashes and no cyanosis. LABORATORY DATA: Her INR is 1.26. ASSESSMENT: 1. Pulmonary emboli. 2. Chronic obstructive pulmonary disease. 3. Bronchial asthma. 4. Diabetes mellitus. PLAN: Pulmonary emboli; however, INR is still subtherapeutic. She has to achieve a therapeutic INR and ordered for heparin to be discontinued and she can be discharged to be followed by her attending. Her pulmonary status is stable. Malik Chatman MD
[2017-01-21] MEDS: Oxycodone/Acetaminophen 10/325 mg Tab PO PRN (14:00)
[2017-01-21 16:37] LABS: JAK2 V617F NOT DETECTED
--- NOTE | 2017-01-21 22:16 | CP.PCM.PN ---
Subjective - Date & Time of Evaluation Date of Evaluation: 01/21/17 Time of Evaluation: 22:15 - Subjective Subjective: Patient was seen at bedside as she had little upset stomach. Complains of heart burn. Has no other complaints. Denies sob , chest pain, nausea, sweating. Medical record was reviewed. This 51 year old woman was admitted with sob, inability to walk, inability to sleep. Has PMH of mild intermittent asthma, HTN, back pain, obesity,cholecystectomy. Objective - Vital Signs/Intake and Output Vital Signs (last 24 hours): Temp Pulse Resp BP Pulse Ox 97.9 F 84 19 136/76 95 01/21/17 16:00 01/21/17 16:00 01/21/17 16:00 01/21/17 16:00 01/21/17 16:00 Intake and Output: 01/21/17 01/22/17 18:59 06:59 Intake Total 250 540 Balance 250 540 - Medications Medications: Current Medications Arformoterol Tartrate (Brovana) 15 mcg IH [id number] [facility] Last Admin: 01/21/17 20:10 Dose: 15 mcg Budesonide (Pulmicort Respules) 0.5 mg IH BIDRESP [facility] Last Admin: 01/21/17 20:10 Dose: 0.5 mg Docusate Sodium (Colace) 100 mg PO TID [facility] Last Admin: 01/21/17 17:05 Dose: 100 mg Hydrochlorothiazide (Microzide) 12.5 mg PO DAILY [facility] Last Admin: 01/21/17 09:17 Dose: 12.5 mg Heparin Sodium/Dextrose (Heparin 25,000 Units/250ml In D5w) 25,000 units in 250 mls @ 20.086 mls/hr IV .[id number] PRN; Protocol; 14.82 UNITS/KG/HR PRN Reason: ADJUST RATE PER PROTOCOL Last Admin: 01/21/17 10:41 Dose: 13.82 units/kg/hr, 18.731 mls/hr Losartan Potassium (Cozaar) 50 mg PO DAILY [facility] Last Admin: 01/21/17 09:17 Dose: 50 mg Metformin HCl (Glucophage Xr) 500 mg PO DAILY [facility] Last Admin: 01/21/17 09:58 Dose: 500 mg Sitagliptin Phosphate (Januvia) 50 mg PO DAILY [facility] Last Admin: 01/21/17 09:18 Dose: 50 mg Tiotropium [place] (Spiriva) 18 mcg IH DAILY [facility] Last Admin: 01/21/17 09:57 Dose: 18 mcg Warfarin Sodium (Coumadin) 10 mg PO 1800 [facility] PRN Reason: Protocol - Labs Labs: PT 13.6 Seconds (9.9-11.8) H 01/21/17 06:00 INR 1.26 (0.93-1.08) H 01/21/17 06:00 APTT 74.9 Seconds (23.7-30.8) H* 01/20/17 06:30 Micro Results 01/16/17 16:00 Blood-Venous Blood Culture - Final NO GROWTH AFTER 5 DAYS 01/16/17 16:00 Blood-Venous Gram Stain - Final TEST NOT PERFORMED 01/16/17 16:00 Blood-Venous Blood Culture - Final NO GROWTH AFTER 5 DAYS 01/16/17 16:00 Blood-Venous Gram Stain - Final TEST NOT PERFORMED Most Recent Lab Values WBC 7.7 10^3/ul (4.5-11.0) D 01/16/17 16:00 RBC 4.71 10^6/uL (3.5-6.1) 01/16/17 16:00 Hgb 13.1 gm/dL (12.0-16.0) 01/16/17 16:00 Hct 39.5 % (36.0-48.0) 01/16/17 16:00 MCV 83.9 fL (80.0-105.0) 01/16/17 16:00 MCH 27.8 pg (25.0-35.0) 01/16/17 16:00 MCHC 33.2 g/dl (31.0-37.0) 01/16/17 16:00 RDW 15.1 % (11.5-14.5) H 01/16/17 16:00 Plt Count 242 10^3/uL (120.0-450.0) 01/16/17 16:00 MPV 10.9 fl (7.0-11.0) 01/16/17 16:00 Gran % 74.0 % (50.0-68.0) H 01/16/17 16:00 Lymph % (Auto) 20.7 % (22.0-35.0) L 01/16/17 16:00 [place] % (Auto) 4.0 % (1.0-6.0) 01/16/17 16:00 Eos % (Auto) 1.0 % (1.5-5.0) L 01/16/17 16:00 Baso % (Auto) 0.3 % (0.0-3.0) 01/16/17 16:00 Gran # 5.71 (1.4-6.5) 01/16/17 16:00 Lymph # 1.6 (1.2-3.4) 01/16/17 16:00 [place] # 0.3 (0.1-0.6) 01/16/17 16:00 Eos # 0.1 (0.0-0.7) 01/16/17 16:00 Baso # 0.02 K/mm3 (0.0-2.0) 01/16/17 16:00 ESR 8 mm/hr (0.0-20.0) 01/17/17 11:30 Haptoglobin 384 mg/dL (43-212) H 01/17/17 11:30 PT 13.6 Seconds (9.9-11.8) H 01/21/17 06:00 INR 1.26 (0.93-1.08) H 01/21/17 06:00 APTT 111.9 Seconds (23.7-30.8) H* 01/21/17 21:15 D-Dimer, Quantitative 5.29 mg/L FEU (0-0.50) H 01/17/17 09:37 Lupus Anticoagulant see note 01/17/17 11:30 LA PTT Screen 51 sec (<=40) H 01/17/17 11:30 dRVVT Mixing Study 22 sec (<=45) 01/17/17 11:30 dRVVT Mix Interpret Not indicated 01/17/17 11:30 Hexagonal Phase Confirm Negative (Negative) 01/17/17 11:30 Protein C Antigen 122 % (70-140) 01/17/17 11:30 Protein C Activity >200 % (70-180) H 01/17/17 11:30 Protein S Activity 181 % (60-140) H 01/17/17 11:30 Antithrombin III Activ 110 % activity (80-120) 01/17/17 11:30 Factor V see note 01/17/17 11:30 pCO2 30 mm/Hg (35-45) L 01/18/17 05:55 pO2 77.0 mm/Hg (80-100) L 01/18/17 05:55 HCO3 20.4 mmol/L (21-28) L 01/18/17 05:55 ABG pH 7.44 (7.35-7.45) 01/18/17 05:55 ABG Total CO2 21.3 mmol.L (22-28) L 01/18/17 05:55 ABG O2 Saturation 97.8 % (95-98) 01/18/17 05:55 ABG O2 Content 16.8 ML/dl (15-23) 01/18/17 05:55 ABG Base Excess -2.8 mmol/L (-2.0-3.0) L 01/18/17 05:55 ABG Hemoglobin 12.6 g/dL (11.7-17.4) 01/18/17 05:55 ABG Carboxyhemoglobin 2.2 % (0.5-1.5) H 01/18/17 05:55 POC ABG HHb (Measured) 2.1 % (0-5) 01/18/17 05:55 ABG Methemoglobin 0.9 % (0.0-3.0) 01/18/17 05:55 ABG O2 Capacity 17.2 mL/dl (16-24) 01/18/17 05:55 Hgb O2 Saturation 94.7 % (95.0-98.0) L 01/18/17 05:55 FiO2 21.0 % 01/18/17 05:55 Sodium 139 mmol/L (132-148) 01/16/17 16:00 Potassium 3.6 mmol/L (3.6-5.0) 01/16/17 16:00 Chloride 103 mmol/L (95-110) 01/16/17 16:00 Carbon Dioxide 21 mmol/L (21-33) 01/16/17 16:00 Anion Gap 19 (10-20) 01/16/17 16:00 BUN 17 mg/dL (7-21) 01/16/17 16:00 Creatinine 0.8 mg/dL (0.5-1.4) 01/16/17 16:00 Est GFR ( Amer) > 60 01/16/17 16:00 Est GFR (Non-Af Amer) > 60 01/16/17 16:00 POC Glucose (mg/dL) 125 mg/dL (65-110) H 01/21/17 21:28 Random Glucose 231 mg/dL (70-110) H 01/16/17 16:00 Hemoglobin A1c 7.5 % (4.2-6.5) H 01/18/17 06:00 Calcium 9.4 mg/dL (8.4-10.5) 01/16/17 16:00 Total Bilirubin 0.5 mg/dL (0.2-1.3) 01/16/17 16:00 AST 24 U/L (15-39) 01/16/17 16:00 ALT 28 U/L (7-56) 01/16/17 16:00 Alkaline Phosphatase 146 U/L (38-133) H 01/16/17 16:00 Lactate Dehydrogenase 507 U/L (333-699) 01/16/17 16:00 Total Creatine Kinase 159 U/L (35-230) 01/16/17 16:00 Troponin I 0.08 ng/mL D 01/16/17 16:00 C-Reactive Prot, Quant 1.9 mg/dL (<0.8) H 01/17/17 11:30 NT-Pro-B Natriuret Pep 1630 pg/mL (0-450) H 01/16/17 16:00 Total Protein 8.0 g/dL (5.8-8.3) 01/16/17 16:00 Albumin 4.3 g/dL (3.0-4.8) 01/16/17 16:00 Globulin 3.7 gm/dL 01/16/17 16:00 Albumin/Globulin Ratio 1.1 (1.1-1.8) 01/16/17 16:00 Urine Color Yellow (YELLOW) 01/16/17 16:30 Urine Appearance Sl cloudy (CLEAR) 01/16/17 16:30 Urine pH 6.0 (4.7-8.0) 01/16/17 16:30 Ur Specific [place] 1.025 (1.005-1.035) 01/16/17 16:30 Urine Protein 30 mg/dL (<30 mg/dL) H 01/16/17 16:30 Urine Glucose (UA) 250 mg/dL (NEGATIVE) H 01/16/17 16:30 Urine Ketones Negative mg/dL (NEGATIVE) 01/16/17 16:30 Urine Blood Negative (NEGATIVE) 01/16/17 16:30 Urine Nitrate Negative (NEGATIVE) 01/16/17 16:30 Urine Bilirubin Negative (NEGATIVE) 01/16/17 16:30 Urine Urobilinogen 0.2 E.U./dL (<1 E.U./dL) 01/16/17 16:30 Ur Leukocyte Esterase Negative Lily/uL (NEGATIVE) 01/16/17 16:30 Urine RBC 0 - 2 /hpf (0-2) 01/16/17 16:30 Urine WBC 0 - 2 /hpf (0-6) 01/16/17 16:30 Ur Epithelial Cells Many /hpf (0-5) 01/16/17 16:30 Urine Bacteria Few (NEG) 01/16/17 16:30 Rheumatoid Factor 12 IU/mL (<14) 01/17/17 11:30 JAK2 [id number] Specimen Peripheral blood 01/17/17 11:30 JAK2 [id number] Not detected 01/17/17 11:30 JAK2 [id number] Review By see note 01/17/17 11:30 - Constitutional Appears: Well, No Acute Distress - Head Exam Head Exam: ATRAUMATIC, NORMAL INSPECTION, NORMOCEPHALIC Additional comments: Obese. - Eye Exam Eye Exam: Normal appearance - ENT Exam ENT Exam: Normal External Ear Exam - Neck Exam Neck Exam: Normal Inspection - Respiratory Exam Respiratory Exam: NORMAL BREATHING PATTERN - Cardiovascular Exam Cardiovascular Exam: absent: JVD - GI/Abdominal Exam GI & Abdominal Exam: absent: Distended - Rectal Exam Rectal Exam: Deferred - Exam Additional comments: Deferred. - Extremities Exam Extremities Exam: Normal Inspection - Back Exam Back Exam: NORMAL INSPECTION - Neurological Exam Neurological Exam: Alert, Oriented x3 - Psychiatric Exam Psychiatric exam: Normal Affect, Normal Mood - Skin Skin Exam: Normal Color Assessment and Plan - Assessment and Plan (Free Text) Assessment: Dyspepsia. B/L Pulmonary embolism. Essential HTN. Intermittent asthma. Obesity. Plan: Pepcid 20 mg PO STAT. Continue present management.
--- NOTE | 2017-01-21 22:53 | CP.PCM.PN ---
Subjective - Date & Time of Evaluation Date of Evaluation: 01/21/17 Time of Evaluation: 07:00 Objective - Vital Signs/Intake and Output Vital Signs (last 24 hours): Temp Pulse Resp BP Pulse Ox 97.9 F 84 19 136/76 95 01/21/17 16:00 01/21/17 16:00 01/21/17 16:00 01/21/17 16:00 01/21/17 16:00 Intake and Output: 01/21/17 01/22/17 18:59 06:59 Intake Total 250 540 Balance 250 540 - Medications Medications: Current Medications Arformoterol Tartrate (Brovana) 15 mcg IH [id number] [facility] Last Admin: 01/21/17 20:10 Dose: 15 mcg Budesonide (Pulmicort Respules) 0.5 mg IH BIDRESP [facility] Last Admin: 01/21/17 20:10 Dose: 0.5 mg Docusate Sodium (Colace) 100 mg PO TID [facility] Last Admin: 01/21/17 17:05 Dose: 100 mg Hydrochlorothiazide (Microzide) 12.5 mg PO DAILY [facility] Last Admin: 01/21/17 09:17 Dose: 12.5 mg Heparin Sodium/Dextrose (Heparin 25,000 Units/250ml In D5w) 25,000 units in 250 mls @ 20.086 mls/hr IV .[id number] PRN; Protocol; 14.82 UNITS/KG/HR PRN Reason: ADJUST RATE PER PROTOCOL Last Admin: 01/21/17 10:41 Dose: 13.82 units/kg/hr, 18.731 mls/hr Losartan Potassium (Cozaar) 50 mg PO DAILY [facility] Last Admin: 01/21/17 09:17 Dose: 50 mg Metformin HCl (Glucophage Xr) 500 mg PO DAILY [facility] Last Admin: 01/21/17 09:58 Dose: 500 mg Sitagliptin Phosphate (Januvia) 50 mg PO DAILY [facility] Last Admin: 01/21/17 09:18 Dose: 50 mg Tiotropium [place] (Spiriva) 18 mcg IH DAILY [facility] Last Admin: 01/21/17 09:57 Dose: 18 mcg Warfarin Sodium (Coumadin) 10 mg PO 1800 [facility] PRN Reason: Protocol - Labs Labs: PT 13.6 Seconds (9.9-11.8) H 01/21/17 06:00 INR 1.26 (0.93-1.08) H 01/21/17 06:00 APTT 111.9 Seconds (23.7-30.8) H* 01/21/17 21:15 Assessment and Plan (1) Pulmonary embolism Status: Acute (2) Diabetes Status: Acute (3) Essential (primary) hypertension Status: Acute (4) Type 2 diabetes mellitus without complications Status: Acute
[2017-01-22] MEDS ORDERED: Oxycodone/Acetaminophen 10/325 mg Tab PO STA ×3 (00:43→22:48)
[2017-01-22] MEDS: Heparin 25,000units in D5W 25,000 UNITS/250 ML BAG IV PRN ×3 (02:15→17:38)
[2017-01-22 06:45] LABS: HEMOGLOBIN 12.6 gm/dL (12.0-16.0); MEAN CORPUSCULAR HEMOGLOBIN 27.8 pg (25.0-35.0); MEAN CORPUSCULAR HGB CONC 33.4 g/dl (31.0-37.0); MEAN PLATELET VOLUME 10.9 fl (7.0-11.0); RBC 4.54 10^6/uL (3.5-6.1); WHITE BLOOD COUNT 9.9 10^3/ul (4.5-11.0)
[2017-01-22 06:54] LABS: INR 1.44 (0.93-1.08); PARTIAL THROMBOPLASTIN TIME 69.7 Seconds (23.7-30.8); PROTHROMBIN TIME 15.5 Seconds (9.9-11.8)
[2017-01-22] MEDS: Arformoterol 15 mcg/2 ml Inh Sol IH SCH ×2 (07:48→19:53)
[2017-01-22] MEDS: Budesonide 0.5 mg/2 ml Inhal Susp UD IH SCH ×2 (07:49→19:53)
[2017-01-22] MEDS: Tiotropium 18 mcg Cap For Inhalation IH SCH (10:34)
--- NOTE | 2017-01-22 11:07 | PN ---
DATE: 01/22/2017 SUBJECTIVE: The patient appears comfortable this morning. She is not short of breath at rest. She has no chest pain. PHYSICAL EXAMINATION VITAL SIGNS: Temperature 98.6, pulse 86, respirations 18 to 20, blood pressure 125/81, oxygen saturation on room air is 97%. HEENT: Normocephalic, atraumatic. NECK: No JVD. CARDIOVASCULAR: Positive S1, S2. No S3. LUNGS: Clear bilaterally. EXTREMITIES: Mild edema. No cyanosis, no clubbing. Calf are nontender to palpation. GI: Abdomen is soft, nontender, nondistended. Bowel sounds are positive. SKIN: No acute rash. NEUROLOGIC: Limited at the present time. IMPRESSION: 1. Pulmonary embolus. 2. Chronic obstructive pulmonary disease. 3. Bronchial asthma. 4. Diabetes mellitus. PLAN: The patient appears very comfortable this morning. She is not short of breath at rest. She has no chest pain. She states, she is feeling much much better overall. On physical exam, her lungs are clear. Oxygen saturation on room is now 97%. This patient remains on the heparin protocol plus Coumadin. Repeat a.m. labs are drawn and pending. Hematology evaluation and workup is noted. Clinical status of the patient is significantly improved--compared to the initial presentation. The patient is advised to increase her activity as tolerated. I will discuss the above with the attending physician. Alec Williamson MD MTDD
--- NOTE | 2017-01-22 16:29 | PN ---
DATE: 01/22/2017 SUBJECTIVE: The patient's breathing is stable, has no shortness of breath. PHYSICAL EXAMINATION VITAL SIGNS: Blood pressure 138/86, the heart rate in the 80s. NECK: Negative JVD. CARDIOPULMONARY: Heart, S1, S2. LUNGS: Without rales. EXTREMITIES: Without edema. LABORATORY DATA: Hemoglobin is 12.6. Chemistries, glucose 139, PTT is 69 with INR of 1.4. IMPRESSION: 1. Acute pulmonary embolism. 2. Diabetes mellitus. 3. Obesity. 4. History of cholecystectomy. PLAN: Given these findings, the patient needs full anticoagulation on Coumadin before discharge. I have asked the patient to get out of bed and begin walking around the room slowly. Quintin Odonnell MD
--- NOTE | 2017-01-22 18:44 | CP.PCM.PN ---
Subjective - Date & Time of Evaluation Date of Evaluation: 01/22/17 Time of Evaluation: 18:20 - Subjective Subjective: No complaints, was ambulating earlier. Coumadin increased to 10mg tonight. Objective - Vital Signs/Intake and Output Vital Signs (last 24 hours): Temp Pulse Resp BP Pulse Ox 97.9 F 78 20 125/79 96 01/22/17 16:00 01/22/17 16:00 01/22/17 16:00 01/22/17 16:00 01/22/17 16:00 Intake and Output: 01/22/17 01/22/17 06:59 18:59 Intake Total 1040 1175 Balance 1040 1175 - Medications Medications: Current Medications Arformoterol Tartrate (Brovana) 15 mcg IH [id number] [facility] Last Admin: 01/22/17 07:48 Dose: 15 mcg Budesonide (Pulmicort Respules) 0.5 mg IH BIDRESP [facility] Last Admin: 01/22/17 07:49 Dose: 0.5 mg Docusate Sodium (Colace) 100 mg PO TID [facility] Last Admin: 01/22/17 17:13 Dose: 100 mg Hydrochlorothiazide (Microzide) 12.5 mg PO DAILY [facility] Last Admin: 01/22/17 10:35 Dose: 12.5 mg Heparin Sodium/Dextrose (Heparin 25,000 Units/250ml In D5w) 25,000 units in 250 mls @ 20.086 mls/hr IV .[id number] PRN; Protocol; 14.82 UNITS/KG/HR PRN Reason: ADJUST RATE PER PROTOCOL Last Admin: 01/22/17 17:38 Dose: 10.84 units/kg/hr, 14.692 mls/hr Losartan Potassium (Cozaar) 50 mg PO DAILY [facility] Last Admin: 01/22/17 10:32 Dose: 50 mg Metformin HCl (Glucophage Xr) 500 mg PO DAILY [facility] Last Admin: 01/22/17 10:45 Dose: 500 mg Sitagliptin Phosphate (Januvia) 50 mg PO DAILY [facility] Last Admin: 01/22/17 10:00 Dose: Not Given Tiotropium [place] (Spiriva) 18 mcg IH DAILY [facility] Last Admin: 01/22/17 10:34 Dose: 18 mcg Warfarin Sodium (Coumadin) 10 mg PO 1800 [facility] PRN Reason: Protocol Last Admin: 01/22/17 17:13 Dose: 10 mg - Labs Labs: 01/22/17 06:05 PT 15.5 Seconds (9.9-11.8) H 01/22/17 06:05 INR 1.44 (0.93-1.08) H 01/22/17 06:05 APTT 80.0 Seconds (23.7-30.8) H* 01/22/17 12:15 - Head Exam Head Exam: ATRAUMATIC - Eye Exam Eye Exam: Normal appearance - ENT Exam ENT Exam: Mucous Membranes Dry - Respiratory Exam Respiratory Exam: NORMAL BREATHING PATTERN - Cardiovascular Exam Cardiovascular Exam: +S1, +S2 - GI/Abdominal Exam GI & Abdominal Exam: Normal Bowel Sounds - Extremities Exam Extremities Exam: Normal Inspection Assessment and Plan (1) Pulmonary embolism Assessment & Plan: ?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
--- NOTE | 2017-01-22 20:24 | CP.PCM.PN ---
Subjective - Date & Time of Evaluation Date of Evaluation: 01/21/17 Objective - Vital Signs/Intake and Output Vital Signs (last 24 hours): Temp Pulse Resp BP Pulse Ox 97.9 F 78 20 125/79 96 01/22/17 16:00 01/22/17 16:00 01/22/17 16:00 01/22/17 16:00 01/22/17 16:00 Intake and Output: 01/22/17 01/23/17 18:59 06:59 Intake Total 1175 Balance 1175 - Medications Medications: Current Medications Arformoterol Tartrate (Brovana) 15 mcg IH [id number] [facility] Last Admin: 01/22/17 19:53 Dose: 15 mcg Budesonide (Pulmicort Respules) 0.5 mg IH BIDRESP [facility] Last Admin: 01/22/17 19:53 Dose: 0.5 mg Docusate Sodium (Colace) 100 mg PO TID [facility] Last Admin: 01/22/17 17:13 Dose: 100 mg Hydrochlorothiazide (Microzide) 12.5 mg PO DAILY [facility] Last Admin: 01/22/17 10:35 Dose: 12.5 mg Heparin Sodium/Dextrose (Heparin 25,000 Units/250ml In D5w) 25,000 units in 250 mls @ 20.086 mls/hr IV .[id number] PRN; Protocol; 14.82 UNITS/KG/HR PRN Reason: ADJUST RATE PER PROTOCOL Last Admin: 01/22/17 17:38 Dose: 10.84 units/kg/hr, 14.692 mls/hr Losartan Potassium (Cozaar) 50 mg PO DAILY [facility] Last Admin: 01/22/17 10:32 Dose: 50 mg Metformin HCl (Glucophage Xr) 500 mg PO DAILY [facility] Last Admin: 01/22/17 10:45 Dose: 500 mg Sitagliptin Phosphate (Januvia) 50 mg PO DAILY [facility] Last Admin: 01/22/17 10:00 Dose: Not Given Tiotropium [place] (Spiriva) 18 mcg IH DAILY [facility] Last Admin: 01/22/17 10:34 Dose: 18 mcg Warfarin Sodium (Coumadin) 10 mg PO 1800 [facility] PRN Reason: Protocol Last Admin: 01/22/17 17:13 Dose: 10 mg - Labs Labs: 01/22/17 06:05 PT 15.5 Seconds (9.9-11.8) H 01/22/17 06:05 INR 1.44 (0.93-1.08) H 01/22/17 06:05 APTT 80.0 Seconds (23.7-30.8) H* 01/22/17 12:15 Assessment and Plan (1) Pulmonary embolism Status: Acute (2) Diabetes Status: Acute (3) Essential (primary) hypertension Status: Acute (4) Type 2 diabetes mellitus without complications Status: Acute
--- NOTE | 2017-01-22 20:25 | CP.PCM.PN ---
Objective - Vital Signs/Intake and Output Vital Signs (last 24 hours): Temp Pulse Resp BP Pulse Ox 97.9 F 78 20 125/79 96 01/22/17 16:00 01/22/17 16:00 01/22/17 16:00 01/22/17 16:00 01/22/17 16:00 Intake and Output: 01/22/17 01/23/17 18:59 06:59 Intake Total 1175 Balance 1175 - Medications Medications: Current Medications Arformoterol Tartrate (Brovana) 15 mcg IH [id number] [facility] Last Admin: 01/22/17 19:53 Dose: 15 mcg Budesonide (Pulmicort Respules) 0.5 mg IH BIDRESP [facility] Last Admin: 01/22/17 19:53 Dose: 0.5 mg Docusate Sodium (Colace) 100 mg PO TID [facility] Last Admin: 01/22/17 17:13 Dose: 100 mg Hydrochlorothiazide (Microzide) 12.5 mg PO DAILY [facility] Last Admin: 01/22/17 10:35 Dose: 12.5 mg Heparin Sodium/Dextrose (Heparin 25,000 Units/250ml In D5w) 25,000 units in 250 mls @ 20.086 mls/hr IV .[id number] PRN; Protocol; 14.82 UNITS/KG/HR PRN Reason: ADJUST RATE PER PROTOCOL Last Admin: 01/22/17 17:38 Dose: 10.84 units/kg/hr, 14.692 mls/hr Losartan Potassium (Cozaar) 50 mg PO DAILY [facility] Last Admin: 01/22/17 10:32 Dose: 50 mg Metformin HCl (Glucophage Xr) 500 mg PO DAILY [facility] Last Admin: 01/22/17 10:45 Dose: 500 mg Sitagliptin Phosphate (Januvia) 50 mg PO DAILY [facility] Last Admin: 01/22/17 10:00 Dose: Not Given Tiotropium [place] (Spiriva) 18 mcg IH DAILY [facility] Last Admin: 01/22/17 10:34 Dose: 18 mcg Warfarin Sodium (Coumadin) 10 mg PO 1800 [facility] PRN Reason: Protocol Last Admin: 01/22/17 17:13 Dose: 10 mg - Labs Labs: 01/22/17 06:05 PT 15.5 Seconds (9.9-11.8) H 01/22/17 06:05 INR 1.44 (0.93-1.08) H 01/22/17 06:05 APTT 80.0 Seconds (23.7-30.8) H* 01/22/17 12:15 Assessment and Plan (1) Pulmonary embolism Status: Acute (2) Diabetes Status: Acute (3) Essential (primary) hypertension Status: Acute (4) Type 2 diabetes mellitus without complications Status: Acute
[2017-01-23] MEDS: Arformoterol 15 mcg/2 ml Inh Sol IH SCH ×2 (08:00→20:01)
[2017-01-23] MEDS: Budesonide 0.5 mg/2 ml Inhal Susp UD IH SCH ×2 (08:00→20:01)
[2017-01-23] MEDS: Tiotropium 18 mcg Cap For Inhalation IH SCH (09:29)
[2017-01-23] MEDS: Heparin 25,000units in D5W 25,000 UNITS/250 ML BAG IV PRN (11:02)
--- NOTE | 2017-01-23 12:25 | PN ---
DATE: 01/23/2017 SUBJECTIVE: The patient appears very comfortable at rest. She is not short of breath. PHYSICAL EXAMINATION: VITAL SIGNS: Temperature 97.9, pulse is 78, respirations 18, blood pressure 125/79, oxygen saturation on room air is 96%. HEENT: Normocephalic and atraumatic. NECK: No JVD. CARDIOVASCULAR: Positive S1 and S2. No S3. LUNGS: Clear bilaterally. EXTREMITIES: Mild edema. No cyanosis, no clubbing. Calves are nontender to palpation. GASTROINTESTINAL: Abdomen is soft, nontender and nondistended. Bowel sounds are positive. SKIN: No acute rash. NEUROLOGIC: Limited at the present time. IMPRESSION: 1. Pulmonary embolism. 2. Chronic obstructive pulmonary disease. 3. Bronchial asthma. 4. Diabetes mellitus. PLAN: The patient appears very comfortable this morning. She is not short of breath at rest. She has no chest pain. She does state that feeling much better overall. On physical exam, her lungs remain clear. Oxygen saturation on room air is 96%. The patient remains on the heparin protocol plus Coumadin. Repeat a.m. labs are pending. Hematology evaluation is ongoing. Input by Dr. Lawrence is noted. Clinical status of the patient is significantly improved overall. I will discuss the above with the attending physician. Alec Williamson MD [facility]ITALRayshawn
--- NOTE | 2017-01-23 23:11 | CP.PCM.PN ---
Subjective - Date & Time of Evaluation Date of Evaluation: 01/23/17 Objective - Vital Signs/Intake and Output Vital Signs (last 24 hours): Temp Pulse Resp BP Pulse Ox 97.5 F L 91 H 20 164/92 H 95 01/23/17 16:00 01/23/17 16:00 01/23/17 16:00 01/23/17 16:00 01/23/17 16:00 Intake and Output: 01/23/17 01/24/17 18:59 06:59 Intake Total 250 540 Balance 250 540 - Medications Medications: Current Medications Arformoterol Tartrate (Brovana) 15 mcg IH [id number] [facility] Last Admin: 01/23/17 20:01 Dose: 15 mcg Budesonide (Pulmicort Respules) 0.5 mg IH BIDRESP [facility] Last Admin: 01/23/17 20:01 Dose: 0.5 mg Docusate Sodium (Colace) 100 mg PO TID [facility] Last Admin: 01/23/17 17:16 Dose: 100 mg Hydrochlorothiazide (Microzide) 12.5 mg PO DAILY [facility] Last Admin: 01/23/17 09:29 Dose: 12.5 mg Heparin Sodium/Dextrose (Heparin 25,000 Units/250ml In D5w) 25,000 units in 250 mls @ 20.086 mls/hr IV .[id number] PRN; Protocol; 14.82 UNITS/KG/HR PRN Reason: ADJUST RATE PER PROTOCOL Last Admin: 01/23/17 11:02 Dose: 10.84 units/kg/hr, 14.692 mls/hr Losartan Potassium (Cozaar) 50 mg PO DAILY [facility] Last Admin: 01/23/17 09:28 Dose: 50 mg Metformin HCl (Glucophage Xr) 500 mg PO DAILY [facility] Last Admin: 01/23/17 09:29 Dose: 500 mg Sitagliptin Phosphate (Januvia) 50 mg PO DAILY [facility] Last Admin: 01/23/17 09:32 Dose: Not Given Tiotropium Mellen (Spiriva) 18 mcg IH DAILY [facility] Last Admin: 01/23/17 09:29 Dose: 18 mcg Warfarin Sodium (Coumadin) 10 mg PO 1800 [place] PRN Reason: Protocol Last Admin: 01/23/17 17:17 Dose: 10 mg - Labs Labs: 01/22/17 06:05 PT 15.5 Seconds (9.9-11.8) H 01/22/17 06:05 INR 1.44 (0.93-1.08) H 01/22/17 06:05 APTT 72.7 Seconds (23.7-30.8) H* 01/23/17 06:00 Assessment and Plan (1) Pulmonary embolism Status: Acute (2) Diabetes Status: Acute (3) Essential (primary) hypertension Status: Acute (4) Type 2 diabetes mellitus without complications Status: Acute
[2017-01-24 00:29] LABS: PHOSPHATIDYLSERINE AB IGG <10 U/mL (<10); PHOSPHATIDYLSERINE AB IGM <25 U/mL (<25)
[2017-01-24 05:29] LABS: B2 GLYCOPROTEIN I AB(IGA) <9 SAU (<=20); B2 GLYCOPROTEIN I AB(IGG) <9 SGU (<=20); B2 GLYCOPROTEIN I AB(IGM) <9 SMU (<=20)
[2017-01-24] MEDS: Heparin 25,000units in D5W 25,000 UNITS/250 ML BAG IV PRN ×2 (06:55→08:10)
[2017-01-24 07:04] LABS: INR 2.44 (0.93-1.08); PROTHROMBIN TIME 26.4 Seconds (9.9-11.8)
[2017-01-24 07:09] LABS: PARTIAL THROMBOPLASTIN TIME 113.9 Seconds (23.7-30.8)
[2017-01-24] MEDS: Arformoterol 15 mcg/2 ml Inh Sol IH SCH (08:00)
[2017-01-24] MEDS: Budesonide 0.5 mg/2 ml Inhal Susp UD IH SCH (08:00)
[2017-01-24 08:35] VITALS: PULSE 92
[2017-01-24] MEDS: Tiotropium 18 mcg Cap For Inhalation IH SCH (09:19)
[2017-01-24 10:14] VITALS: BP 120/85; RESP 14; TEMP 98.6; O2SAT 99
[2017-01-24 12:49] LABS: CARDIOLIPIN AB (IGA) <11 APL (<=11); CARDIOLIPIN AB (IGG) <14 GPL (<=14); CARDIOLIPIN AB (IGM) <12 MPL (<=12)
--- NOTE | 2017-01-24 13:03 | PN ---
DATE: 01/24/2017 SUBJECTIVE: The patient appears very comfortable this morning. She is out of bed, sitting in the chair. She is not short of breath. PHYSICAL EXAMINATION: VITAL SIGNS: Temperature is 97.5, pulse at the present time is 80, respirations 18, blood pressure 164/92, oxygen saturation on room air is 95% to 96%. HEENT: Normocephalic, atraumatic. NECK: No JVD. CARDIOVASCULAR: Positive S1 and S2. No S3. LUNGS: Clear bilaterally. EXTREMITIES: Mild edema, no cyanosis, no clubbing. Calves are nontender to palpation. GASTROINTESTINAL: Abdomen is soft, nontender, nondistended. Bowel sounds are positive. SKIN: No acute rash. NEUROLOGIC: Limited at the present time. IMPRESSION: 1. Pulmonary embolism. 2. Chronic obstructive pulmonary disease. 3. Bronchial asthma. 4. Diabetes mellitus. PLAN: The patient appears very comfortable this morning. She is not short of breath at rest. She has no chest pain. She does state that she is feeling much, much better overall. On physical exam, her lungs remain clear. Oxygen saturation on room air is 95% to 96%. The patient remains on the heparin protocol plus Coumadin. Repeat morning labs are pending. Hopefully, the prothrombin time will be in a therapeutic range. I would continue with the hematology evaluation. Input by Dr. Lawrence is noted. Clinical status of the patient has significantly improved overall. I will discuss the above with the attending physician. Alec Williamson MD MTDD
[2017-01-24 13:09] LABS: PHOSPHATIDYLSERINE AB IGA <20 U/mL (<20)
== END 2017-01-24 15:06 | disposition home or self-care (01) | DRG 176 ==
LOC: ED 15:00 → ERH 18:05 → 2RNO 01-17 00:24 → 3RSO 01-19 13:53
PROVIDERS: ADMIT Internal Medicine; ATTEND Internal Medicine
PROC: 3E033GC Introduction of Other Therapeutic Substance into Peripheral Vein, Percutaneous Approach (ICD-10-PCS; 2017-01-16)
PROC: 3E0F7GC Introduction of Other Therapeutic Substance into Respiratory Tract, Via Natural or Artificial Opening (ICD-10-PCS; principal; 2017-01-17)
DX: I26.99 Other pulmonary embolism without acute cor pulmonale (principal); Z68.43 Body mass index [BMI] 50.0-59.9, adult; J44.1 Chronic obstructive pulmonary disease with (acute) exacerbation; B19.10 Unspecified viral hepatitis B without hepatic coma; E66.01 Morbid (severe) obesity due to excess calories; I10 Essential (primary) hypertension; R09.02 Hypoxemia; M54.16 Radiculopathy, lumbar region; J45.20 Mild intermittent asthma, uncomplicated; E11.9 Type 2 diabetes mellitus without complications; F41.9 Anxiety disorder, unspecified; G47.00 Insomnia, unspecified; R26.2 Difficulty in walking, not elsewhere classified; Z90.49 Acquired absence of other specified parts of digestive tract; Z87.891 Personal history of nicotine dependence; Z82.49 Family history of ischemic heart disease and other diseases of the circulatory system; Z83.3 Family history of diabetes mellitus

== ENCOUNTER 2017-01-30 11:50 | Emergency (ER) | payer OTHER ==
[2017-01-30 12:02] VITALS: RESP 18; TEMP 98.3; BMI 51.3
[2017-01-30] MEDS ORDERED: guaiFENesin-Codeine 100-10mg/5ml Syrup (5 ml) UD PO STA (12:14)
--- NOTE | 2017-01-30 12:14 | ED PDOC ---
Arrival/HPI - General Time Seen by Provider: 01/30/17 11:55 Historian: Patient - History of Present Illness Narrative History of Present Illness (Text): 01/30/17 12:05 A 51 year old female, whose past medical history includes asthma, recent PE, HTN , diabetes and cholecystectomy about 5 weeks ago, presents to the emergency department complaining of cold like symptoms for the past 3-4 days. Patient reports nasal congestion and a mild productive cough. Patient notes mild shortness of breath but says it is much improved since her recent hospitalization for her PE. She denies any fever, chills, nausea, vomiting, abdominal pain, chest pain, lower extremity swelling, vision changes or any other complaints. Patient recently hospitalized for pulmonary embolism 2 weeks ago and placed on Coumadin. PMD: Dr. Lawrence Time/Duration: Other (3-4 days) Symptom Course: Unchanged Quality: Other Context: Home Past Medical History - Provider Review Nursing Documentation Reviewed: Yes - Infectious Disease Hx of Infectious Diseases: None - Tetanus Immunization Tetanus Immunization: Unknown - Cardiac Hx Hypertension: Yes - Pulmonary Hx Asthma: Yes - Neurological Hx Neurological Disorder: No - HEENT Hx HEENT Disorder: No - Renal Hx Renal Disorder: No - Endocrine/Metabolic Hx Endocrine Disorders: No - Hematological/Oncological Hx Hepatitis B: Yes - Integumentary Hx Dermatological Disorder: No - Musculoskeletal/Rheumatological Hx Back Pain: Yes Hx Falls: No Hx Herniated Disk: Yes - Gastrointestinal Hx Gall Bladder Disease: Yes (s/p cholecystectomy) - Genitourinary/Gynecological Hx Genitourinary Disorders: No - Psychiatric Hx Substance Use: No - Past Surgical History Past Surgical History: No Previous - Surgical History Hx Cholecystectomy: Yes (12/26/16) - Anesthesia Hx Anesthesia: Yes Hx Anesthesia Reactions: No Hx Malignant Hyperthermia: No - Suicidal Assessment Feels Threatened In Home Enviroment: No Family/Social History - Physician Review Nursing Documentation Reviewed: Yes Family/Social History: No Known Family HX Smoking Status: Never Smoked Hx Alcohol Use: No Hx Substance Use: No Hx Substance Use Treatment: No Allergies/Home Meds Allergies/Adverse Reactions: Allergies No Known Allergies Allergy (Verified 01/30/17 12:13) Home Medications: Home Meds Medication Instructions Recorded Confirmed HCTZ/Losartan Potassium [Hyzaar 1 tab PO DAILY 12/21/16 01/30/17 12.5 mg-50 mg] Review of Systems - Physician Review All systems were reviewed & negative as marked: Yes - Review of Systems Constitutional: absent: Fevers, Night Sweats Eyes: absent: Vision Changes ENT: Sinus Congestion Respiratory: SOB (mild), Cough, Sputum Cardiovascular: absent: Chest Pain, Edema Gastrointestinal: absent: Abdominal Pain, Nausea, Vomiting Physical Exam Vital Signs Reviewed: Yes Vital Signs Temp Pulse Resp BP Pulse Ox 01/30/17 14:33 90 18 131/74 95 01/30/17 12:01 98.3 F 99 H 18 123/73 95 Temperature: Afebrile Blood Pressure: Normal Pulse: Tachycardic Respiratory Rate: Normal Appearance: Positive for: Non-Toxic, Comfortable, Other (Obese white female) Pain Distress: None Mental Status: Positive for: Alert and Oriented X 3 - Systems Exam Head: Present: Atraumatic, Normocephalic Pupils: Present: PERRL Conjunctiva: Present: Normal Mouth: Present: Moist Mucous Membranes Pharnyx: Present: Normal. No: ERYTHEMA, EXUDATE Respiratory/Chest: Present: Wheezes (Mild wheezing), Decreased Breath Sounds, Rhonchi (Scattered rhonchi). No: Respiratory Distress, Accessory Muscle Use Cardiovascular: Present: Regular Rate and Rhythm, Normal S1, S2. No: Murmurs Abdomen: Present: Normal Bowel Sounds. No: Tenderness, Distention, Peritoneal Signs Upper Extremity: Present: Normal Inspection. No: Cyanosis, Edema Lower Extremity: Present: Normal Inspection. No: Edema Neurological: Present: GCS=15, CN II-XII Intact, Speech Normal Skin: Present: Warm, Dry, Normal Color. No: Rashes Psychiatric: Present: Alert, Oriented x 3, Normal Insight, Normal Concentration Medical Decision Making ED Course and Treatment: 01/30/17 12:05 Impression: A 51 year old female with a productive cough, nasal congestion and mild shortness of breath. Plan is to check INR, as well as, other labs, obtain chest xray and administer steroids and nebulizer. Differential Diagnosis included but are not limited to: Asthma vs. URI vs. Bronchitis vs. Less likely PE Plan: -- Chest xray -- Labs -- Robitussin, Atrovent, Xopenex and Solumedrol -- Reassess and disposition Prior Visits: Notes and results from previous visits were reviewed. Patient last seen in the ED on 01/16/17 and hospitalized for pulmonary embolism. Progress Notes: Report Date : 01/30/2017 13:41:46 Procedure: Chest xray Dictator : Randy Kilgore MD IMPRESSION: No active disease. 01/30/17 14:57 Patient with noted history. Her labs show an INR that is slightly therapeutic at 3.07; she says she is scheduled to speak with her popcorn vendor tomorrow about her coumadin dosing. Given today's INR, PE recurrence is highly unlikely. History is more consistent with URI with asthma developing. Will d/ c on steroids, cough syrup, albuterol, and flonase. Other labs today and CXR are unremarkable. 01/30/17 15:00 Repeat vitals are normal and patient is feeling better - will d/c. - Lab Interpretations Lab Results: 01/30/17 13:50 01/30/17 13:50 Lab Results 01/30/17 13:50: Sodium 133, Potassium 3.2 L, Chloride 100, Carbon Dioxide 21, Anion Gap 15, BUN 13, Creatinine 0.8, Est GFR ( Amer) > 60, Est GFR (Non- Af Amer) > 60, Random Glucose 131 H, Calcium 9.2, Magnesium 1.8, Total Bilirubin 0.4, AST 22, ALT 33, Alkaline Phosphatase 117, Lactate Dehydrogenase 482, Total Creatine Kinase 123, Troponin I < 0.01 D, NT-Pro-B Natriuret Pep 187 , Total Protein 7.6, Albumin 4.1, Globulin 3.5, Albumin/Globulin Ratio 1.2, Lipase 170 01/30/17 13:50: PT 33.2 H*, INR 3.07 H, APTT 42.9 H 01/30/17 13:50: WBC 5.5 D, RBC 4.24, Hgb 11.5 L, Hct 34.5 L, MCV 81.4, MCH 27.1 , MCHC 33.3, RDW 15.0 H, Plt Count 276, MPV 10.3, Gran % 77.1 H, Lymph % (Auto) 14.3 L, Harper % (Auto) 6.4 H, Eos % (Auto) 1.8, Baso % (Auto) 0.4, Gran # 4.22, Lymph # 0.8 L, Harper # 0.4, Eos # 0.1, Baso # 0.02 I have reviewed the lab results: Yes - RAD Interpretation Radiology Orders: 01/30/17 12:11 CHEST PORTABLE [RAD] Stat - Medication Orders Current Medication Orders: Discontinued Medications Guaifenesin/Codeine Phosphate (Robitussin W/Codeine) 10 ml PO ONCE STA Stop: 01/30/17 12:15 Last Admin: 01/30/17 12:49 Dose: 10 ml Ipratropium Center (Atrovent) 0.5 mg IH STAT STA Stop: 01/30/17 12:16 Last Admin: 01/30/17 12:49 Dose: 0.5 mg Levalbuterol HCl (Xopenex) 1.25 mg IH STAT STA Stop: 01/30/17 12:16 Last Admin: 01/30/17 12:49 Dose: 1.25 mg Methylprednisolone (Solu-Medrol) 125 mg IVP STAT STA Stop: 01/30/17 12:15 Last Admin: 01/30/17 12:49 Dose: 125 mg - Scribe Statement The provider has reviewed the documentation as recorded by the Bari Canales Provider Scribe Attestation: All medical record entries made by the Bari were at my direction and personally dictated by me. I have reviewed the chart and agree that the record accurately reflects my personal performance of the history, physical exam, medical decision making, and the department course for this patient. I have also personally directed, reviewed, and agree with the discharge instructions and disposition. Disposition/Present on Arrival - Present on Arrival Any Indicators Present on Arrival: Yes History of DVT/PE: Yes History of Uncontrolled Diabetes: No Urinary Catheter: No History Surgical Site Infection Following: None - Disposition Have Diagnosis and Disposition been Completed?: Yes Diagnosis: Nasal congestion with rhinorrhea Disposition: HOME/ ROUTINE Disposition Time: 15:00 Patient Plan: Discharge Condition: GOOD Discharge Instructions (ExitCare): Upper Respiratory Infection (ED) Additional Instructions: Discuss with your popcorn vendor tomorrow the further dosing of your coumadin. Your INR level today is 3.07. Otherwise take the medications as prescribed. Follow up with your primary care doctor. Return to the emergency department if any new concerning symptoms. Prescriptions: Albuterol HFA [Ventolin HFA 90 mcg/actuation (8 g)] 2 puff IH Q4H #1 inhaler Fluticasone Nasal [Flonase] 2 spr NS DAILY #1 bottle guaiFENesin/Codeine [Codeine/Guaifenesin 10 MG/5 Ml-100 MG/5 Ml 5] 2 tsp PO Q6H PRN #120 ml PRN Reason: Cough predniSONE [Prednisone] 2 tab PO DAILY #8 tab Referrals: Gavin Lawrence MD [Staff Provider] - Follow up with primary
[2017-01-30] MEDS ORDERED: Levalbuterol 1.25 MG/3 ML Inhal Soln UD IH STA (12:15)
[2017-01-30] MEDS ORDERED: Ipratropium 0.02% Inhal Soln (0.5 mg/2.5 ml) UD IH STA (12:15)
--- NOTE | 2017-01-30 13:43 | RAD ---
HISTORY: sob, COMPARISON: 01/16/2017 FINDINGS: LUNGS: No active pulmonary disease. PLEURA: No significant pleural effusion identified, no pneumothorax apparent. CARDIOVASCULAR: Normal. OSSEOUS STRUCTURES: No significant abnormalities. VISUALIZED UPPER ABDOMEN: Normal. OTHER FINDINGS: None. IMPRESSION: No active disease.
[2017-01-30 13:59] LABS: ADD MANUAL DIFF? NO
[2017-01-30 14:06] LABS: BASO # 0.02 K/mm3 (0.0-2.0); BASO % 0.4 % (0.0-3.0); EOS # 0.1 (0.0-0.7); EOS % 1.8 % (1.5-5.0); GRAN # 4.22 (1.4-6.5); GRAN % 77.1 % (50.0-68.0); HEMATOCRIT 34.5 % (36.0-48.0); LYMPH # 0.8 (1.2-3.4); LYMPH % 14.3 % (22.0-35.0); MEAN CELL VOLUME 81.4 fL (80.0-105.0); MEAN CORPUSCULAR HEMOGLOBIN 27.1 pg (25.0-35.0); MEAN CORPUSCULAR HGB CONC 33.3 g/dl (31.0-37.0); MEAN PLATELET VOLUME 10.3 fl (7.0-11.0); MONO # 0.4 (0.1-0.6); MONO % 6.4 % (1.0-6.0); PLATELET COUNT 276 10^3/uL (120.0-450.0); WHITE BLOOD COUNT 5.5 10^3/ul (4.5-11.0)
[2017-01-30 14:16] LABS: ALB/GLOB RATIO 1.2 (1.1-1.8); ALKALINE PHOSPHATASE 117 U/L (38-133); ALT/SGPT 33 U/L (7-56); AST/SGOT 22 U/L (15-39); BILIRUBIN,TOTAL 0.4 mg/dL (0.2-1.3); BLOOD UREA NITROGEN 13 mg/dL (7-21); CALCIUM 9.2 mg/dL (8.4-10.5); CARBON DIOXIDE 21 mmol/L (21-33); CHLORIDE 100 mmol/L (98-107); GFR AFRICAN-AMERICAN > 60; GLUCOSE,RANDOM 131 mg/dL (70-110); INR 3.07 (0.93-1.08); LIPASE 170 U/L (23-300); MAGNESIUM 1.8 mg/dL (1.7-2.2); PARTIAL THROMBOPLASTIN TIME 42.9 Seconds (23.7-30.8); POTASSIUM 3.2 mmol/L (3.6-5.0); SODIUM 133 mmol/L (132-148); TOTAL PROTEIN 7.6 g/dL (5.8-8.3)
[2017-01-30 14:28] LABS: TROPONIN I < 0.01 ng/mL
[2017-01-30 15:08] VITALS: BP 128/69; PULSE 89; O2SAT 96
--- NOTE | 2017-01-31 07:55 | CARD ---
APPROVED REPORT EKG Measurement Heart [id number] <Conclusion> Normal sinus rhythm Low voltage QRS NSSTW changes
== END 2017-01-30 15:14 | disposition home or self-care (01) ==
LOC: ED 11:50
DX: R09.81 Nasal congestion (principal); J34.89 Other specified disorders of nose and nasal sinuses; I10 Essential (primary) hypertension; J45.909 Unspecified asthma, uncomplicated
CPT/HCPCS: 71010; 80053; 82550; 83615; 83690; 83735; 83880; 84484; 85025; 85610; 85730; 93005; 96374; 99285; J2930